=== PATIENT | male | born 1950 | race Caucasian/White ===

== ENCOUNTER → 2019-09-09 08:26 | Outpatient (CLI) | payer MEDICARE, SELFPAY ==
--- NOTE | ~2019-09-09 | MR_ITS ---
EXAMINATION: MR brain/brain stem wo/w con EXAM DATE: 09/09/2019 09:28 INDICATION: Left-sided paresthesia. TECHNIQUE: Magnetic resonance imaging (MRI) of the brain/brain stem obtained without contrast. Sagit emery T1, axial diffusion, gradient echo (T2*), T1, T2, FLAIR sequences obtained. Patient was then inj ected with 15 cc intravenous Multihance contrast. Axial and coronal postcontrast T1 weighted sequence s obtained. There is no prior study for comparison. FINDINGS: There is increased T2 and diffusion weighted signal intensity within the right thalamus, an d small regions within the right occipital lobe involving the peripheral feng matter cortex. Small re gion of ill-defined enhancement in the right thalamic signal abnormality. These are consistent with s ubacute infarctions (probably about a week in age). No acute intracranial hemorrhage or mass suspected. No obstructive hydrocephalus or extra-axial colle ctions. Mild microangiopathy and cerebral atrophy. There is mild mucoperiosteal thickening. Orbits an d soft tissues are unremarkable. IMPRESSION: 1. Right thalamic, small right occipital lobe signal abnormalities consistent with subacute infarcti ons. Consider 3 month follow-up MRI or head CT. 2. Mild age-related findings. I discussed infarctions with Brendan Poole MD at 09/09/2019 09:46 CDT. Reviewed, dictated and finalized at location A. IMPRESSION: 1. Right thalamic, small right occipital lobe signal abnormalities consistent with subacute infarctions. Consider 3 month follow-up MRI or head CT. 2. Mild age-related findings. I discussed infarctions with Brendan Poole MD at 09/09/2019 09:46 CDT.
[2019-09-09 08:56] LABS: Estimated Glomerular Filt Rate > 60
== END ==
PROVIDERS: PCP Internal Medicine; Visit Provider Internal Medicine
DX: G45.9 Transient cerebral ischemic attack, unspecified (principal); R93.0 Abnormal findings on diagnostic imaging of skull and head, not elsewhere classified
CPT/HCPCS: 36415; 70553; A9577

== ENCOUNTER 2019-10-07 21:32 | IRF | payer MEDICARE, SELFPAY ==
--- NOTE | ~2019-10-07 | XR_ITS ---
EXAMINATION: XR abdomen/kub 1V INDICATION: Abdominal distention TECHNIQUE: Supine views of the abdomen were obtained on 3 radiographs. COMPARISON: None FINDINGS: A large volume of colonic stool is present. There are no dilated loops of bowel. No free intraperiton eal gas is identified. Phleboliths are noted in the pelvis. There is calcified atherosclerosis. IMPRESSION: 1. Constipation. Reviewed, dictated and finalized at location A. IMPRESSION: 1. Constipation.
[2019-10-07 21:09] LABS: Glucose Point of Care 236 (65-105)
--- NOTE | 2019-10-07 21:35 | ADMGEN ---
This patient, Abilio Grijalva, was admitted to [facility] Room 222-02 at 1999. Patient/family oriented to hospital policies and general routines including ID bracelet, bed and alarms, visiting hours, pain management, procedures, bathroom and other care routines, personal items, smoking policy, room service/diet, and visiting hours. Valuables list has been completed. Information on how to activate the Rapid Response Team has been discussed. Patient/Family are encouraged to report perceived risks to care and to ask questions if they do not understand what they are told or what they should do.
[2019-10-07 22:00] VITALS: BP 159/84; PULSE 81; RESP 18; TEMP 36.5; O2SAT 96
[2019-10-07 22:51] VITALS: BMI 24.0
[2019-10-07] MEDS: HEPARIN SODIUM 5,000 UNITS/ML VIAL 5000 UNITS SUB-Q (23:30)
[2019-10-07] MEDS: PHENYTOIN SODIUM 100 MG CAP 200 MG PO (23:30)
[2019-10-08 05:35] LABS: Basophils Percent Auto 0.5 % (0.2-1.2); Eosinophils Absolute Auto 0.3 K/mm3 (0-0.3); Eosinophils Percent Auto 3.9 % (0-4.4); Hematocrit 35.7 % (42.0-52.0); Hemoglobin 12.4 g/dL (14.0-18.0); Immature Granulocyte Absolute 0.04 K/mm3 (0.00-0.031); Immature Granulocyte Percent A 0.5 % (0-0.5); Lymphocytes Absolute Auto 1.02 K/mm3 (0.9-3.2); Lymphocytes Percent Auto 13.7 % (18.3-44.2); Mean Corpuscular HGB Conc 34.7 g/dl (32-36); Mean Corpuscular Hemoglobin 33.3 pg (26-34); Mean Platelet Volume 9.8 fl (7.4-10.4); Monocytes Absolute Auto 0.8 K/mm3 (0.1-0.6); Monocytes Percent Auto 11.2 % (2.6-8.5); Neutrophils Absolute Auto 5.2 K/mm3 (1.3-6.7); Neutrophils Percent Auto 70.2 % (45.5-73.1); Platelet Count Result 187 k/mm3 (150-375); Red Blood Count 3.72 M/mm3 (4.6-6.20); Red Cell Distribution Width 12.6 % (11.5-14.5); White Blood Count 7.4 K/mm3 (4.5-10.0)
[2019-10-08 05:38] LABS: Hemoglobin A1C 7.8 % (<5.7)
[2019-10-08 05:42] LABS: Cholesterol 123 mg/dL (0-200)
[2019-10-08 05:55] LABS: Anion Gap 5 mmol/L (8-16); Blood Urea Nitrogen 20 mg/dL (9-20); Calcium 7.5 mg/dL (8.4-10.2); Carbon Dioxide 23 mmol/L (22-30); Chloride 107 mmol/L (98-107); Estimated CRCL calculation 101 ml/min; Estimated Glomerular Filt Rate > 60; Glucose 164 mg/dL (75-110); Potassium 3.9 mmol/L (3.4-5.0); Sodium 135 mmol/L (137-145)
[2019-10-08 06:00] VITALS: BP 155/88; PULSE 86; RESP 18; TEMP 36.1; O2SAT 95
[2019-10-08] MEDS: HEPARIN SODIUM 5,000 UNITS/ML VIAL 5000 UNITS SUB-Q ×3 (06:03→20:03)
[2019-10-08 06:11] LABS: Glucose Point of Care 185 (65-105)
[2019-10-08] MEDS: LEVOTHYROXINE SODIUM 50 MCG TABLET PO (07:36)
[2019-10-08] MEDS: VALSARTAN 160 MG TABLET 320 MG PO (09:17)
[2019-10-08] MEDS: SENNA/DOCUSATE SODIUM TABLET 1 TAB PO ×2 (09:17→18:03)
[2019-10-08] MEDS: TAMSULOSIN HCL 0.4 MG CAPSULE PO (09:18)
[2019-10-08] MEDS: amLODIPine BESYLATE 5 MG TABLET 10 MG PO (09:18)
[2019-10-08] MEDS: PHENYTOIN SODIUM 100 MG CAP 200 MG PO (09:18)
[2019-10-08] MEDS: ASPIRIN 81 MG CHEWABLE TABLET PO (09:18)
[2019-10-08] MEDS: ATORVASTATIN 40 MG TABLET PO (09:18)
[2019-10-08] MEDS: ACETAMINOPHEN 325 MG TABLET 650 MG PO (10:56)
[2019-10-08 11:00] VITALS: BMI 10.0
[2019-10-08 11:44] LABS: Glucose Point of Care 256 (65-105)
--- NOTE | 2019-10-08 12:21 | WPDREHABHP ---
H&P: HPI History of Present Illness Date/Time: 10/08/19 12:21 Chief complaint: CVA Narrative: Abilio Grijalva is a 69 year old male HISTORY OF PRESENT ILLNESS: The patient's primary rehab impairment category isStroke [] The etiologic diagnosis is acute infarct right occipital lobe right cerebral peduncle and adjacent right thalamus[] I saw this patient [id number] on on October 08, 2019 at 12 noon[] The patient is a 66 years old male with past medical history of diabetes mellitus type 2 and hypertension who presented to [facility] on October 04, 2019 after waking up with left-sided weakness. Per patient report he had an MRI a week ago at [facility] for left-sided numbness and was told that he had mini strokes on arrival to the emergency room the patient's NIHSS was 12 CT of the head showed right occipital encephalomalacia. CTA showed right P1 occlusion. CT perfusion showed old to be 0cc area at risk 18cc. He did not receive tPA as he presented outside the window. Mechanical thrombectomy was not considered as a right occipital infarct appeared to be developed. Neurology was consulted and the patient was continued on atorvastatin and aspirin. Brain MRI demonstrated acute infarct in the right occipital lobe, right cerebral peduncle, and adjacent right thalamus. EKG and echocardiogram with bubble study were negative for potential contributing factors. CT angiography did showed complete occlusion of the posterior cerebral artery in the P1 region. Glynn was unremarkable. A loop recorder was placed. The patient passed a swallowing study and is on a mechanical soft diet with thin liquids. The patient's hospital course has been significant for hypertension hyperglycemia leukocytosis left inferior quadrant anopsia progressing to full left homonymous hemianopsia Physical examination continues to reveal left-sided hemiparesis with decreased gross motor control impaired balance and decreased safety awareness. The patient was discharged to rehab on subcutaneous heparin for DVT prophylaxis. The patient has no travelled outside the [place] or had contact with someone who wasill or has travelied outside the [place] in the past 21 days patient has not travelied to an area of the [place] that is experiencing transmission of the Coronavirus and has not had close personal contact with anyone that has.The patient does not havefever, not experience any lower respiratory illness symptoms. Therapy was initiated at the acute care facility and the patient transferred to us from [[facility]] on October 07, 2019 [] FALLS OR SURGERIES: The patient has had [no] major surgeries in the 100 days prior to admission. They had [no] falls in the past year. They had [no] falls with injury in the past year. PAST MEDICAL HISTORY: [ diabetes mellitus type 2 hypertension and prior TIAs] PAST SURGICAL HISTORY: [ none] SOCIAL HISTORY: [ the patient lives independently in a 1 level home with 3 steps to enter. The patient was completely independent and only used a cane when his knees were hurting. He was independent with cooking and cleaning. His daughter and son-in-law checked on the patient daily. The patient's family is very supportive and wants the patient to come home. , his ability to do so will depend on what the patient is able to achieve with intensive therapy. Drinks socially, denies smoking or using drugs.] FAMILY HISTORY: Noncontributory[] PRIOR LEVEL OF FUNCTION: Eating was [INDEPENDENT] Oral Care was [INDEPENDENT] Toileting Hygiene was [INDEPENDENT] Shower/Bathing was [INDEPENDENT] Upper Body Dressing was [INDEPENDENT] Lower Body Dressing was [INDEPENDENT] Donning/[place] Footwear was [INDEPENDENT] Rolling Left and Right was [INDEPENDENT] Sit to Lying was [INDEPENDENT] Lying to Sitting was [INDEPENDENT] Sit to Stand was [INDEPENDENT] Bed to Chair Transfers was [INDEPENDENT] Toilet Transfers was [INDEPENDENT] Walking was [
--- NOTE | 2019-10-08 13:56 | PCCCNOTE ---
On 10/08/19, the student, [Everardo Don ], provided care and completed [facility] documentation on this patient. I have reviewed the student's documentation and agree with the findings.
[2019-10-08 14:00] VITALS: BP 148/78; PULSE 84; RESP 18; TEMP 36.3; O2SAT 98
[2019-10-08 14:16] VITALS: BMI 24.0
[2019-10-08 16:56] LABS: Glucose Point of Care 268 (65-105)
[2019-10-08] MEDS: metFORMIN HCL XR 500 MG TAB.SR.24H 1000 MG PO (16:56)
[2019-10-08 18:15] LABS: Add Urine Microscopic? YES; Appearance Urine Clear (Clear); Bilirubin Urine Negative (Negative); Blood Urine 1+ (Negative); Color Urine Yellow (Yellow); Glucose Urine UA 3+ mg/dL (Negative); Ketones Urine Negative (Negative); Leukocyte Esterase Ur Negative LEU/UL (Negative); Nitrate Urine Negative (Negative); Protein Urine 2+ mg/dL (Negative); Specific Grav Ur 1.015 (1.001-1.035); Urobilinogen Urine Negative mg/dL (<2.0); WBC Urine 0-3 /hpf
[2019-10-08] MEDS: PHENYTOIN SODIUM 100 MG CAP 300 MG PO (20:03)
[2019-10-08] MEDS: INSULIN GLARGINE (*BKC) 100 UNITS/ML 60 UNITS SUB-Q (20:24)
[2019-10-08 20:55] LABS: Glucose Point of Care 294 (65-105)
[2019-10-08 21:57] VITALS: BP 146/87; PULSE 95; RESP 18; TEMP 35.7; O2SAT 96
[2019-10-09] MEDS: HEPARIN SODIUM 5,000 UNITS/ML VIAL 5000 UNITS SUB-Q ×3 (05:22→20:09)
[2019-10-09] MEDS: LEVOTHYROXINE SODIUM 50 MCG TABLET PO (05:22)
[2019-10-09 06:00] VITALS: BP 152/71; PULSE 89; RESP 18; TEMP 36.1; O2SAT 97
[2019-10-09 07:02] LABS: Glucose Point of Care 185 (65-105)
[2019-10-09] MEDS: amLODIPine BESYLATE 5 MG TABLET 10 MG PO (09:31)
[2019-10-09] MEDS: ASPIRIN 81 MG CHEWABLE TABLET PO (09:31)
[2019-10-09] MEDS: SENNA/DOCUSATE SODIUM TABLET 1 TAB PO ×2 (09:32→18:24)
[2019-10-09] MEDS: VALSARTAN 160 MG TABLET 320 MG PO (09:32)
[2019-10-09] MEDS: PHENYTOIN SODIUM 100 MG CAP 200 MG PO (09:32)
[2019-10-09] MEDS: TAMSULOSIN HCL 0.4 MG CAPSULE PO (09:32)
[2019-10-09] MEDS: ATORVASTATIN 40 MG TABLET PO (09:32)
[2019-10-09] MEDS: ACETAMINOPHEN 325 MG TABLET 650 MG PO (09:42)
[2019-10-09 11:32] VITALS: BP 146/70; PULSE 82; O2SAT 95
[2019-10-09] MEDS: MECLIZINE HCL 25 MG TABLET PO (12:19)
--- NOTE | 2019-10-09 12:58 | RPD ---
INDIVIDUALIZED PLAN OF CARE FOR Abilio Grijalva Brief Synthesis of Pre-Admission Screen, Post-Admission Evaluation and Therapy Evaluations: The patient presents to rehab with an acute infarct right occipital lobe, right cerebral peduncle, and adjacent right thalamus. 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 Emotional needs will be monitored as depression is a common sequelae of stroke. The patient needs physician monitoring and treatment of anemia, hypertension, hyperglycemia, monitoring for adverse reactions to new medications, monitoring of infection, and pain control. The patient requires nursing services for frequent neuro checks, anticoagulation therapy, medication management and education, pressure relief and skin care management, monitoring of labs, diabetes management and education, and fall/safety precautions. Deficits include:ADLs, Balance, Cognition, Endurance, Family Training/Education, Mobility, Pain Management, ROM, Safety, Strength, Swallowing, Transfers Wreath Machine Operator/Case Management for: Discharge Planning and Patient/Family Counseling Physical Therapy: 5 days per week for 75 minutes. Treatments may include: Therapeutic Exercise, Gait Training, Neuromuscular Re-education, Transfer Training, Community Reintegration, Bed Mobility, Patient/Family Education, Wheelchair Mobility Group Therapy/Concurrent Therapy Rationales: -Improve attention span during functional activities in a distracted environment. -Enhance problem solving and/or adequate judgment skills during functional activities in a distracted environment. -Promote increased safety awareness in a distracted environment to reduce fall risk with functional tasks, transfers, and ambulation to allow a more safe, self-sufficient return to the home environment. -Improve dynamic balance skills to promote safety and independence with functional activities in a distracted environment for maximum gain. Occupational Therapy: 5 days per week for 75 minutes. Treatments may include: Therapeutic Exercise, Therapeutic Activity, Cognitive Training, Self-Care Transfer Training, Community Reintegration, Home Management, Patient/Family Education, Wheelchair Mobility Training, Energy Conservation Training Group Therapy/Concurrent Therapy Rationales: -Allow therapist to observe and teach generalization and carry-over of skills learned in individual therapy. -Enhance problem solving and sequencing skills during therapeutic activities in a distracted environment. -Promote increased safety awareness in a realistic setting to reduce fall risk with functional tasks due to visual and verbal distractions. -Increase functional level with ADLs, ADL transfers and use of adaptive equipment through therapeutic activities with others while promoting safety to allow a more safe, self-sufficient return home. Speech Therapy: 5 days per week for 30 minutes. Treatments may include: Dysphasia Therapy, Speech/Language/Communication Therapy, Cognitive Training, Patient/Family Education Group Therapy/Concurrent Therapy - Rationale: -Allow therapist to observe and teach generalization and carry-over of skills learned in individual therapy. -Improve comprehension skills with complex or abstract ideas through discussion in a realistic setting. -Enhance problem solving skills with complex issues during activities in a distracted environment. -Promote increased memory skills and concentration in a distracted environment for a safe transition home. -Improve attention and focus with language/communication skills in a realistic and supportive therapeutic setting.
[2019-10-09 13:01] VITALS: BP 141/79; PULSE 85; O2SAT 96; BMI 10.0
[2019-10-09 14:00] VITALS: BP 163/68; PULSE 80; RESP 20; TEMP 36.5; O2SAT 96
--- NOTE | 2019-10-09 14:19 | WPDNEURORHBP ---
Subjective Date/time seen: 69 years old admitted to the hospital for acute infarct in the right occipital lobe and the right patent also Joya adjacent thalamus in addition to comorbid condition of diabetes mellitus type 2 [id number]/21/20 14:19 Review of Systems Review of Systems: Narrative: reviewed the system are unremarkable except as noted in the admission history and physical examination Functional Status Transfers Ability Ability to Transfer In/Out of Chair: Total Assistance X 2 Exam Narrative: Exam Narrative: examination today reveals him to be awake alert cooperative ear nose throat examination normal neck supple with no cervical bruits no thyromegaly no lymphadenopathy heart regular with no murmur lungs clear to auscultation abdomen soft with no organomegaly or examination is consistent with a left hemiparesis with hyperreflexia upgoing left plantar response extremity is normal his skin clear and psychologically stable Objective Data Vital Signs Vital Signs: Vital Signs - 24 hr 10/08/19 21:57 10/09/19 06:00 Temperature 35.7 C L 36.1 C L Pulse Rate 95 89 Respiratory Rate 18 18 Blood Pressure 146/87 H 152/71 H Pulse Oximetry 96 97 Intake/Output Intake/Output: Intake & Output 10/06/19 10/07/19 10/08/19 10/09/19 23:59 23:59 23:59 23:59 Intake Total 720 440 Output Total 1250 1400 Balance -530 -960 Meds/Results Medications: Active Medications Generic Name Dose Route Start Last Admin Trade Name Freq PRN Reason Stop Dose Admin Acetaminophen 650 mg 10/08/19 00:56 10/09/19 09:42 Tylenol Tablet PO 650 mg Q4H PRN Administration Headache Amlodipine Besylate 10 mg 10/08/19 09:00 10/09/19 09:31 Norvasc PO 10 mg DAILY PALKA Administration Aspirin 81 mg 10/08/19 08:00 10/09/19 09:31 Aspirin Chewable PO 81 mg DAILY@0800 PALAK Administration Atorvastatin Calcium 40 mg 10/08/19 09:00 10/09/19 09:32 Lipitor PO 40 mg DAILY PALAK Administration Dextrose 12.5 gm 10/07/19 22:21 Dextrose 50% Syringe IV PUSH PRN PRN Hypoglycemia Protocol Fluticasone Propionate 1 spray 10/09/19 21:00 Flonase 0.05% Nasal [place] NASAL Q12HR PALAK Glucagon 1 mg 10/07/19 22:21 Glucagon For Inj IM PRN PRN Hypoglycemia Protocol Glucose 15 gm 10/07/19 22:21 Glutose 15 PO PRN PRN Hypoglycemia Protocol Heparin Sodium (Porcine) 5,000 units 10/07/19 22:05 10/09/19 05:22 Heparin Sodium SUB-Q 5,000 units Q8HR PALAK Administration Dextrose 1,000 mls @ 100 mls/hr 10/07/19 22:21 Dextrose 5% 1,000 Ml IVPB PRN PRN Hypoglycemia Protocol Insulin Glargine 60 units 10/08/19 21:00 10/08/19 20:24 Lantus SUB-Q 60 units HS PALAK Administration Levothyroxine Sodium 50 mcg 10/08/19 06:30 10/09/19 05:22 Synthroid PO 50 mcg DAILY@0630 PALAK Administration Meclizine HCl 25 mg 10/08/19 11:42 10/09/19 12:19 Antivert PO 25 mg QID PRN Administration Dizziness Metformin HCl 1,000 mg 10/08/19 17:00 10/08/19 16:56 Glucophage Xr PO 1,000 mg Q24H PALAK Administration Phenytoin Sodium 200 mg 10/08/19 09:00 10/09/19 09:32 Dilantin [place] PO 11/07/19 09:01 200 mg QAM PALAK Administration Phenytoin Sodium 300 mg 10/08/19 21:00 10/08/19 20:03 Dilantin [place] PO 11/07/19 22:11 300 mg HS PALAK Administration Polyethylene Glycol 17 gm 10/07/19 21:51 Miralax PO DAILY PRN Constipation Senna/Docusate Sodium 1 tab 10/08/19 09:00 10/09/19 09:32 Senokot S Tablet PO 1 tab BID PALAK Administration Sitagliptin Phosphate 100 mg 10/08/19 17:00 10/08/19 16:56 Januvia PO 100 mg Q24H PALAK Administration Tamsulosin HCl 0.4 mg 10/08/19 09:00 10/09/19 09:32 Flomax PO 0.4 mg DAILY PALAK Administration Valsartan 320 mg 10/08/19 09:00 10/09/19 09:32 Diovan PO 11/07/19 09:01 320 mg DAILY PALAK Administrati
[2019-10-09 17:07] LABS: Glucose Point of Care 284 (65-105)
[2019-10-09] MEDS: metFORMIN HCL XR 500 MG TAB.SR.24H 1000 MG PO (18:24)
[2019-10-09] MEDS: FLUTICASONE PROPIONATE 0.05% NA SPR 16 GM BTL (*BKC) 1 SPRAY NASAL (20:08)
[2019-10-09] MEDS: PHENYTOIN SODIUM 100 MG CAP 300 MG PO (20:09)
[2019-10-09] MEDS: INSULIN GLARGINE (*BKC) 100 UNITS/ML 60 UNITS SUB-Q (20:12)
[2019-10-09 21:18] LABS: Glucose Point of Care 257 (65-105)
[2019-10-09 22:00] VITALS: BP 158/89; PULSE 94; RESP 16; TEMP 36.8; O2SAT 93
[2019-10-10] MEDS: ACETAMINOPHEN 325 MG TABLET 650 MG PO ×2 (05:17→19:40)
[2019-10-10 06:00] VITALS: BP 169/88; PULSE 90; RESP 20; TEMP 36.6; O2SAT 96
[2019-10-10 06:45] LABS: Glucose Point of Care 211 (65-105)
[2019-10-10] MEDS: HEPARIN SODIUM 5,000 UNITS/ML VIAL 5000 UNITS SUB-Q ×3 (06:49→19:41)
[2019-10-10] MEDS: LEVOTHYROXINE SODIUM 50 MCG TABLET PO (06:50)
[2019-10-10] MEDS: ASPIRIN 81 MG CHEWABLE TABLET PO (08:00)
[2019-10-10] MEDS: FLUTICASONE PROPIONATE 0.05% NA SPR 16 GM BTL (*BKC) 1 SPRAY NASAL (09:14)
[2019-10-10] MEDS: TAMSULOSIN HCL 0.4 MG CAPSULE PO (09:14)
[2019-10-10] MEDS: VALSARTAN 160 MG TABLET 320 MG PO (09:14)
[2019-10-10] MEDS: PHENYTOIN SODIUM 100 MG CAP 200 MG PO (09:14)
[2019-10-10] MEDS: ATORVASTATIN 40 MG TABLET PO (09:14)
[2019-10-10] MEDS: amLODIPine BESYLATE 5 MG TABLET 10 MG PO (09:14)
[2019-10-10] MEDS: SENNA/DOCUSATE SODIUM TABLET 1 TAB PO ×2 (09:14→17:07)
[2019-10-10 11:05] VITALS: BP 160/80; PULSE 91; O2SAT 94
[2019-10-10 12:33] LABS: Glucose Point of Care 233 (65-105)
[2019-10-10 14:00] VITALS: BP 150/76; PULSE 99; RESP 20; TEMP 36.5; O2SAT 96
--- NOTE | 2019-10-10 15:51 | WPDNEURORHBP ---
Subjective Date/time seen: 10/10/19 15:51 Interval history: this 69-year-old gentleman is here after having had right occipital lobe, right cerebral peduncle, and adjusted right thalamus stroke which has left him with significant weakness of the left side for almost to a point of hemiplegia but he has been complaining of left ear pain which seems like a neurology a type of pain he is said is started after the stroke and never had this kind of the pain seems to be rather very uncomfortable with the pain that is also also in the mild occipital headache also beside that he remains awake and alert denies any chest pain shortness breath fever chills sore throat Review of Systems Review of Systems: All systems reviewed & are unremarkable except as noted in HPI and below Functional Status Transfers Ability Ability to Transfer In/Out of Chair: Total Assistance X 2 Exam Const: General: uncomfortable Other: complains of significant amount of pain 8 to 9/10 of the left pinna which is relatively reddish but no sign of infection HENMT: General nose exam: Normal nares present Mouth: Yes moist mucous membranes Eyes: General: appearance normal, both eyes and all related structures Neck: Neck: supple and no JVD Other: no carotid bruit Resp: Effort & Inspection: normal respiratory effort Auscultation: clear to auscultation bilaterally Cardio: Rate: regular rate Rhythm: regular rhythm GI: GI Palp: Yes Soft to palpation Auscultation: normal bowel sounds Skin: General skin exam: normal color and no rashes or lesions noted Neuro: Other: patient awake and alert well oriented and has a significant left-sided almost hemiplegia and visual field defect on the side Extrem: General: normal to inspection Psych: Other: short-term memory deficit and mild encephalopathy which is most likely due to amount of pain is having Objective Data Vital Signs Vital Signs: Vital Signs - 24 hr 10/09/19 22:00 10/10/19 06:00 10/10/19 14:00 Temperature 36.8 C 36.6 C 36.5 C Pulse Rate 94 90 99 Respiratory Rate 16 20 20 Blood Pressure 158/89 H 169/88 H 150/76 H Pulse Oximetry 93 96 96 Intake/Output Intake/Output: Intake & Output 10/07/19 10/08/19 10/09/19 10/10/19 23:59 23:59 23:59 23:59 Intake Total 720 920 480 Output Total 1713 6449 9021 [id number] -613 -4888 -820 Meds/Results Medications: Active Medications Generic Name Dose Route Start Last Admin Trade Name Freq PRN Reason Stop Dose Admin Acetaminophen 650 mg 10/08/19 00:56 10/10/19 05:17 Tylenol Tablet PO 650 mg Q4H PRN Administration Headache Hydrocodone Bitart/Acetaminophen 1 tab 10/10/19 14:30 [place] 5-325 Mg PO Q4H PRN Pain Rated 4-6 Hydrocodone Bitart/Acetaminophen 2 tab 10/10/19 14:30 [place] 5-325 Mg PO Q4H PRN Pain Rated 7-10 Amlodipine Besylate 10 mg 10/08/19 09:00 10/10/19 09:14 Norvasc PO 10 mg DAILY PALAK Administration Aspirin 81 mg 10/08/19 08:00 10/10/19 08:00 Aspirin Chewable PO 81 mg DAILY@0800 PALAK Administration Atorvastatin Calcium 40 mg 10/08/19 09:00 10/10/19 09:14 Lipitor PO 40 mg DAILY PALAK Administration Dextrose 12.5 gm 10/07/19 22:21 Dextrose 50% Syringe IV PUSH PRN PRN Hypoglycemia Protocol Fluticasone Propionate 1 spray 10/10/19 09:00 10/10/19 09:14 Flonase 0.05% Nasal [place] NASAL 1 spray QAM PALAK Administration Glucagon 1 mg 10/07/19 22:21 Glucagon For Inj IM PRN PRN Hypoglycemia Protocol Glucose 15 gm 10/07/19 22:21 Glutose 15 PO PRN PRN Hypoglycemia Protocol Heparin Sodium (Porcine) 5,000 units 10/07/19 22:05 10/10/19 14:48 Heparin Sodium SUB-Q 5,000 units Q8HR PALAK Administration Dextrose 1,000 mls @ 100 mls/hr 10/07/19 22:21 Dextrose 5% 1,000 Ml IVPB PRN PRN Hypoglycemia Protocol Insulin Glargine 60 units 10/08/19 21:00 10/09/19 20:12 Lantus SUB
[2019-10-10] MEDS: GABAPENTIN 100 MG CAPSULE PO (17:07)
[2019-10-10] MEDS: metFORMIN HCL XR 500 MG TAB.SR.24H 1000 MG PO (17:07)
[2019-10-10 18:16] LABS: Glucose Point of Care 336 (65-105)
[2019-10-10] MEDS: MECLIZINE HCL 25 MG TABLET PO (19:40)
[2019-10-10] MEDS: PHENYTOIN SODIUM 100 MG CAP 300 MG PO (19:41)
[2019-10-10] MEDS: INSULIN GLARGINE (*BKC) 100 UNITS/ML 60 UNITS SUB-Q (19:46)
[2019-10-10 20:15] VITALS: PULSE 73; RESP 20; O2SAT 93
[2019-10-10] MEDS: SALINE 0.65% NAS SOLN 44 ML BTL 1 SPRAY NASAL (21:18)
[2019-10-10 21:46] LABS: Glucose Point of Care 316 (65-105)
[2019-10-10 22:00] VITALS: BP 173/81; PULSE 73; RESP 20; TEMP 37.1; O2SAT 93
[2019-10-10] MEDS: QUEtiapine FUMARATE 25 MG TABLET PO (22:58)
[2019-10-11 00:16] LABS: Basophils Absolute Auto 0.1 K/mm3 (0.0-0.1); Basophils Percent Auto 0.6 % (0.2-1.2); Eosinophils Absolute Auto 0.2 K/mm3 (0-0.3); Eosinophils Percent Auto 2.3 % (0-4.4); Hematocrit 34.4 % (42.0-52.0); Hemoglobin 12.2 g/dL (14.0-18.0); Immature Granulocyte Absolute 0.12 K/mm3 (0.00-0.031); Immature Granulocyte Percent A 1.2 % (0-0.5); Lymphocytes Absolute Auto 1.64 K/mm3 (0.9-3.2); Lymphocytes Percent Auto 16.1 % (18.3-44.2); Mean Corpuscular HGB Conc 35.5 g/dl (32-36); Mean Corpuscular Hemoglobin 33.9 pg (26-34); Mean Corpuscular Volume 95.6 fl (80-100); Mean Platelet Volume 9.7 fl (7.4-10.4); Monocytes Absolute Auto 1.3 K/mm3 (0.1-0.6); Monocytes Percent Auto 13.1 % (2.6-8.5); Neutrophils Absolute Auto 6.8 K/mm3 (1.3-6.7); Neutrophils Percent Auto 66.7 % (45.5-73.1); Platelet Count Result 212 k/mm3 (150-375); Red Cell Distribution Width 12.8 % (11.5-14.5); White Blood Count 10.2 K/mm3 (4.5-10.0)
[2019-10-11 00:27] LABS: Alanine Aminotransferase 30 U/L (4-50); Albumin Level 3.3 g/dL (3.5-5.1); Alkaline Phosphatase 91 U/L (38-126); Anion Gap 7 mmol/L (8-16); Aspartate Amino Transferase 32 U/L (17-59); Bilirubin,Total < 0.1 mg/dL (0.2-1.3); Blood Urea Nitrogen 20 mg/dL (9-20); Calcium 8.4 mg/dL (8.4-10.2); Carbon Dioxide 23 mmol/L (22-30); Chloride 105 mmol/L (98-107); Estimated CRCL calculation 77 ml/min; Estimated Glomerular Filt Rate > 60; Glucose 283 mg/dL (75-110); Potassium 4.2 mmol/L (3.4-5.0); Sodium 135 mmol/L (137-145)
[2019-10-11] MEDS: HEPARIN SODIUM 5,000 UNITS/ML VIAL 5000 UNITS SUB-Q ×3 (05:55→21:27)
[2019-10-11] MEDS: LEVOTHYROXINE SODIUM 50 MCG TABLET PO (05:56)
[2019-10-11 06:00] VITALS: BP 180/102; PULSE 94; RESP 20; TEMP 36.4; O2SAT 97
[2019-10-11 06:30] LABS: Glucose Point of Care 204 (65-105)
[2019-10-11] MEDS: amLODIPine BESYLATE 5 MG TABLET 10 MG PO (06:53)
[2019-10-11] MEDS: ASPIRIN 81 MG CHEWABLE TABLET PO (09:58)
[2019-10-11] MEDS: ATORVASTATIN 40 MG TABLET PO (09:58)
[2019-10-11] MEDS: VALSARTAN 160 MG TABLET 320 MG PO (09:58)
[2019-10-11] MEDS: TAMSULOSIN HCL 0.4 MG CAPSULE PO (09:58)
[2019-10-11] MEDS: SENNA/DOCUSATE SODIUM TABLET 1 TAB PO ×2 (09:59→19:26)
[2019-10-11] MEDS: PHENYTOIN SODIUM 100 MG CAP 200 MG PO (09:59)
[2019-10-11] MEDS: FLUTICASONE PROPIONATE 0.05% NA SPR 16 GM BTL (*BKC) 1 SPRAY NASAL (09:59)
[2019-10-11] MEDS: MECLIZINE HCL 25 MG TABLET PO (09:59)
[2019-10-11] MEDS: GABAPENTIN 100 MG CAPSULE PO ×2 (10:00→13:52)
[2019-10-11 12:35] LABS: Glucose Point of Care 299 (65-105)
[2019-10-11 14:00] VITALS: BP 151/83; PULSE 96; RESP 20; TEMP 37; O2SAT 94
--- NOTE | 2019-10-11 17:56 | WPDNEURORHBP ---
Subjective Date/time seen: 10/11/19 17:56 Interval history: this 69-year-old gentleman is here after having had right occipital, right cerebral peduncle and right thalamus stroke with moderately severe left-sided faith paresis almost hemiplegia but complaining of neuralgic type of pain and the left temporal left occipital and left posterior auricular area which has responded a little with the low-dose of gabapentin his main issue is the pain for right now which is relatively better otherwise no nausea vomiting no change in the mental status no activity from the medical standpoint but his sugars are running high and will need adjustment accordingly Review of Systems Review of Systems: All systems reviewed & are unremarkable except as noted in HPI and below Functional Status Transfers Ability Ability to Transfer In/Out of Chair: Total Assistance X 2 Exam Const: General: uncomfortable HENMT: General nose exam: Normal nares present Mouth: Yes moist mucous membranes Other: no sign of here infection either externally or in the middle ear Eyes: General: appearance normal, both eyes and all related structures Neck: Neck: supple and no JVD Resp: Effort & Inspection: normal respiratory effort Auscultation: clear to auscultation bilaterally Cardio: Rate: regular rate Rhythm: regular rhythm GI: GI Palp: Yes Soft to palpation Auscultation: normal bowel sounds Skin: General skin exam: normal color and no rashes or lesions noted Neuro: Other: patient is awake and alert well oriented with significant left-sided weakness needing assistance all the activities of daily living Extrem: General: normal to inspection Psych: Other: signs of right hemispheric deficit Objective Data Vital Signs Vital Signs: Vital Signs - 24 hr 10/10/19 20:15 10/10/19 22:00 10/11/19 06:00 Temperature 37.1 C 36.4 C Pulse Rate 73 73 94 Respiratory Rate 20 20 20 Blood Pressure 173/81 H 180/102 H Pulse Oximetry 93 93 97 10/11/19 14:00 Temperature 37.0 C Pulse Rate 96 Respiratory Rate 20 Blood Pressure 151/83 H Pulse Oximetry 94 Intake/Output Intake/Output: Intake & Output 10/08/19 10/09/19 10/10/19 10/11/19 23:59 23:59 23:59 23:59 Intake Total 405 868 9019 880 Output Total 1250 2250 3900 3000 Balance -530 -0388 -2700 -2120 Meds/Results Medications: Active Medications Generic Name Dose Route Start Last Admin Trade Name Perryq PRN Reason Stop Dose Admin Acetaminophen 650 mg 10/08/19 00:56 10/10/19 19:40 Tylenol Tablet PO 650 mg Q4H PRN Administration Headache Hydrocodone Bitart/Acetaminophen 1 tab 10/10/19 14:30 10/10/19 23:02 [place] 5-325 Mg PO 1 tab Q4H PRN Administration Pain Rated 4-6 Hydrocodone Bitart/Acetaminophen 2 tab 10/10/19 14:30 10/11/19 11:52 [place] 5-325 Mg PO 2 tab Q4H PRN Administration Pain Rated 7-10 Amlodipine Besylate 10 mg 10/08/19 09:00 10/11/19 06:53 Norvasc PO 10 mg DAILY PALAK Administration Aspirin 81 mg 10/08/19 08:00 10/11/19 09:58 Aspirin Chewable PO 81 mg DAILY@0800 PALAK Administration Atorvastatin Calcium 40 mg 10/08/19 09:00 10/11/19 09:58 Lipitor PO 40 mg DAILY PALAK Administration Dextrose 12.5 gm 10/07/19 22:21 Dextrose 50% Syringe IV PUSH PRN PRN Hypoglycemia Protocol Fluticasone Propionate 1 spray 10/10/19 09:00 10/11/19 09:59 Flonase 0.05% Nasal [place] NASAL 1 spray QAM PALAK Administration Gabapentin 100 mg 10/10/19 17:00 10/11/19 13:52 Neurontin PO 100 mg TID PALAK Administration Glucagon 1 mg 10/07/19 22:21 Glucagon For Inj IM PRN PRN Hypoglycemia Protocol Glucose 15 gm 10/07/19 22:21 Glutose 15 PO PRN PRN Hypoglycemia Protocol Heparin Sodium (Porcine) 5,000 units 10/07/19 22:05 10/11/19 13:52 Heparin Sodium SUB-Q 5,000 units Q8HR PALAK Administration Dextrose 1,000 mls @ 100 mls/hr 10/07/19 22:21 D
[2019-10-11] MEDS: GABAPENTIN 300 MG CAPSULE PO (19:26)
[2019-10-11] MEDS: metFORMIN HCL XR 500 MG TAB.SR.24H 1000 MG PO (19:27)
[2019-10-11] MEDS: lisinopriL 10 MG TABLET PO (19:28)
[2019-10-11] MEDS: QUEtiapine FUMARATE 25 MG TABLET PO (21:27)
[2019-10-11] MEDS: PHENYTOIN SODIUM 100 MG CAP 300 MG PO (21:27)
[2019-10-11] MEDS: INSULIN GLARGINE (*BKC) 100 UNITS/ML 60 UNITS SUB-Q (21:28)
[2019-10-11] MEDS: ACETAMINOPHEN 325 MG TABLET 650 MG PO (21:37)
[2019-10-11 22:00] VITALS: BP 158/92; PULSE 100; RESP 18; TEMP 37.1; O2SAT 95
[2019-10-11 22:31] LABS: Glucose Point of Care 293 (65-105)
[2019-10-12 06:00] VITALS: BP 145/67; PULSE 93; RESP 18; TEMP 36.8; O2SAT 96
[2019-10-12] MEDS: SALINE 0.65% NAS SOLN 44 ML BTL 1 SPRAY NASAL (06:40)
[2019-10-12] MEDS: HEPARIN SODIUM 5,000 UNITS/ML VIAL 5000 UNITS SUB-Q ×3 (06:41→20:20)
[2019-10-12] MEDS: LEVOTHYROXINE SODIUM 50 MCG TABLET PO (06:41)
[2019-10-12 06:51] LABS: Glucose Point of Care 171 (65-105)
[2019-10-12] MEDS: INSULIN ASPART (*BKC) 100 UNITS/ML SUB-Q ×3 (09:22→17:08)
[2019-10-12] MEDS: FLUTICASONE PROPIONATE 0.05% NA SPR 16 GM BTL (*BKC) 1 SPRAY NASAL (09:24)
[2019-10-12] MEDS: SENNA/DOCUSATE SODIUM TABLET 1 TAB PO ×2 (09:25→17:08)
[2019-10-12] MEDS: PHENYTOIN SODIUM 100 MG CAP 200 MG PO (09:26)
[2019-10-12] MEDS: amLODIPine BESYLATE 5 MG TABLET 10 MG PO (09:26)
[2019-10-12] MEDS: TAMSULOSIN HCL 0.4 MG CAPSULE PO (09:26)
[2019-10-12] MEDS: ASPIRIN 81 MG CHEWABLE TABLET PO (09:26)
[2019-10-12] MEDS: VALSARTAN 160 MG TABLET 320 MG PO (09:26)
[2019-10-12] MEDS: ATORVASTATIN 40 MG TABLET PO (09:26)
[2019-10-12] MEDS: GABAPENTIN 300 MG CAPSULE PO ×3 (09:27→17:08)
--- NOTE | 2019-10-12 10:20 | WPDNEURORHBP ---
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 along with the neurologic pain receiving gabapentin but continues to complain of pain in his ear no associated nausea vomiting or change in the neurological status 10:20 Review of Systems Review of Systems: All systems reviewed & are unremarkable except as noted in HPI and below Functional Status Transfers Ability Ability to Transfer In/Out of Chair: Total Assistance X 2 Exam Narrative: Exam Narrative: examination reveals him to be awake alert cooperative complaining of left ear pain head normocephalic with no cranial bruit ear nose throat examination normal ears were examined with scope no redness of the tympanic membrane no purulent drainage neck is supple with no meningeal signs heart regular with no murmur lungs clear to auscultation abdomen is soft with no organomegaly neurological he is awake alert speech not dysphasic nor dysarthric pupils round regular leggett of visionfull. Extraocular movements are full face symmetrical tongue midline motor examination revealed himto have left hemiparesis extremities normalmental menta status examination is also normal Objective Data Vital Signs Vital Signs: Vital Signs - 24 hr 10/11/19 14:00 10/11/19 22:00 10/12/19 06:00 Temperature 37.0 C 37.1 C 36.8 C Pulse Rate 96 100 93 Respiratory Rate 20 18 18 Blood Pressure 151/83 H 158/92 H 145/67 H Pulse Oximetry 94 95 96 Intake/Output Intake/Output: Intake & Output 10/09/19 10/10/19 10/11/19 10/12/19 23:59 23:59 23:59 23:59 Intake Total 920 1200 1120 120 Output Total 2250 3900 3000 700 Balance -1330 -2700 -1880 -580 Meds/Results Medications: Active Medications Generic Name Dose Route Start Last Admin Trade Name Freq PRN Reason Stop Dose Admin Acetaminophen 650 mg 10/08/19 00:56 10/11/19 21:37 Tylenol Tablet PO 650 mg Q4H PRN Administration Headache Hydrocodone Bitart/Acetaminophen 1 tab 10/10/19 14:30 10/10/19 23:02 [place] 5-325 Mg PO 1 tab Q4H PRN Administration Pain Rated 4-6 Hydrocodone Bitart/Acetaminophen 2 tab 10/10/19 14:30 10/11/19 11:52 [place] 5-325 Mg PO 2 tab Q4H PRN Administration Pain Rated 7-10 Amlodipine Besylate 10 mg 10/08/19 09:00 10/12/19 09:26 Norvasc PO 10 mg DAILY PALAK Administration Aspirin 81 mg 10/08/19 08:00 10/12/19 09:26 Aspirin Chewable PO 81 mg DAILY@0800 PALAK Administration Atorvastatin Calcium 40 mg 10/08/19 09:00 10/12/19 09:26 Lipitor PO 40 mg DAILY PALAK Administration Dextrose 12.5 gm 10/07/19 22:21 Dextrose 50% Syringe IV PUSH PRN PRN Hypoglycemia Protocol Fluticasone Propionate 1 spray 10/10/19 09:00 10/12/19 09:24 Flonase 0.05% Nasal [place] NASAL 1 spray QAM PALAK Administration Gabapentin 300 mg 10/11/19 18:05 10/12/19 09:27 Neurontin PO 300 mg TID PALAK Administration Glucagon 1 mg 10/07/19 22:21 Glucagon For Inj IM PRN PRN Hypoglycemia Protocol Glucose 15 gm 10/07/19 22:21 Glutose 15 PO PRN PRN Hypoglycemia Protocol Heparin Sodium (Porcine) 5,000 units 10/07/19 22:05 10/12/19 06:41 Heparin Sodium SUB-Q 5,000 units Q8HR PALAK Administration Dextrose 1,000 mls @ 100 mls/hr 10/07/19 22:21 Dextrose 5% 1,000 Ml IVPB PRN PRN Hypoglycemia Protocol Insulin Aspart 5 units 10/12/19 08:00 10/12/19 09:22 Novolog SUB-Q 5 units TIDWM PALAK Administration Insulin Glargine 60 units 10/08/19 21:00 10/11/19 21:28 Lantus SUB-Q 60 units HS PALAK Administration Levothyroxine Sodium 50 mcg 10/08/19 06:30 10/12/19 06:41 Synthroid PO 50 mcg DAILY@0630 PALAK Administration Lisinopril 10 mg 10/11/19 18:55 10/11/19 19:28 Prinivil PO 10 mg DAILY PALAK Administration Meclizine HCl 25 mg 10/08/19 11:42 10/11/19 09:59
[2019-10-12 10:40] VITALS: BP 145/84; PULSE 105; O2SAT 94; BMI 10.0
[2019-10-12] MEDS: lisinopriL 10 MG TABLET PO (12:02)
[2019-10-12 12:16] LABS: Glucose Point of Care 197 (65-105)
[2019-10-12 13:45] VITALS: BMI 10.0
[2019-10-12 14:00] VITALS: BP 125/75; PULSE 108; RESP 18; TEMP 36.8; O2SAT 96
[2019-10-12 16:33] LABS: Add Urine Microscopic? YES; Appearance Urine Cloudy (Clear); Bacteria Urine 1+ /hpf; Bilirubin Urine Negative (Negative); Blood Urine 3+ (Negative); Color Urine Amber (Yellow); Glucose Urine UA 2+ mg/dL (Negative); Hyaline Casts Urine 20-29 /lpf; Ketones Urine Negative (Negative); Leukocyte Esterase Ur 3+ LEU/UL (NEGATIVE); Mucus Urine Heavy /lpf; Nitrate Urine Positive (Negative); Protein Urine 3+ mg/dL (Negative); RBC Urine >75 /hpf (0-2); Squamous Epithelial Cell Urine Occasional /hpf (Few); Urobilinogen Urine Negative mg/dL (<2.0); WBC Urine >75 /hpf (0-3)
[2019-10-12] MEDS: metFORMIN HCL XR 500 MG TAB.SR.24H 1000 MG PO (17:08)
[2019-10-12 17:31] LABS: Glucose Point of Care 243 (65-105)
--- NOTE | 2019-10-12 17:37 | PC.NURSE ---
1737 Urine collected earlier in the shift, positive results called to Dr. Cantrell, new orders recd and noted
[2019-10-12 20:01] LABS: Glucose Point of Care 269 (65-105)
[2019-10-12] MEDS: QUEtiapine FUMARATE 25 MG TABLET PO (20:09)
[2019-10-12] MEDS: PHENYTOIN SODIUM 100 MG CAP 300 MG PO (20:09)
[2019-10-12] MEDS: INSULIN GLARGINE (*BKC) 100 UNITS/ML 60 UNITS SUB-Q (20:18)
[2019-10-12 20:58] VITALS: BP 135/76; PULSE 107; RESP 20; TEMP 37.8; O2SAT 95
[2019-10-13] MEDS: HEPARIN SODIUM 5,000 UNITS/ML VIAL 5000 UNITS SUB-Q ×3 (05:51→21:39)
[2019-10-13] MEDS: LEVOTHYROXINE SODIUM 50 MCG TABLET PO (05:51)
[2019-10-13 06:00] VITALS: BP 152/86; PULSE 80; RESP 18; TEMP 36.1; O2SAT 94
[2019-10-13 06:48] LABS: Glucose Point of Care 184 (65-105)
[2019-10-13] MEDS: ASPIRIN 81 MG CHEWABLE TABLET PO (09:32)
[2019-10-13] MEDS: ATORVASTATIN 40 MG TABLET PO (09:32)
[2019-10-13] MEDS: amLODIPine BESYLATE 5 MG TABLET 10 MG PO (09:33)
[2019-10-13] MEDS: FLUTICASONE PROPIONATE 0.05% NA SPR 16 GM BTL (*BKC) 1 SPRAY NASAL (09:33)
[2019-10-13] MEDS: SENNA/DOCUSATE SODIUM TABLET 1 TAB PO ×2 (09:33→18:24)
[2019-10-13] MEDS: lisinopriL 10 MG TABLET PO (09:34)
[2019-10-13] MEDS: PHENYTOIN SODIUM 100 MG CAP 200 MG PO (09:34)
[2019-10-13] MEDS: GABAPENTIN 300 MG CAPSULE PO ×3 (09:34→18:24)
[2019-10-13] MEDS: TAMSULOSIN HCL 0.4 MG CAPSULE PO (09:35)
[2019-10-13] MEDS: VALSARTAN 160 MG TABLET 320 MG PO (09:35)
[2019-10-13] MEDS: INSULIN ASPART (*BKC) 100 UNITS/ML SUB-Q ×3 (09:44→18:27)
--- NOTE | 2019-10-13 12:10 | WPDNEURORHBP ---
Subjective Date/time seen: 10/13/19 12:10 Interval history: this 69-year-old gentleman is here after having had the right hemispheric stroke which also involved cerebral peduncle and the thalamus and has been complaining of the pain around the left ear left temporal area and the occipital area which has pattern of Neurology a and has responded little bit to gabapentin the other issue is facing is the hallucinations which he knows is not really and I am suspecting these could be related to his stroke the so called pendencular hallucinations According to his son-in-law at 1 point he was on metoprolol and it was suspected that the hallucinations might have been due to however is no more on metoprolol here Beside the above-mentioned complaint the patient is awake and alert follows commands and engage in therapy with the occupational therapy is better with the physical therapy student twice on the paddle bar is speech therapy noted significant right hemispheric deficit and his inability to comprehend what exactly happened to his left side and also unable to comprehend complex conversation Review of Systems Review of Systems: All systems reviewed & are unremarkable except as noted in HPI and below Functional Status Transfers Ability Ability to Transfer In/Out of Chair: Total Assistance X 2 Exam Const: General: comfortable and no acute distress HENMT: General nose exam: Normal nares present Mouth: Yes moist mucous membranes Eyes: General: appearance normal, both eyes and all related structures Neck: Neck: supple and no JVD Resp: Effort & Inspection: normal respiratory effort Auscultation: clear to auscultation bilaterally Cardio: Rate: regular rate Rhythm: regular rhythm GI: GI Palp: Yes Soft to palpation Auscultation: normal bowel sounds Skin: General skin exam: normal color and no rashes or lesions noted Neuro: Other: patient is awake alert oriented x3 with short-term memory deficit and right hemispheric deficit with inability to know exactly what's going on in his left side along with the left-sided visual field defect and neglect however I did not see him actively hallucinating Extrem: General: normal to inspection Psych: Mental Status: mental status grossly normal Other: right hemispheric deficit Objective Data Vital Signs Vital Signs: Vital Signs - 24 hr 10/12/19 14:00 10/12/19 20:58 10/13/19 06:00 Temperature 36.8 C 37.8 C H 36.1 C L Pulse Rate 108 H 107 H 80 Respiratory Rate 18 20 18 Blood Pressure 125/75 135/76 152/86 H Pulse Oximetry 96 95 94 Intake/Output Intake/Output: Intake & Output 10/10/19 10/11/19 10/12/19 10/13/19 23:59 23:59 23:59 23:59 Intake Total 1200 1120 1360 360 Output Total 3900 3000 1050 600 Balance -2700 -1880 310 -240 Meds/Results Medications: Active Medications Generic Name Dose Route Start Last Admin Trade Name Freq PRN Reason Stop Dose Admin Acetaminophen 650 mg 10/08/19 00:56 10/11/19 21:37 Tylenol Tablet PO 650 mg Q4H PRN Administration Headache Hydrocodone Bitart/Acetaminophen 1 tab 10/10/19 14:30 10/12/19 13:31 [place] 5-325 Mg PO 1 tab Q4H PRN Administration Pain Rated 4-6 Hydrocodone Bitart/Acetaminophen 2 tab 10/10/19 14:30 10/13/19 11:35 [place] 5-325 Mg PO 2 tab Q4H PRN Administration Pain Rated 7-10 Amlodipine Besylate 10 mg 10/08/19 09:00 10/13/19 09:33 Norvasc PO 10 mg DAILY PALAK Administration Aspirin 81 mg 10/08/19 08:00 10/13/19 09:32 Aspirin Chewable PO 81 mg DAILY@0800 PALAK Administration Atorvastatin Calcium 40 mg 10/08/19 09:00 10/13/19 09:32 Lipitor PO 40 mg DAILY PALAK Administration Dextrose 12.5 gm 10/07/19 22:21 Dextrose 50% Syringe IV PUSH PRN PRN Hypoglycemia Protocol Fluticasone Propionate 1 spray 10/10/19 09:00 10/13/19 09:33 Flonase 0.05% Nasal [place] NASAL 1 spray QAM PALAK Administration Gabapentin 300 mg 10/11/19 18:05
[2019-10-13 12:34] LABS: Glucose Point of Care 201 (65-105)
--- NOTE | 2019-10-13 12:52 | PCNFU ---
Nutrition Follow-Up Complete: Predicted suboptimal oral intake related to dysphagia as evidenced by patient requesting solid foods on minced and moist diet. Goal: Patient to consume 75% of meals/supplements or greater. Patient is meeting goal with an average of 88% or more meal consumption and drinking 75% of supplements. Will continue with same goal. Pt current nutrition is DBCC/minced and moist. Nutrition recommendation: Agree with current recommendations Last recorded weight is 76.2 kg. Recommend obtaining new weight. Bowel Motility: last bowel movement reported on 10/12/19 Labs Reviewed: Hgb (12.2) Hct (34.4) POC Glucose (184) Meds Noted: Lantus, Norvasc, Prinivil, Glucophage, Antivert, [place], Lipitor, Neurontin, Flomax, Miralax, Senna, Januvia, Dilantin Additional Notes: Patient states appetite is good and enjoying Glucerna BID. Chest incision on skin healing well according to report. Follow up in 7 days.
--- NOTE | 2019-10-13 13:32 | PCNSR ---
On 10/13/19, the student, Luciano Baptiste, provided care and completed [facility] documentation on this patient. I have reviewed the student's documentation and agree with the findings.
[2019-10-13 14:00] VITALS: BP 112/69; PULSE 88; RESP 20; TEMP 36.1; O2SAT 92
[2019-10-13 16:58] LABS: Glucose Point of Care 201 (65-105)
[2019-10-13] MEDS: metFORMIN HCL XR 500 MG TAB.SR.24H 1000 MG PO (18:24)
[2019-10-13] MEDS: ACETAMINOPHEN 325 MG TABLET 650 MG PO (18:27)
[2019-10-13] MEDS: PHENYTOIN SODIUM 100 MG CAP 300 MG PO (21:39)
[2019-10-13] MEDS: QUEtiapine FUMARATE 25 MG TABLET PO (21:40)
[2019-10-13] MEDS: INSULIN GLARGINE (*BKC) 100 UNITS/ML 60 UNITS SUB-Q (21:44)
[2019-10-13 21:53] VITALS: BP 141/70; PULSE 100; RESP 18; TEMP 35.7; O2SAT 93
[2019-10-13 22:03] LABS: Glucose Point of Care 184 (65-105)
[2019-10-14 05:38] VITALS: BP 122/65; PULSE 84; RESP 18; TEMP 35.3; O2SAT 94
[2019-10-14] MEDS: LEVOTHYROXINE SODIUM 50 MCG TABLET PO (05:55)
[2019-10-14] MEDS: HEPARIN SODIUM 5,000 UNITS/ML VIAL 5000 UNITS SUB-Q ×3 (05:55→22:30)
[2019-10-14 06:48] LABS: Glucose Point of Care 177 (65-105)
[2019-10-14] MEDS: INSULIN ASPART (*BKC) 100 UNITS/ML SUB-Q ×3 (07:20→17:39)
[2019-10-14] MEDS: amLODIPine BESYLATE 5 MG TABLET 10 MG PO (09:29)
[2019-10-14] MEDS: VALSARTAN 160 MG TABLET 320 MG PO (09:29)
[2019-10-14] MEDS: ASPIRIN 81 MG CHEWABLE TABLET PO (09:29)
[2019-10-14] MEDS: FLUTICASONE PROPIONATE 0.05% NA SPR 16 GM BTL (*BKC) 1 SPRAY NASAL (09:30)
[2019-10-14] MEDS: lisinopriL 10 MG TABLET PO (09:30)
[2019-10-14] MEDS: GABAPENTIN 300 MG CAPSULE PO ×3 (09:30→17:36)
[2019-10-14] MEDS: SENNA/DOCUSATE SODIUM TABLET 1 TAB PO ×2 (09:30→17:35)
[2019-10-14] MEDS: ATORVASTATIN 40 MG TABLET PO (09:30)
[2019-10-14] MEDS: TAMSULOSIN HCL 0.4 MG CAPSULE PO (09:30)
[2019-10-14] MEDS: PHENYTOIN SODIUM 100 MG CAP 200 MG PO (09:30)
[2019-10-14 12:15] LABS: Glucose Point of Care 191 (65-105)
[2019-10-14 14:00] VITALS: BP 119/60; PULSE 86; RESP 16; TEMP 36.8; O2SAT 95
--- NOTE | 2019-10-14 14:24 | WPDNEURORHBP ---
Subjective Date/time seen: 10/14/19 14:24 Interval history: this 69-year-old gentleman is here with right hemispheric stroke with significant left-sided hemiparesis left-sided neglect left-sided visual field defect his neurologic pain on left side of the face and the head is improving and it is at least 50 to 60% better and is much more comfortable he denies any nausea vomiting chest pain shortness of breath fever chills sore throat Review of Systems Review of Systems: All systems reviewed & are unremarkable except as noted in HPI and below Functional Status Transfers Ability Ability to Transfer In/Out of Chair: Total Assistance X 2 Exam Const: General: comfortable and no acute distress HENMT: General nose exam: Normal nares present Mouth: Yes moist mucous membranes Eyes: General: appearance normal, both eyes and all related structures Neck: Neck: supple and no JVD Resp: Effort & Inspection: normal respiratory effort Auscultation: clear to auscultation bilaterally Cardio: Rate: regular rate Rhythm: regular rhythm GI: GI Palp: Yes Soft to palpation Auscultation: normal bowel sounds Skin: General skin exam: normal color and no rashes or lesions noted Neuro: Other: patient is awake and alert well oriented not any distress with slightly improving left-sided hemiparesis where the left lower extremity shows some movement or however the left arm is quite flaccid at this time with hyperreflexia and positive Babinski needing assistance all the activities of daily living Extrem: General: normal to inspection Psych: Mental Status: mental status grossly normal Other: right hemispheric deficit Objective Data Vital Signs Vital Signs: Vital Signs - 24 hr 10/13/19 21:53 10/14/19 05:38 10/14/19 14:00 Temperature 35.7 C L 35.3 C L 36.8 C Pulse Rate 100 84 86 Respiratory Rate 18 18 16 Blood Pressure 141/70 H 122/65 119/60 Pulse Oximetry 93 94 95 Intake/Output Intake/Output: Intake & Output 10/11/19 10/12/19 10/13/19 10/14/19 23:59 23:59 23:59 23:59 Intake Total 1120 1360 2160 480 Output Total 3000 1050 1525 3800 Balance -1880 310 635 -3320 Meds/Results Medications: Active Medications Generic Name Dose Route Start Last Admin Trade Name Freq PRN Reason Stop Dose Admin Acetaminophen 650 mg 10/08/19 00:56 10/13/19 18:27 Tylenol Tablet PO 650 mg Q4H PRN Administration Headache Hydrocodone Bitart/Acetaminophen 1 tab 10/10/19 14:30 10/12/19 13:31 [place] 5-325 Mg PO 1 tab Q4H PRN Administration Pain Rated 4-6 Hydrocodone Bitart/Acetaminophen 2 tab 10/10/19 14:30 10/13/19 21:41 [place] 5-325 Mg PO 2 tab Q4H PRN Administration Pain Rated 7-10 Amlodipine Besylate 10 mg 10/08/19 09:00 10/14/19 09:29 Norvasc PO 10 mg DAILY PALAK Administration Aspirin 81 mg 10/08/19 08:00 10/14/19 09:29 Aspirin Chewable PO 81 mg DAILY@0800 PALAK Administration Atorvastatin Calcium 40 mg 10/08/19 09:00 10/14/19 09:30 Lipitor PO 40 mg DAILY PALAK Administration Dextrose 12.5 gm 10/07/19 22:21 Dextrose 50% Syringe IV PUSH PRN PRN Hypoglycemia Protocol Fluticasone Propionate 1 spray 10/10/19 09:00 10/14/19 09:30 Flonase 0.05% Nasal [place] NASAL 1 spray QAM PALAK Administration Gabapentin 300 mg 10/11/19 18:05 10/14/19 12:16 Neurontin PO 300 mg TID PALAK Administration Glucagon 1 mg 10/07/19 22:21 Glucagon For Inj IM PRN PRN Hypoglycemia Protocol Glucose 15 gm 10/07/19 22:21 Glutose 15 PO PRN PRN Hypoglycemia Protocol Heparin Sodium (Porcine) 5,000 units 10/07/19 22:05 10/14/19 05:55 Heparin Sodium SUB-Q 5,000 units Q8HR PALAK Administration Dextrose 1,000 mls @ 100 mls/hr 10/07/19 22:21 Dextrose 5% 1,000 Ml IVPB PRN PRN Hypoglycemia Protocol Insulin Aspart 5 units 10/12/19 08:00 10/14/19 12:12 Novolog SUB-Q 5 units TIDWM [facility]
[2019-10-14 17:19] LABS: Glucose Point of Care 157 (65-105)
[2019-10-14] MEDS: ACETAMINOPHEN 325 MG TABLET 650 MG PO ×2 (17:36→22:32)
[2019-10-14] MEDS: metFORMIN HCL XR 500 MG TAB.SR.24H 1000 MG PO (17:36)
[2019-10-14] MEDS: QUEtiapine FUMARATE 25 MG TABLET PO (21:00)
[2019-10-14] MEDS: INSULIN GLARGINE (*BKC) 100 UNITS/ML 60 UNITS SUB-Q (21:00)
[2019-10-14] MEDS: PHENYTOIN SODIUM 100 MG CAP 300 MG PO (21:00)
[2019-10-14 22:00] VITALS: BP 170/84; PULSE 99; RESP 18; TEMP 36.6; O2SAT 90
[2019-10-14 22:43] LABS: Glucose Point of Care 207 (65-105)
[2019-10-15 05:08] LABS: Basophils Absolute Auto 0.1 K/mm3 (0.0-0.1); Basophils Percent Auto 0.8 % (0.2-1.2); Eosinophils Absolute Auto 0.2 K/mm3 (0-0.3); Eosinophils Percent Auto 2.7 % (0-4.4); Hematocrit 32.5 % (42.0-52.0); Hemoglobin 11.1 g/dL (14.0-18.0); Immature Granulocyte Absolute 0.17 K/mm3 (0.00-0.031); Immature Granulocyte Percent A 1.9 % (0-0.5); Lymphocytes Absolute Auto 1.77 K/mm3 (0.9-3.2); Lymphocytes Percent Auto 19.8 % (18.3-44.2); Mean Corpuscular HGB Conc 34.2 g/dl (32-36); Mean Corpuscular Volume 96.7 fl (80-100); Mean Platelet Volume 9.6 fl (7.4-10.4); Monocytes Absolute Auto 1.2 K/mm3 (0.1-0.6); Monocytes Percent Auto 13.2 % (2.6-8.5); Neutrophils Absolute Auto 5.5 K/mm3 (1.3-6.7); Neutrophils Percent Auto 61.6 % (45.5-73.1); Platelet Count Result 246 k/mm3 (150-375); Red Blood Count 3.36 M/mm3 (4.6-6.20)
[2019-10-15 05:26] LABS: Anion Gap 6 mmol/L (8-16); Blood Urea Nitrogen 21 mg/dL (9-20); Calcium 8.2 mg/dL (8.4-10.2); Carbon Dioxide 22 mmol/L (22-30); Chloride 103 mmol/L (98-107); Estimated CRCL calculation 69 ml/min; Estimated Glomerular Filt Rate > 60; Glucose 163 mg/dL (75-110); Potassium 4.7 mmol/L (3.4-5.0); Sodium 131 mmol/L (137-145)
[2019-10-15 06:00] VITALS: BP 142/72; PULSE 89; RESP 18; TEMP 36.8; O2SAT 95
[2019-10-15] MEDS: LEVOTHYROXINE SODIUM 50 MCG TABLET PO (06:00)
[2019-10-15] MEDS: HEPARIN SODIUM 5,000 UNITS/ML VIAL 5000 UNITS SUB-Q ×3 (06:00→21:32)
[2019-10-15 06:57] LABS: Glucose Point of Care 159 (65-105)
[2019-10-15] MEDS: INSULIN ASPART (*BKC) 100 UNITS/ML SUB-Q ×3 (07:17→18:04)
[2019-10-15] MEDS: FLUTICASONE PROPIONATE 0.05% NA SPR 16 GM BTL (*BKC) 1 SPRAY NASAL (08:53)
[2019-10-15] MEDS: GABAPENTIN 300 MG CAPSULE PO ×3 (08:54→16:50)
[2019-10-15] MEDS: PHENYTOIN SODIUM 100 MG CAP 200 MG PO (08:54)
[2019-10-15] MEDS: VALSARTAN 160 MG TABLET 320 MG PO (08:55)
[2019-10-15] MEDS: TAMSULOSIN HCL 0.4 MG CAPSULE PO (08:55)
[2019-10-15] MEDS: SENNA/DOCUSATE SODIUM TABLET 1 TAB PO ×2 (08:55→16:50)
[2019-10-15] MEDS: lisinopriL 10 MG TABLET PO (08:55)
[2019-10-15] MEDS: ATORVASTATIN 40 MG TABLET PO (08:55)
[2019-10-15] MEDS: ASPIRIN 81 MG CHEWABLE TABLET PO (08:55)
[2019-10-15] MEDS: amLODIPine BESYLATE 5 MG TABLET 10 MG PO (08:55)
[2019-10-15 11:45] LABS: Glucose Point of Care 204 (65-105)
[2019-10-15 14:00] VITALS: BP 129/63; PULSE 93; RESP 18; TEMP 36.7; O2SAT 94
[2019-10-15] MEDS: ACETAMINOPHEN 325 MG TABLET 650 MG PO ×2 (14:06→21:35)
[2019-10-15] MEDS: metFORMIN HCL XR 500 MG TAB.SR.24H 1000 MG PO (16:50)
[2019-10-15 17:06] LABS: Glucose Point of Care 197 (65-105)
[2019-10-15] MEDS: PHENYTOIN SODIUM 100 MG CAP 300 MG PO (21:31)
[2019-10-15] MEDS: QUEtiapine FUMARATE 25 MG TABLET PO (21:32)
[2019-10-15 21:37] LABS: Glucose Point of Care 172 (65-105)
[2019-10-15] MEDS: INSULIN GLARGINE (*BKC) 100 UNITS/ML 60 UNITS SUB-Q (21:37)
[2019-10-15 22:00] VITALS: BP 149/73; PULSE 93; RESP 20; TEMP 36.5; O2SAT 93
[2019-10-16] MEDS: ACETAMINOPHEN 325 MG TABLET 650 MG PO (04:21)
[2019-10-16] MEDS: MECLIZINE HCL 25 MG TABLET PO (04:32)
[2019-10-16] MEDS: HEPARIN SODIUM 5,000 UNITS/ML VIAL 5000 UNITS SUB-Q ×2 (05:11→14:55)
[2019-10-16] MEDS: LEVOTHYROXINE SODIUM 50 MCG TABLET PO (05:11)
[2019-10-16 05:45] VITALS: BP 148/77; PULSE 89; RESP 22; TEMP 36.5; O2SAT 94
[2019-10-16 06:52] LABS: Glucose Point of Care 132 (65-105)
[2019-10-16] MEDS: FLUTICASONE PROPIONATE 0.05% NA SPR 16 GM BTL (*BKC) 1 SPRAY NASAL (08:32)
[2019-10-16] MEDS: polyethylene glycoL 3350 17 GM POWD.PACK PO (08:33)
[2019-10-16] MEDS: GABAPENTIN 300 MG CAPSULE PO ×2 (08:33→12:20)
[2019-10-16] MEDS: TAMSULOSIN HCL 0.4 MG CAPSULE PO (08:33)
[2019-10-16] MEDS: ATORVASTATIN 40 MG TABLET PO (08:33)
[2019-10-16] MEDS: PHENYTOIN SODIUM 100 MG CAP 200 MG PO (08:33)
[2019-10-16] MEDS: ASPIRIN 81 MG CHEWABLE TABLET PO (08:33)
[2019-10-16] MEDS: amLODIPine BESYLATE 5 MG TABLET 10 MG PO (08:34)
[2019-10-16] MEDS: SENNA/DOCUSATE SODIUM TABLET 1 TAB PO ×2 (08:34→17:20)
[2019-10-16] MEDS: lisinopriL 10 MG TABLET PO (08:34)
[2019-10-16] MEDS: INSULIN ASPART (*BKC) 100 UNITS/ML SUB-Q ×3 (08:34→17:27)
[2019-10-16] MEDS: VALSARTAN 160 MG TABLET 320 MG PO (08:34)
[2019-10-16 11:58] LABS: Glucose Point of Care 212 (65-105)
--- NOTE | 2019-10-16 13:04 | WPDNEURORHBP ---
Subjective Date/time seen: 10/16/19 13:04 Interval history: this 69-year-old gentleman diabetic has suffered from the right hemispheric stroke in the area of the occipital lobe a right cerebral peduncle and also a right sided thalamus he is getting frustrated because of the hallucinations he is having particularly at night and I will increase Seroquel for the time being he mentioned to the nursing about his frustration and thinking about possibility of a suicide however he denies it to me and he says that he got frustrated and he does not have any intention for the suicide the patient's pain is still there which I believe is related to the Neurology day part type of pain related to the thalamic stroke This examiner does not believe the patient is actually suicidal in his behavior he gets frustrated with the hallucination he is having at that needs to be treated as it is I do not believe that he has a 3rd for the suicide at least at this time he denies he is improving overall and cooperating with the therapy have seen him in the gym for several minutes and he is making sense and making progress Review of Systems Review of Systems: All systems reviewed & are unremarkable except as noted in HPI and below Functional Status Transfers Ability Ability to Transfer In/Out of Chair: Total Assistance X 2 Exam Const: General: comfortable and no acute distress HENMT: General nose exam: Normal nares present Mouth: Yes moist mucous membranes Eyes: General: appearance normal, both eyes and all related structures Other: left-sided homonymous hemianopsia Neck: Neck: supple and no JVD Resp: Effort & Inspection: normal respiratory effort Auscultation: clear to auscultation bilaterally Cardio: Rate: regular rate Rhythm: regular rhythm GI: GI Palp: Yes Soft to palpation Auscultation: normal bowel sounds Skin: General skin exam: normal color and no rashes or lesions noted Neuro: Other: patient is a awake and alert well oriented has a right hemispheric deficit with a dense left-sided homonymous hemianopsia left-sided and neglect however clearly he is not suicidal and he denies it and he is not a threat for suicide at this time Extrem: General: normal to inspection Psych: Mental Status: mental status grossly normal Other: he is frustrated due to hallucinations he is having and to me he is not suicidal and does not have any intention to kill himself Objective Data Vital Signs Vital Signs: Vital Signs - 24 hr 10/15/19 14:00 10/15/19 22:00 10/16/19 05:45 Temperature 36.7 C 36.5 C 36.5 C Pulse Rate 93 93 89 Respiratory Rate 18 22 H Blood Pressure 129/63 149/73 H 148/77 H Pulse Oximetry 94 93 94 Intake/Output Intake/Output: Intake & Output 10/13/19 10/14/19 10/15/19 10/16/19 23:59 23:59 23:59 23:59 Intake Total 2160 960 870 430 Output Total 1525 5800 4950 3500 Balance 635 -4840 -4080 -3070 Meds/Results Medications: Active Medications Generic Name Dose Route Start Last Admin Trade Name Freq PRN Reason Stop Dose Admin Acetaminophen 650 mg 10/08/19 00:56 10/16/19 04:21 Tylenol Tablet PO 650 mg Q4H PRN Administration Headache Hydrocodone Bitart/Acetaminophen 1 tab 10/10/19 14:30 10/12/19 13:31 [place] 5-325 Mg PO 1 tab Q4H PRN Administration Pain Rated 4-6 Hydrocodone Bitart/Acetaminophen 2 tab 10/10/19 14:30 10/13/19 21:41 [place] 5-325 Mg PO 2 tab Q4H PRN Administration Pain Rated 7-10 Amlodipine Besylate 10 mg 10/08/19 09:00 10/16/19 08:34 Norvasc PO 10 mg DAILY PALAK Administration Aspirin 81 mg 10/08/19 08:00 10/16/19 08:33 Aspirin Chewable PO 81 mg DAILY@0800 PALAK Administration Atorvastatin Calcium 40 mg 10/08/19 09:00 10/16/19 08:33 Lipitor PO 40 mg DAILY PALAK Administration Dextrose 12.5 gm 10/07/19 22:21 Dextrose 50% Syringe IV PUSH PRN PRN Hypoglycemia Protocol Fluticasone Propionate 1 spray 10/10/19 09:00
[2019-10-16 14:00] VITALS: BP 118/60; PULSE 100; RESP 20; TEMP 36.9; O2SAT 93
[2019-10-16 14:05] VITALS: BMI 11.0
[2019-10-16] MEDS: GABAPENTIN 400 MG CAPSULE PO (17:20)
[2019-10-16] MEDS: metFORMIN HCL XR 500 MG TAB.SR.24H 1000 MG PO (17:21)
[2019-10-16 17:45] LABS: Glucose Point of Care 222 (65-105)
[2019-10-18 15:27] VITALS: BP 113/62; PULSE 89; RESP 20; TEMP 36.6; O2SAT 93
[2019-10-18] MEDS: INSULIN ASPART (*BKC) 100 UNITS/ML SUB-Q ×2 (18:39→18:40)
[2019-10-18] MEDS: SALINE 0.65% NAS SOLN 44 ML BTL 2 SPRAY NASAL (18:39)
[2019-10-18] MEDS: GABAPENTIN 400 MG CAPSULE PO (18:42)
[2019-10-18] MEDS: ACETAMINOPHEN 325 MG TABLET 650 MG PO (18:47)
[2019-10-18] MEDS: metFORMIN HCL XR 500 MG TAB.SR.24H 1000 MG PO (18:51)
[2019-10-18] MEDS: INSULIN GLARGINE (*BKC) 100 UNITS/ML 60 UNITS SUB-Q (20:40)
[2019-10-18] MEDS: PHENYTOIN SODIUM 100 MG CAP 300 MG PO (20:42)
[2019-10-18] MEDS: QUEtiapine FUMARATE 25 MG TABLET 50 MG PO (20:43)
[2019-10-18 21:25] LABS: Glucose Point of Care 294 (65-105)
[2019-10-18 22:00] VITALS: BP 153/84; PULSE 95; RESP 20; TEMP 36.6; O2SAT 95
[2019-10-19 05:44] LABS: Basophils Absolute Auto 0.1 K/mm3 (0.0-0.1); Basophils Percent Auto 0.6 % (0.2-1.2); Eosinophils Absolute Auto 0.4 K/mm3 (0-0.3); Eosinophils Percent Auto 3.3 % (0-4.4); Hematocrit 32.6 % (42.0-52.0); Hemoglobin 11.4 g/dL (14.0-18.0); Immature Granulocyte Absolute 0.33 K/mm3 (0.00-0.031); Immature Granulocyte Percent A 2.9 % (0-0.5); Lymphocytes Absolute Auto 1.89 K/mm3 (0.9-3.2); Lymphocytes Percent Auto 16.8 % (18.3-44.2); Mean Corpuscular Hemoglobin 33.4 pg (26-34); Mean Corpuscular Volume 95.6 fl (80-100); Mean Platelet Volume 9.1 fl (7.4-10.4); Monocytes Absolute Auto 1.4 K/mm3 (0.1-0.6); Neutrophils Absolute Auto 7.2 K/mm3 (1.3-6.7); Neutrophils Percent Auto 64.4 % (45.5-73.1); Platelet Count Result 318 k/mm3 (150-375); Red Blood Count 3.41 M/mm3 (4.6-6.20); White Blood Count 11.3 K/mm3 (4.5-10.0)
[2019-10-19 05:56] LABS: Anion Gap 6 mmol/L (8-16); Blood Urea Nitrogen 22 mg/dL (9-20); Calcium 7.8 mg/dL (8.4-10.2); Carbon Dioxide 23 mmol/L (22-30); Chloride 95 mmol/L (98-107); Estimated CRCL calculation 77 ml/min; Estimated Glomerular Filt Rate > 60; Glucose 189 mg/dL (75-110); Potassium 5.5 mmol/L (3.4-5.0); Sodium 124 mmol/L (137-145)
[2019-10-19 06:00] VITALS: BP 151/87; PULSE 97; RESP 18; TEMP 36.6; O2SAT 96
[2019-10-19 06:55] LABS: Glucose Point of Care 179 (65-105)
[2019-10-19] MEDS: INSULIN ASPART (*BKC) 100 UNITS/ML SUB-Q ×4 (09:57→17:46)
[2019-10-19] MEDS: GABAPENTIN 400 MG CAPSULE PO ×3 (09:58→17:47)
[2019-10-19] MEDS: FLUTICASONE PROPIONATE 0.05% NA SPR 16 GM BTL (*BKC) 1 SPRAY NASAL (09:58)
[2019-10-19 10:00] VITALS: PULSE 96; RESP 18; O2SAT 97
[2019-10-19] MEDS: PHENYTOIN SODIUM 100 MG CAP 200 MG PO (10:01)
[2019-10-19] MEDS: lisinopriL 10 MG TABLET PO (10:02)
[2019-10-19] MEDS: ACETAMINOPHEN 325 MG TABLET 650 MG PO ×2 (10:38→19:56)
[2019-10-19 11:50] LABS: Glucose Point of Care 231 (65-105)
[2019-10-19] MEDS: SODIUM POLYSTYRENE SULFONONATE 15 GM/60 ML BTL PO (12:39)
[2019-10-19 13:15] VITALS: BMI 11.0
[2019-10-19 14:00] VITALS: BP 155/75; PULSE 92; RESP 20; TEMP 36.8; O2SAT 95
--- NOTE | 2019-10-19 16:02 | PCPTNOTE ---
Abilio Grijalva was evaluated for a slide board on 10/19/2019 by this physical therapist assistant tennis coach. The slide board will resolve patient's mobility limitations and will be used for ADL's within the home. The patient can safely use the slide board .The slide board will resolve the patient?s mobility deficits, including decreased strength, endurance and impaired balance.
--- NOTE | 2019-10-19 17:05 | WPDNEURORHBP ---
Subjective Date/time seen: 10/19/19 17:0569 years old comes back to the rehab floor from the regular floor where he was transferred for the suicidal ideation during the hospitalization there he was maintained on the same medications and he carried the underlying diagnosis of left that is non dominant side hemiplegia. He was continued on all the medication except lisinopril 10 mg daily was withheld Review of Systems Review of Systems: All systems reviewed & are unremarkable except as noted in HPI and below Functional Status Transfers Ability Ability to Transfer In/Out of Chair: Total Assistance X 2 Exam Narrative: Exam Narrative: examination today revealed him to be awake alert following verbal commands appropriately but wanting to go home as soon as possible head normocephalic with no cranial bruit ear nose throat examination normal neck is supple with no cervical bruit no thyromegaly no lymphadenopathy heart regular with no murmur lungs clear to auscultation with no crepitations or rhonchi abdomen is soft nontender normal bowel sounds neurological examination revealed him to be awake alert oriented being on the rehab floor and being aware that he was transferred back from the regular floor is speech is of low volume not dysphasic no dysarthric has obvious left hemiparesis with hyperreflexia and upgoing plantar responses family member at the bedside the only desire he has to go home Objective Data Vital Signs Vital Signs: Vital Signs - 24 hr 10/18/19 22:00 10/19/19 06:00 10/19/19 10:00 Temperature 36.6 C 36.6 C Pulse Rate 95 97 96 Respiratory Rate 20 18 18 Blood Pressure 153/84 H 151/87 H Pulse Oximetry 95 96 97 10/19/19 14:00 Temperature 36.8 C Pulse Rate 92 Respiratory Rate 20 Blood Pressure 155/75 H Pulse Oximetry 95 Intake/Output Intake/Output: Intake & Output 10/16/19 10/17/19 10/18/19 10/19/19 23:59 23:59 23:59 23:59 Intake Total 910 240 880 Output Total 4200 1000 Balance -3290 240 -120 Meds/Results Medications: Active Medications Generic Name Dose Route Start Last Admin Trade Name Freq PRN Reason Stop Dose Admin Acetaminophen 650 mg 10/18/19 16:45 10/19/19 10:38 Tylenol Tablet PO 650 mg Q4H PRN Administration headache Hydrocodone Bitart/Acetaminophen 1 tab 10/18/19 16:45 [place] 5-325 Mg PO Q4H PRN Pain (Scale Score 4-6) Hydrocodone Bitart/Acetaminophen 2 tab 10/18/19 16:45 [place] 5-325 Mg PO Q4H PRN Pain (Scale Score 7-10) Dextrose 12.5 gm 10/18/19 16:48 Dextrose 50% Syringe IV PUSH PRN PRN Hypoglycemia Protocol Fluticasone Propionate 1 spray 10/19/19 09:00 10/19/19 09:58 Flonase 0.05% Nasal [place] NASAL 1 spray DAILY PALAK Administration Gabapentin 400 mg 10/18/19 17:00 10/19/19 12:33 Neurontin PO 400 mg TID PALAK Administration Glucagon 1 mg 10/18/19 16:48 Glucagon For Inj IM PRN PRN Hypoglycemia Protocol Glucose 15 gm 10/18/19 16:48 Glutose 15 PO PRN PRN Hypoglycemia Protocol Dextrose 1,000 mls @ 100 mls/hr 10/18/19 16:48 Dextrose 5% 1,000 Ml IVPB PRN PRN Hypoglycemia Protocol Insulin Aspart 2 - 5 units 10/18/19 17:00 10/19/19 12:35 Novolog SUB-Q 2 units TIDWM PALAK Administration Protocol Insulin Aspart 5 units 10/18/19 17:00 10/19/19 12:35 Novolog SUB-Q 5 units TIDWM PALAK Administration Insulin Glargine 60 units 10/18/19 21:00 10/18/19 20:40 Lantus SUB-Q 60 units HS PALAK Administration Lisinopril 10 mg 10/19/19 09:00 10/19/19 10:02 Prinivil PO 10 mg DAILY PALAK Administration Meclizine HCl 25 mg 10/18/19 16:45 Antivert PO QID PRN Dizziness Metformin HCl 1,000 mg 10/18/19 17:00 10/18/19 18:51 Glucophage Xr PO 1,000 mg Q24H PALAK Administration Phenytoin Sodium 200 mg 10/19/19 09:00 10/19/19 10:01 Dilantin [place] PO 200 mg QAM PALAK Admini
[2019-10-19 17:33] LABS: Glucose Point of Care 165 (65-105)
--- NOTE | 2019-10-19 18:31 | PM.IMHP ---
H&P: HPI History of Present Illness Date/Time: 10/19/19 18:31 Chief complaint: CVA Narrative: Abilio Grijalva is a 69 year old male initially admitted to [facility] status post CVA with left upper and lower extremity weakness however while in the [facility] patient became quite depressed and wanted to commit suicide patient was transferred to ICU and observed and was seen by crisis team and have and agreement the patient will not commit suicide, patient does remain clinically stable, yesterday patient potassium was 5.6 and was given 1 time dose of Kayexalate 15 mg p.o. times, today repeat potassium is 5.4, patient is clinically stable does not any complaint of chest pain shortness of breath palpitation or dizziness, patient does appear depressed. Review of Systems Review of Systems: All systems reviewed & are unremarkable except as noted in HPI and below PMFSH Past Medical History Medical History (Updated 10/16/19 @ 20:24 by Stacy White NP) BPH (benign prostatic hyperplasia) Diabetes mellitus type 2 in nonobese Hyperlipidemia Hypothyroidism Status post placement of implantable loop recorder left upper chest Social History Social History (Updated 10/16/19 @ 20:18 by Stacy White NP) Social History: the patient draw also so security sign I imagine that he is disabled. The patient is a full code. He does not have a durable power district attorney for healthcare. He has a son and a daughter. Patient used to work for [employer] in draws a pension from there is well. He he said that he smoked a little bit in the 1970s. He is . Has use any marijuana or illicit drugs. Smoking packs per day: 0.75 Smoking cigarettes per day: 15.0 Smoking status: Former smoker Tobacco type: cigarettes and pipe Second hand tobacco smoke exposure: Yes Smoking end date: 02/18/79 Alcohol intake: never Substance use: never Gender identity (if verbalized by the patient): Male Spiritual care concerns: No Meds Home Medications and Allergies Home Medications Medication Instructions Recorded Confirmed Type amlodipine 10 mg PO DAILY 10/07/19 10/18/19 History aspirin 81 mg PO DAILY 10/07/19 10/18/19 History atorvastatin 40 mg PO DAILY 10/07/19 10/18/19 History heparin (porcine) 5,000 unit SUBCUT Q8H 10/07/19 10/18/19 History levothyroxine 50 mcg PO DAILY 10/07/19 10/18/19 History phenytoin sodium extended 200 mg PO QAM 10/07/19 10/18/19 History phenytoin sodium extended 300 mg PO HS 10/07/19 10/18/19 History polyethylene glycol 3350 17 g PO DAILY PRN 10/07/19 10/16/19 History sennosides-docusate sodium [Senna 1 tab-cap PO BID 10/07/19 10/18/19 History with Docusate Sodium] tamsulosin 0.4 mg PO DAILY 10/07/19 10/18/19 History valsartan 320 mg PO DAILY 10/07/19 10/18/19 History Januvia 100 mg PO DAILY 10/16/19 10/18/19 History Lantus U-100 Insulin 60 unit SUBCUT HS 10/16/19 10/18/19 History acetaminophen 650 mg PO Q4H PRN 10/16/19 10/18/19 History fluticasone propionate [Flonase 1 spray INTRANASAL DAILY 10/16/19 10/18/19 History Allergy Relief] gabapentin 400 mg PO TID 10/16/19 10/18/19 History hydrocodone-acetaminophen 1 tablet PO Q4H PRN 10/16/19 10/18/19 History hydrocodone-acetaminophen 2 tablet PO Q4H PRN 10/16/19 10/18/19 History insulin aspart U-100 5 unit SUBCUT TID 10/16/19 10/18/19 History lisinopril 10 mg PO DAILY 10/16/19 10/18/19 History meclizine 25 mg PO QID PRN 10/16/19 10/18/19 History metformin 1,000 mg PO DAILY 10/16/19 10/18/19 History quetiapine [Seroquel] 50 mg PO HS 10/16/19 10/18/19 History sodium chloride [[place] Nasal] 2 spray INTRANASAL QID PRN 10/16/19 10/18/19 History sulfamethoxazole-trimethoprim 1 tablet PO Q12H 10/16/19 10/18/19 History Allergies Allergy/AdvReac Type Severity Reaction Status Date / Time vancomycin Allergy Unknown Verified 10/07/19 22:24 Vital Signs Vital Signs - 24 hr 10/18/19 22:00 10/19/19 06:00 10/19/19 10:00 Temperature 97.8 F 97.9 F Pulse Rate 95 97 96
[2019-10-19] MEDS: QUEtiapine FUMARATE 25 MG TABLET 50 MG PO (20:00)
[2019-10-19] MEDS: PHENYTOIN SODIUM 100 MG CAP 300 MG PO (20:00)
[2019-10-19] MEDS: MECLIZINE HCL 25 MG TABLET PO (20:47)
[2019-10-19] MEDS: metFORMIN HCL XR 500 MG TAB.SR.24H 1000 MG PO (20:47)
[2019-10-19] MEDS: INSULIN GLARGINE (*BKC) 100 UNITS/ML 60 UNITS SUB-Q (20:49)
[2019-10-19 21:14] LABS: Glucose Point of Care 194 (65-105)
[2019-10-19 22:00] VITALS: BP 146/72; PULSE 94; RESP 20; TEMP 36.4; O2SAT 97
[2019-10-20 05:14] LABS: Hematocrit 31.8 % (42.0-52.0); Hemoglobin 11.2 g/dL (14.0-18.0); Mean Corpuscular HGB Conc 35.2 g/dl (32-36); Mean Corpuscular Hemoglobin 33.5 pg (26-34); Mean Corpuscular Volume 95.2 fl (80-100); Mean Platelet Volume 9.2 fl (7.4-10.4); Platelet Count Result 303 k/mm3 (150-375); Red Blood Count 3.34 M/mm3 (4.6-6.20); Red Cell Distribution Width 12.8 % (11.5-14.5); White Blood Count 10.3 K/mm3 (4.5-10.0)
[2019-10-20 05:25] LABS: Anion Gap 8 mmol/L (8-16); Blood Urea Nitrogen 18 mg/dL (9-20); Calcium 7.9 mg/dL (8.4-10.2); Carbon Dioxide 21 mmol/L (22-30); Chloride 94 mmol/L (98-107); Estimated CRCL calculation 69 ml/min; Estimated Glomerular Filt Rate > 60; Glucose 186 mg/dL (75-110); Potassium 4.7 mmol/L (3.4-5.0); Sodium 123 mmol/L (137-145)
[2019-10-20 05:26] LABS: Cholesterol 137 mg/dL (0-200); HDL Direct 35 mg/dL; Triglycerides 264 mg/dL (<150)
[2019-10-20 05:36] LABS: LDL Cholesterol Direct 62 mg/dL
[2019-10-20 06:00] VITALS: BP 150/83; PULSE 85; RESP 20; TEMP 36.4; O2SAT 93
[2019-10-20 06:26] LABS: Glucose Point of Care 199 (65-105)
[2019-10-20] MEDS: lisinopriL 10 MG TABLET PO (10:00)
[2019-10-20] MEDS: GABAPENTIN 400 MG CAPSULE PO ×3 (10:36→17:00)
[2019-10-20] MEDS: FLUTICASONE PROPIONATE 0.05% NA SPR 16 GM BTL (*BKC) 1 SPRAY NASAL (10:36)
[2019-10-20] MEDS: SENNA/DOCUSATE SODIUM TABLET 1 TAB PO ×2 (10:36→17:00)
[2019-10-20] MEDS: PHENYTOIN SODIUM 100 MG CAP 200 MG PO (10:37)
[2019-10-20] MEDS: INSULIN ASPART (*BKC) 100 UNITS/ML SUB-Q ×3 (10:48→17:05)
--- NOTE | 2019-10-20 11:23 | PCPTNOTE ---
Addendum entered by Rebeka Barclay PTA 10/20/19 13:57: Recommending swing away arm rests to facilitate independence of slide board transfers. Original Note: Rebeka Barclay PTA completed an inpatient rehab wheelchair evaluation on Abilio Grijalva on 10/20/2019. The patient is unable to safely and independently ambulate household distances due to their current impairments. Their diagnosis is CVA and their impairments include decreased strength, decreased endurance, decreased range of motion, decreased balance, lower extremity weakness, and ataxia. Abilio's weight bearing status is weight-bearing as tolerated on the bilateral lower legs. The patient demonstrates significant functional mobility limitations that impair their ability to participate in mobility-related activities of daily living (MRADLs), including toileting, feeding, dressing, grooming, and bathing in the customary locations in the home. These limitations cannot be sufficiently resolved by the use of an appropriately fitted cane or walker. It is recommended that the patient utilize a wheelchair for functional mobility within the home in order to facilitate optimal safety, independence and participation in all MRADL's and adequately access their home environment on a regular basis. The patient's home provides adequate access between rooms, maneuvering space, and surfaces to accommodate the recommended wheelchair. The use of a wheelchair for functional mobility is strongly recommended and the patient is receptive to using the wheelchair. The use of this wheelchair will significantly improve the patient's ability to participate in MRADLS and the patient will use it on a regular basis in the home. This will facilitate optimal safety, independence, and participation. The patient has demonstrated sufficient physical and mental capabilities needed to safely propel a manual wheelchair that is provided in the home during a typical day. Recommended Wheelchair Frame: standard Recommended Wheelchair Size: [id number] patient's anatomical hip width of 16 inches, upper leg length of 18 inches and a wheelchair height from floor no more than 16 inches due to patient's height of 5 feet 3 inches according to patient. Recommended Wheelchair Cushion:standard Wheelchair Leg Recommendations: elevating swing away leg rests -Elevating legrests are recommended because the patient has significant edema of the lower extremities that requires an elevating legrest -Anti-tippers are recommended due to patient demonstrating increased risk for falls. They would benefit from anti-tippers with added safety and stabilization. Rebeka Barclay CLOTH GRADER SUPERVISOR 10-20-2019 Evaluating Therapist Date I agree with and certify that the above recommendation is medically necessary. Referring Physician Date I agree with and certify that the above recommendation is medically necessary. Referring Physician Date
[2019-10-20 12:04] LABS: Glucose Point of Care 181 (65-105)
[2019-10-20] MEDS: ACETAMINOPHEN 325 MG TABLET 650 MG PO (13:41)
[2019-10-20 14:00] VITALS: BP 139/82; PULSE 92; RESP 20; TEMP 36.4; O2SAT 94
--- NOTE | 2019-10-20 14:15 | PCNFU ---
Nutrition Follow-Up Complete: Predicted suboptimal oral intake related to dysphagia as evidenced by patient requesting solid foods on minced and moist diet. Goal: Patient to consume 75% of meals/supplements or greater. Patient is meeting goal with 100% meal consumption. Pt current nutrition is Heart Healthy. Nutrition recommendation: Recommend DBCC with Heart Healthy tahir Last recorded weight is 76.2 kg. Bowel Motility: Labs Reviewed: Meds Noted: Additional Notes: Follow up in 5 days.
--- NOTE | 2019-10-20 14:17 | PCPTNOTE ---
Abilio Grijalva was evaluated for a hospital bed on 10-20-2019 by this physical therapist retail store assistant. The hospital bed will resolve patient's mobility limitations and assist with patient dependence .The patient's home can accommodate the hospital bed according to patient. The patient currently requires maximal to dependent assistance with bed mobility to safely perform. A semi electric hospital bed will assist to ensure optimal positioning of left side extremities due to weakness and facilitate independence and reduce childcare attendant burden.
--- NOTE | 2019-10-20 14:17 | PCNFU ---
Nutrition Follow-Up Complete: Predicted suboptimal oral intake related to dysphagia as evidenced by patient requesting solid foods on minced and moist diet. Goal: Patient to consume 75% of meals/supplements or greater. Patient is meeting goal with 100% meal consumption. No diet related concerns reported. Pt current nutrition is Heart Healthy. Nutrition recommendation: Recommend DBCC with Heart Healthy Last recorded weight is 76.2 kg. Recommend obtaining new weight Bowel Motility: last bowel movement reported on 10/20/19 Labs Reviewed: Hgb (11.2) Hct (31.8) Na (123) Glu (186) Triglycerides (264) Meds Noted: Lantus, Norvasc, Prinivil, Glucophage, Antivert, [place], Lipitor, Neurontin, Flomax, Miralax, Senna, Januvia, Dilantin Additional Notes: Skin: chest incision. Unable to see patient because of therapy session taking place. Will continue to monitor. Follow up in 7 days.
--- NOTE | 2019-10-20 14:30 | PCNSR ---
On 10/20/19, the student, Luciano Baptiste, provided care and [facility]. I have reviewed the student's documentation and agree with the findings.
--- NOTE | 2019-10-20 14:32 | WPDNEURORHBP ---
Subjective Date/time seen: 10/20/19 14:32 Interval history: this 69-year-old gentleman is here due to stroke which left him with significant left-sided faith plegia smoke almost however is making progress he has no more threatening to commit suicide is much more calm and is aches and pains around his left periarticular and head area is completely suppressed There is no nausea vomiting chest pain shortness of breath. Review of Systems Review of Systems: All systems reviewed & are unremarkable except as noted in HPI and below Functional Status Transfers Ability Ability to Transfer In/Out of Chair: Total Assistance X 2 Exam Const: General: comfortable and no acute distress HENMT: General nose exam: Normal nares present Mouth: Yes moist mucous membranes Eyes: General: appearance normal, both eyes and all related structures Neck: Neck: supple and no JVD Resp: Effort & Inspection: normal respiratory effort Auscultation: clear to auscultation bilaterally Cardio: Rate: regular rate Rhythm: regular rhythm GI: GI Palp: Yes Soft to palpation Auscultation: normal bowel sounds Urinary Catheter: Urinary Catheter: patent and draining Skin: General skin exam: normal color and no rashes or lesions noted Neuro: Other: He is awake alert well oriented time place and person not psychotic not thinking of suicide left hemiplegia slight improvement however still needing maximum assistance in the physical therapy Extrem: General: normal to inspection Psych: Mental Status: mental status grossly normal Objective Data Vital Signs Vital Signs: Vital Signs - 24 hr 10/19/19 22:00 10/20/19 06:00 Temperature 36.4 C 36.4 C L Pulse Rate 94 85 Respiratory Rate 20 20 Blood Pressure 146/72 H 150/83 H Pulse Oximetry 97 93 Intake/Output Intake/Output: Intake & Output 10/17/19 10/18/19 10/19/19 10/20/19 23:59 23:59 23:59 23:59 Intake Total 240 3120 240 Output Total 2450 1400 Balance 240 670 -1160 Meds/Results Medications: Active Medications Generic Name Dose Route Start Last Admin Trade Name Freq PRN Reason Stop Dose Admin Acetaminophen 650 mg 10/18/19 16:45 10/20/19 13:41 Tylenol Tablet PO 650 mg Q4H PRN Administration headache Hydrocodone Bitart/Acetaminophen 1 tab 10/18/19 16:45 [place] 5-325 Mg PO Q4H PRN Pain (Scale Score 4-6) Hydrocodone Bitart/Acetaminophen 2 tab 10/18/19 16:45 10/20/19 00:25 [place] 5-325 Mg PO 2 tab Q4H PRN Administration Pain (Scale Score 7-10) Dextrose 12.5 gm 10/18/19 16:48 Dextrose 50% Syringe IV PUSH PRN PRN Hypoglycemia Protocol Fluticasone Propionate 1 spray 10/19/19 09:00 10/20/19 10:36 Flonase 0.05% Nasal [place] NASAL 1 spray DAILY PALAK Administration Gabapentin 400 mg 10/18/19 17:00 10/20/19 13:42 Neurontin PO 400 mg TID PALAK Administration Glucagon 1 mg 10/18/19 16:48 Glucagon For Inj IM PRN PRN Hypoglycemia Protocol Glucose 15 gm 10/18/19 16:48 Glutose 15 PO PRN PRN Hypoglycemia Protocol Dextrose 1,000 mls @ 100 mls/hr 10/18/19 16:48 Dextrose 5% 1,000 Ml IVPB PRN PRN Hypoglycemia Protocol Insulin Aspart 2 - 5 units 10/18/19 17:00 10/20/19 11:59 Novolog SUB-Q Not Given TIDWM PALAK Protocol Insulin Aspart 5 units 10/18/19 17:00 10/20/19 11:59 Novolog SUB-Q 5 units TIDWM PALAK Administration Insulin Glargine 60 units 10/18/19 21:00 10/19/19 20:49 Lantus SUB-Q 60 units HS PALAK Administration Lisinopril 10 mg 10/19/19 09:00 10/20/19 10:00 Prinivil PO 10 mg DAILY PALAK Administration Meclizine HCl 25 mg 10/18/19 16:45 10/19/19 20:47 Antivert PO 25 mg QID PRN Administration Dizziness Metformin HCl 1,000 mg 10/18/19 17:00 10/19/19 20:47 Glucophage Xr PO 1,000 mg Q24H PALAK Administration Phenytoin Sodium 200 mg 10/19/19 09:00 10/20/19 10:37 [place]
[2019-10-20] MEDS: metFORMIN HCL XR 500 MG TAB.SR.24H 1000 MG PO (17:01)
--- NOTE | 2019-10-20 17:55 | PM.DS ---
DS: Admitting Diagnosis Admitting Diagnosis Admitting Diagnosis: CVA DS: Summary Time Spent with Patient Time attestation: Total time spent providing and/or coordinating discharge services: DS: Data Data Completed and Pending Labs on day of discharge: Labs from last 24 hours 10/20/19 10/20/19 10/20/19 11:57 06:24 04:55 WBC RBC Hgb Hct MCV MCH MCHC RDW Plt Count MPV Sodium Potassium Chloride Carbon Dioxide Anion Gap BUN Creatinine Estim Creat Clear Calc Estimated GFR Glucose POC Capillary Glucose 181 H 199 H Calcium Triglycerides 264 H Cholesterol 137 LDL Cholesterol Direct 62 HDL Direct 35 10/20/19 10/20/19 10/19/19 04:55 04:55 19:55 WBC 10.3 H RBC 3.34 L Hgb 11.2 L Hct 31.8 L MCV 95.2 MCH 33.5 MCHC 35.2 RDW 12.8 Plt Count 303 MPV 9.2 Sodium 123 L Potassium 4.7 Chloride 94 L Carbon Dioxide 21 L Anion Gap 8 BUN 18 Creatinine 0.90 Estim Creat Clear Calc 69 Estimated GFR > 60 Glucose 186 H POC Capillary Glucose 194 H Calcium 7.9 L Triglycerides Cholesterol LDL Cholesterol Direct HDL Direct Discharge Plan Discharge Consulting providers: Stacy White Patient Instructions: Heparin (By injection), Urinary Incontinence (GEN), Pain Management (DC), Stroke (DC) Follow-up/Referrals: Alejandro Diaz [Other] [facility] [Other] Discharge Medications: New (DME) custom manual wheelchair Qty: 1 RF: 0 No Action atorvastatin 40 mg Tablet 40 mg PO DAILY RF: 0 polyethylene glycol 3350 17 gram Powder In Packet 17 g PO DAILY PRN (Reason: Constipation) RF: 0 phenytoin sodium extended 300 mg Capsule 200 mg PO QAM RF: 0 sennosides-docusate sodium [Senna with Docusate Sodium] 8.6-50 mg Tablet 1 tab-cap PO BID RF: 0 phenytoin sodium extended 200 mg Capsule 300 mg PO HS RF: 0 tamsulosin 0.4 mg Capsule 0.4 mg PO DAILY RF: 0 amlodipine 10 mg Tablet 10 mg PO DAILY RF: 0 levothyroxine 50 mcg Tablet 50 mcg PO DAILY RF: 0 valsartan 320 mg Tablet 320 mg PO DAILY RF: 0 aspirin 81 mg Tablet,Chewable 81 mg PO DAILY RF: 0 heparin (porcine) 5,000 unit/mL Solution 5,000 unit SUBCUT Q8H RF: 0 acetaminophen 325 mg Tablet 650 mg PO Q4H PRN (Reason: headache) RF: 0 hydrocodone-acetaminophen 5-325 mg Tablet 1 tablet PO Q4H PRN (Reason: Pain (Scale Score 4-6)) RF: 0 hydrocodone-acetaminophen 5-325 mg Tablet 2 tablet PO Q4H PRN (Reason: Pain (Scale Score 7-10)) RF: 0 gabapentin 400 mg Capsule 400 mg PO TID RF: 0 meclizine 25 mg Tablet 25 mg PO QID PRN (Reason: Dizziness) RF: 0 metformin 1,000 mg Tablet 1,000 mg PO DAILY RF: 0 lisinopril 10 mg Tablet 10 mg PO DAILY RF: 0 Hold Instructions: Resume on 10/19/19. fluticasone propionate [Flonase Allergy Relief] 50 mcg/actuation [place],Suspension 1 spray INTRANASAL DAILY RF: 0 quetiapine [Seroquel] 50 mg Tablet 50 mg PO HS RF: 0 Januvia 100 mg Tablet 100 mg PO DAILY RF: 0 sodium chloride [[place] Nasal] 0.65 % Aerosol,[place] 2 spray INTRANASAL QID PRN (Reason: Congestion) RF: 0 sulfamethoxazole-trimethoprim 800-160 mg Tablet 1 tablet PO Q12H RF: 0 Lantus U-100 Insulin 100 unit/mL Solution 60 unit SUBCUT HS RF: 0 insulin aspart U-100 100 unit/mL Solution 5 unit SUBCUT TID RF: 0 Date of admission: 10/07/19 21:32 Primary Care Provider: Joe,Brendan Sepulveda Admitting Provider: Nakul Strong Attending physician on admission: Nakul Strong
[2019-10-20 19:17] LABS: Glucose Point of Care 172 (65-105)
[2019-10-20 20:16] LABS: Glucose Point of Care 167 (65-105)
[2019-10-20] MEDS: QUEtiapine FUMARATE 25 MG TABLET 50 MG PO (20:19)
[2019-10-20] MEDS: PHENYTOIN SODIUM 100 MG CAP 300 MG PO (20:19)
[2019-10-20] MEDS: INSULIN GLARGINE (*BKC) 100 UNITS/ML 60 UNITS SUB-Q (20:22)
[2019-10-20 22:00] VITALS: BP 119/72; PULSE 94; RESP 20; TEMP 36.6; O2SAT 96
[2019-10-21 05:05] LABS: Hematocrit 30.9 % (42.0-52.0); Mean Corpuscular HGB Conc 35.6 g/dl (32-36); Mean Corpuscular Hemoglobin 33.5 pg (26-34); Mean Corpuscular Volume 94.2 fl (80-100); Mean Platelet Volume 8.9 fl (7.4-10.4); Platelet Count Result 309 k/mm3 (150-375); Red Blood Count 3.28 M/mm3 (4.6-6.20); Red Cell Distribution Width 12.9 % (11.5-14.5); White Blood Count 11.3 K/mm3 (4.5-10.0)
[2019-10-21] MEDS: LEVOTHYROXINE SODIUM 50 MCG TABLET PO (05:15)
[2019-10-21] MEDS: HEPARIN SODIUM 5,000 UNITS/ML VIAL 5000 UNITS SUB-Q ×3 (05:16→20:35)
[2019-10-21 05:55] LABS: Anion Gap 8 mmol/L (8-16); Blood Urea Nitrogen 23 mg/dL (9-20); Carbon Dioxide 21 mmol/L (22-30); Chloride 91 mmol/L (98-107); Estimated CRCL calculation 69 ml/min; Estimated Glomerular Filt Rate > 60; Glucose 162 mg/dL (75-110); Potassium 4.5 mmol/L (3.4-5.0); Sodium 120 mmol/L (137-145)
[2019-10-21 06:00] VITALS: BP 148/70; PULSE 88; RESP 20; TEMP 36.4; O2SAT 96
[2019-10-21 06:29] LABS: Glucose Point of Care 130 (65-105)
[2019-10-21] MEDS: ASPIRIN 81 MG CHEWABLE TABLET PO (09:25)
[2019-10-21] MEDS: amLODIPine BESYLATE 5 MG TABLET 10 MG PO (09:26)
[2019-10-21] MEDS: GABAPENTIN 400 MG CAPSULE PO ×3 (09:27→17:33)
[2019-10-21] MEDS: SENNA/DOCUSATE SODIUM TABLET 1 TAB PO ×2 (09:27→17:31)
[2019-10-21] MEDS: ATORVASTATIN 40 MG TABLET PO (09:27)
[2019-10-21] MEDS: lisinopriL 10 MG TABLET PO (09:28)
[2019-10-21] MEDS: PHENYTOIN SODIUM 100 MG CAP 200 MG PO (09:28)
[2019-10-21] MEDS: TAMSULOSIN HCL 0.4 MG CAPSULE PO (09:28)
[2019-10-21] MEDS: SODIUM CHLORIDE 1 GM TABLET 2 GM PO ×3 (09:28→17:32)
[2019-10-21] MEDS: VALSARTAN 160 MG TABLET 320 MG PO (09:29)
[2019-10-21] MEDS: FLUTICASONE PROPIONATE 0.05% NA SPR 16 GM BTL (*BKC) 1 SPRAY NASAL (09:33)
[2019-10-21] MEDS: INSULIN ASPART (*BKC) 100 UNITS/ML SUB-Q ×4 (09:38→17:42)
[2019-10-21 12:24] LABS: Glucose Point of Care 202 (65-105)
[2019-10-21 14:00] VITALS: PULSE 90; RESP 20; TEMP 36.4; O2SAT 95
--- NOTE | 2019-10-21 14:37 | WPDNEURORHBP ---
Subjective Date/time seen: 10/21/19 14:37 Interval history: this 69-year-old gentleman is here because of significant stroke affecting the left side of his body and the left-sided visual field defect he has no more suicidal and is cooperating in the therapy I examined him in the gym in the presence of his daughter and his son-in-law and they also told me that the patient is not talking about the suicide and quite doing well surprisingly he has been hyponatremic however remains not encephalopathic and quite with it in spite of his sodium being 120 at this time I have requested nephrology consult for the same to see if they wish to continue with the sodium tablet or they want to do the we fluid restriction or else The patient denies any headache nausea vomiting chest pain shortness of breath fever chills or sore throat Review of Systems Review of Systems: All systems reviewed & are unremarkable except as noted in HPI and below Functional Status Transfers Ability Ability to Transfer In/Out of Chair: Total Assistance X 2 Exam Const: General: comfortable and no acute distress HENMT: General nose exam: Normal nares present Mouth: Yes moist mucous membranes Eyes: General: appearance normal, both eyes and all related structures Neck: Neck: supple and no JVD Resp: Effort & Inspection: normal respiratory effort Auscultation: clear to auscultation bilaterally Cardio: Rhythm: regular rhythm GI: GI Palp: Yes Soft to palpation Auscultation: normal bowel sounds Skin: General skin exam: normal color and no rashes or lesions noted Neuro: Other: patient is awake alert well oriented with left-sided visual field defect and left-sided almost hemiplegia Extrem: General: normal to inspection Psych: Mental Status: mental status grossly normal Objective Data Vital Signs Vital Signs: Vital Signs - 24 hr 10/20/19 22:00 10/21/19 06:00 Temperature 36.6 C 36.4 C Pulse Rate 94 88 Respiratory Rate 20 20 Blood Pressure 119/72 148/70 H Pulse Oximetry 96 96 Intake/Output Intake/Output: Intake & Output 10/18/19 10/19/19 10/20/19 10/21/19 23:59 23:59 23:59 23:59 Intake Total 240 3120 1120 1030 Output Total 2450 2600 700 Balance 240 670 -1480 330 Meds/Results Medications: Active Medications Generic Name Dose Route Start Last Admin Trade Name Freq PRN Reason Stop Dose Admin Acetaminophen 650 mg 10/18/19 16:45 10/20/19 13:41 Tylenol Tablet PO 650 mg Q4H PRN Administration headache Hydrocodone Bitart/Acetaminophen 1 tab 10/18/19 16:45 10/21/19 05:14 [place] 5-325 Mg PO 1 tab Q4H PRN Administration Pain (Scale Score 4-6) Hydrocodone Bitart/Acetaminophen 2 tab 10/18/19 16:45 10/20/19 00:25 [place] 5-325 Mg PO 2 tab Q4H PRN Administration Pain (Scale Score 7-10) Amlodipine Besylate 10 mg 10/21/19 09:00 10/21/19 09:26 Norvasc PO 10 mg QAM PALAK Administration Aspirin 81 mg 10/21/19 08:00 10/21/19 09:25 Aspirin Chewable PO 81 mg DAILY@0800 PALAK Administration Atorvastatin Calcium 40 mg 10/21/19 09:00 10/21/19 09:27 Lipitor PO 40 mg DAILY PALAK Administration Dextrose 12.5 gm 10/18/19 16:48 Dextrose 50% Syringe IV PUSH PRN PRN Hypoglycemia Protocol Fluticasone Propionate 1 spray 10/19/19 09:00 10/21/19 09:33 Flonase 0.05% Nasal [place] NASAL 1 spray DAILY PALAK Administration Gabapentin 400 mg 10/18/19 17:00 10/21/19 12:09 Neurontin PO 400 mg TID PALAK Administration Glucagon 1 mg 10/18/19 16:48 Glucagon For Inj IM PRN PRN Hypoglycemia Protocol Glucose 15 gm 10/18/19 16:48 Glutose 15 PO PRN PRN Hypoglycemia Protocol Heparin Sodium (Porcine) 5,000 units 10/21/19 06:00 10/21/19 05:16 Heparin Sodium SUB-Q 5,000 units Q8HR PALAK Administration Dextrose 1,000 mls @ 100 mls/hr 10/18/19 16:48 Dextrose 5% 1,000 Ml IVPB PRN PRN Hypoglycemia [place]
[2019-10-21] MEDS: metFORMIN HCL XR 500 MG TAB.SR.24H 1000 MG PO (17:32)
[2019-10-21] MEDS: ACETAMINOPHEN 325 MG TABLET 650 MG PO (17:34)
[2019-10-21 17:50] LABS: Glucose Point of Care 193 (65-105)
--- NOTE | 2019-10-21 19:02 | PM.CNNEP ---
Assessment and Plan Assessment and plan (1) Hyponatremia: Code(s): E87.1 - Hypo-osmolality and hyponatremia Status: Acute Assessment and Plan: the patient has hyponatremia. This is probably multifactorial. I think he is drinking a lot of fluid. He is making lots of urine which probably reflects his fluid intake. Possibly 1 of his medicines is making him thirsty such as the Paxil. Paxil can also cause hyponatremia. Normally one would be able to maintain a normal sodium level with this kind of fluid intake however the Paxil may make this capability less adequate and so the sodium level can drop. His large infarct could also cause hyponatremia and we will just have to work around this if that is the problem. Notably his sodium was mildly low before he started the Paxil. Other causes of sodium include cancer but there is no evidence of this right now. Pulmonary disease can do this as well. I would like to reduce his Paxil dose if okay with Dr. Spencer. I will also fluid restrict the patient to drink less fluid. And this may bring his sodium level back up. Also check urine and serum osmolality, TSH, cortisol, and serum protein electrophoresis to assess for other causes of hyponatremia (2) Hypothyroidism: Code(s): E03.9 - Hypothyroidism, unspecified Status: Chronic Assessment and Plan: Will check a TSH (3) Diabetes mellitus type 2 in nonobese: Code(s): E11.9 - Type 2 diabetes mellitus without complications Status: Chronic Assessment and Plan: he is on medication for this (4) Hypertension: Code(s): I10 - Essential (primary) hypertension Status: Chronic Assessment and Plan: blood pressure is under good control. This might need some fine tuning. (5) Stroke: Code(s): I63.9 - Cerebral infarction, unspecified Status: Chronic Assessment and Plan: He is getting physical therapy and occupational therapy. History of Present Illness Reason for Consult Consult date: 10/21/19 Chief Complaint Chief complaint: CVA History of Present Illness Narrative: Abilio is a very pleasant 69-year-old gentleman who has multiple medical problems including diabetes, hyperlipidemia, hypothyroidism, BPH, stroke involving left body, and now hyponatremia. The patient's issue started in mid September with left-sided weakness. He went to [facility] and they diagnosed a stroke. He was unable to received tissue plasminogen activator. He was eventually transferred to [facility] for rehabilitation. He did have some suicidal ideation so he was transferred to ICU for suicide precautions for a while. He was then started on Paxil and his mood improved. He was transferred to rehab. On admission to [place] his sodium was 135. This gradually decreased with time to its current level of 120. The patient says that he is very thirsty. He does not think he is drinking a whole lot of water, however it looks like his urinary output has been very high, anywhere from 8322-5120 cc per day. He does have hypothyroidism and is on thyroid Supplements. He has no history of cancer. No history of lung disease that he knows of either. He is not on a diuretic and is not taking any opiates. Review of Systems Constitutional: Constitutional: Reports no additional constitutional complaints Eyes: Eyes: Reports no additional eye complaints ENT: Reports system reviewed and no additional complaints, except as documented Cardiovascular: Cardiovascular: Reports no additional cardiovascular complaints Respiratory: Respiratory: Reports no additional respiratory complaints Gastrointestinal: Gastrointestinal: Reports no additional gastrointestinal complaints Genitourinary: Genitourinary: Reports no additional male genitourinary complaints Musculoskeletal: Musculoskeletal: Reports no additional musculoskeletal complaints [place]
[2019-10-21 19:36] LABS: Cortisol Random 8.47 ug/dL
[2019-10-21] MEDS: PHENYTOIN SODIUM 100 MG CAP 300 MG PO (20:36)
[2019-10-21] MEDS: QUEtiapine FUMARATE 25 MG TABLET 50 MG PO (20:36)
[2019-10-21] MEDS: INSULIN GLARGINE (*BKC) 100 UNITS/ML 60 UNITS SUB-Q (21:06)
[2019-10-21 21:15] LABS: Glucose Point of Care 163 (65-105)
[2019-10-21 21:50] LABS: Sodium 121 mmol/L (137-145)
[2019-10-21 22:00] VITALS: BP 125/62; PULSE 94; RESP 18; TEMP 36.2; O2SAT 96
[2019-10-22 05:25] LABS: Hematocrit 31.7 % (42.0-52.0); Hemoglobin 11.1 g/dL (14.0-18.0); Mean Corpuscular Hemoglobin 33.3 pg (26-34); Mean Corpuscular Volume 95.2 fl (80-100); Mean Platelet Volume 9.1 fl (7.4-10.4); Platelet Count Result 303 k/mm3 (150-375); Red Blood Count 3.33 M/mm3 (4.6-6.20); Red Cell Distribution Width 13.2 % (11.5-14.5); White Blood Count 9.2 K/mm3 (4.5-10.0)
[2019-10-22 05:40] LABS: Anion Gap 7 mmol/L (8-16); Blood Urea Nitrogen 22 mg/dL (9-20); Calcium 8.1 mg/dL (8.4-10.2); Carbon Dioxide 23 mmol/L (22-30); Chloride 96 mmol/L (98-107); Estimated CRCL calculation 69 ml/min; Estimated Glomerular Filt Rate > 60; Glucose 139 mg/dL (75-110); Potassium 4.7 mmol/L (3.4-5.0); Sodium 126 mmol/L (137-145)
[2019-10-22] MEDS: HEPARIN SODIUM 5,000 UNITS/ML VIAL 5000 UNITS SUB-Q ×3 (05:58→20:29)
[2019-10-22] MEDS: LEVOTHYROXINE SODIUM 50 MCG TABLET PO (05:58)
[2019-10-22 06:00] VITALS: BP 124/60; PULSE 82; RESP 18; TEMP 36.1; O2SAT 97
[2019-10-22 06:46] LABS: Glucose Point of Care 137 (65-105)
[2019-10-22] MEDS: ASPIRIN 81 MG CHEWABLE TABLET PO (08:56)
[2019-10-22] MEDS: INSULIN ASPART (*BKC) 100 UNITS/ML SUB-Q ×3 (08:58→17:50)
[2019-10-22] MEDS: amLODIPine BESYLATE 5 MG TABLET 10 MG PO (08:59)
[2019-10-22] MEDS: ATORVASTATIN 40 MG TABLET PO (09:00)
[2019-10-22] MEDS: GABAPENTIN 400 MG CAPSULE PO ×3 (09:02→17:51)
[2019-10-22] MEDS: SENNA/DOCUSATE SODIUM TABLET 1 TAB PO ×2 (09:02→17:51)
[2019-10-22] MEDS: FLUTICASONE PROPIONATE 0.05% NA SPR 16 GM BTL (*BKC) 1 SPRAY NASAL (09:02)
[2019-10-22] MEDS: lisinopriL 10 MG TABLET PO (09:03)
[2019-10-22] MEDS: PARoxetine 10 MG TABLET PO (09:03)
[2019-10-22] MEDS: VALSARTAN 160 MG TABLET 320 MG PO (09:04)
[2019-10-22] MEDS: SODIUM CHLORIDE 1 GM TABLET 2 GM PO ×3 (09:04→17:46)
[2019-10-22] MEDS: TAMSULOSIN HCL 0.4 MG CAPSULE PO (09:04)
[2019-10-22] MEDS: PHENYTOIN SODIUM 100 MG CAP 200 MG PO (09:04)
[2019-10-22 11:00] VITALS: BP 123/65; PULSE 96; O2SAT 92
[2019-10-22 12:00] LABS: Glucose Point of Care 194 (65-105)
[2019-10-22 13:02] VITALS: BMI 10.0
[2019-10-22 14:00] VITALS: BP 138/72; PULSE 90; RESP 18; TEMP 36.6; O2SAT 97
[2019-10-22 16:31] LABS: Sodium 126 mmol/L (137-145)
[2019-10-22 17:08] LABS: Glucose Point of Care 194 (65-105)
[2019-10-22] MEDS: metFORMIN HCL XR 500 MG TAB.SR.24H 1000 MG PO (17:49)
--- NOTE | 2019-10-22 18:46 | PC.NURSE ---
LM for Dr. Conroy regarding Sodium level this afternoon; which remains at 126.
[2019-10-22 20:05] VITALS: BP 134/61; PULSE 101; RESP 20; TEMP 36.7; O2SAT 95
[2019-10-22] MEDS: PHENYTOIN SODIUM 100 MG CAP 300 MG PO (20:29)
[2019-10-22] MEDS: QUEtiapine FUMARATE 25 MG TABLET 50 MG PO (20:29)
[2019-10-22] MEDS: INSULIN GLARGINE (*BKC) 100 UNITS/ML 60 UNITS SUB-Q (20:36)
[2019-10-22 21:03] LABS: Glucose Point of Care 210 (65-105)
[2019-10-23 05:03] LABS: Hematocrit 30.9 % (42.0-52.0); Hemoglobin 10.8 g/dL (14.0-18.0); Mean Corpuscular Hemoglobin 34.2 pg (26-34); Mean Corpuscular Volume 97.8 fl (80-100); Mean Platelet Volume 9.2 fl (7.4-10.4); Platelet Count Result 299 k/mm3 (150-375); Red Blood Count 3.16 M/mm3 (4.6-6.20); Red Cell Distribution Width 13.2 % (11.5-14.5); White Blood Count 9.1 K/mm3 (4.5-10.0)
[2019-10-23 05:06] VITALS: BP 127/69; PULSE 91; RESP 18; TEMP 36.6; O2SAT 99
[2019-10-23 05:20] LABS: Albumin Level 3.3 g/dL (3.5-5.1); Anion Gap 5 mmol/L (8-16); Blood Urea Nitrogen 25 mg/dL (9-20); Calcium 8.4 mg/dL (8.4-10.2); Carbon Dioxide 23 mmol/L (22-30); Chloride 100 mmol/L (98-107); Estimated CRCL calculation 63 ml/min; Estimated Glomerular Filt Rate > 60; Glucose 128 mg/dL (75-110); Phosphorus 4.6 mg/dL (2.5-4.5); Potassium 5.3 mmol/L (3.4-5.0); Sodium 128 mmol/L (137-145)
[2019-10-23] MEDS: LEVOTHYROXINE SODIUM 50 MCG TABLET PO (05:54)
[2019-10-23] MEDS: HEPARIN SODIUM 5,000 UNITS/ML VIAL 5000 UNITS SUB-Q ×3 (05:54→20:35)
[2019-10-23 06:15] LABS: Glucose Point of Care 119 (65-105)
[2019-10-23] MEDS: FLUTICASONE PROPIONATE 0.05% NA SPR 16 GM BTL (*BKC) 1 SPRAY NASAL (09:35)
[2019-10-23] MEDS: ASPIRIN 81 MG CHEWABLE TABLET PO (09:35)
[2019-10-23] MEDS: INSULIN ASPART (*BKC) 100 UNITS/ML SUB-Q ×3 (09:36→18:03)
[2019-10-23] MEDS: amLODIPine BESYLATE 5 MG TABLET 10 MG PO (09:37)
[2019-10-23] MEDS: ATORVASTATIN 40 MG TABLET PO (09:38)
[2019-10-23] MEDS: GABAPENTIN 400 MG CAPSULE PO ×3 (09:39→18:02)
[2019-10-23] MEDS: lisinopriL 10 MG TABLET PO (09:39)
[2019-10-23] MEDS: PARoxetine 10 MG TABLET PO (09:39)
[2019-10-23] MEDS: SENNA/DOCUSATE SODIUM TABLET 1 TAB PO ×2 (09:39→18:02)
[2019-10-23] MEDS: TAMSULOSIN HCL 0.4 MG CAPSULE PO (09:40)
[2019-10-23] MEDS: SODIUM CHLORIDE 1 GM TABLET 2 GM PO ×3 (09:40→18:04)
[2019-10-23] MEDS: PHENYTOIN SODIUM 100 MG CAP 200 MG PO (09:40)
[2019-10-23] MEDS: VALSARTAN 160 MG TABLET 320 MG PO (09:41)
[2019-10-23 11:00] VITALS: BMI 10.0
[2019-10-23 12:42] LABS: Glucose Point of Care 156 (65-105)
[2019-10-23 14:00] VITALS: BP 135/56; PULSE 92; RESP 18; TEMP 36.3; O2SAT 97
--- NOTE | 2019-10-23 14:25 | WPDNEURORHBP ---
Subjective Date/time seen: 10/23/19 14:25 Interval history: this 69-year-old gentleman is here with rather large stroke left the left hemiplegia his getting better no suicidal ideation his hyponatremia is also better with recommendations from the network intelligence analyst noted and followed the Paxil has been reduced some of the urinary testing ordered by network intelligence analyst are pending the patient denies any headache nausea vomiting chest pain shortness of breath fever chills sore throat Review of Systems Review of Systems: All systems reviewed & are unremarkable except as noted in HPI and below Functional Status Transfers Ability Ability to Transfer In/Out of Chair: Total Assistance X 2 Exam Const: General: comfortable and no acute distress HENMT: General nose exam: Normal nares present Mouth: Yes moist mucous membranes Eyes: General: appearance normal, both eyes and all related structures Neck: Neck: supple and no JVD Resp: Effort & Inspection: normal respiratory effort Auscultation: clear to auscultation bilaterally Cardio: Rate: regular rate Rhythm: regular rhythm GI: GI Palp: Yes Soft to palpation Auscultation: normal bowel sounds Skin: General skin exam: normal color and no rashes or lesions noted Neuro: Other: patient is awake alert well oriented his left hemiplegia is very slow to improve however his visual field defect he is able to cope with it working with the speech is still needing assistance in all the activities of daily Extrem: General: normal to inspection Psych: Mental Status: mental status grossly normal Objective Data Vital Signs Vital Signs: Vital Signs - 24 hr 10/22/19 20:05 10/23/19 05:06 10/23/19 14:00 Temperature 36.7 C 36.6 C 36.3 C L Pulse Rate 101 H 91 92 Respiratory Rate 20 18 18 Blood Pressure 134/61 127/69 135/56 L Pulse Oximetry 95 99 97 Intake/Output Intake/Output: Intake & Output 10/20/19 10/21/19 10/22/19 10/23/19 23:59 23:59 23:59 23:59 Intake Total 1120 3470 960 680 Output Total 2600 2050 2450 800 Balance -1480 1420 -1490 -120 Meds/Results Medications: Active Medications Generic Name Dose Route Start Last Admin Trade Name Freq PRN Reason Stop Dose Admin Acetaminophen 650 mg 10/18/19 16:45 10/21/19 17:34 Tylenol Tablet PO 650 mg Q4H PRN Administration headache Hydrocodone Bitart/Acetaminophen 1 tab 10/18/19 16:45 10/21/19 05:14 [place] 5-325 Mg PO 1 tab Q4H PRN Administration Pain (Scale Score 4-6) Hydrocodone Bitart/Acetaminophen 2 tab 10/18/19 16:45 10/22/19 11:18 [place] 5-325 Mg PO 2 tab Q4H PRN Administration Pain (Scale Score 7-10) Amlodipine Besylate 10 mg 10/21/19 09:00 10/23/19 09:37 Norvasc PO 10 mg QAM PALAK Administration Aspirin 81 mg 10/21/19 08:00 10/23/19 09:35 Aspirin Chewable PO 81 mg DAILY@0800 PALAK Administration Atorvastatin Calcium 40 mg 10/21/19 09:00 10/23/19 09:38 Lipitor PO 40 mg DAILY PALAK Administration Dextrose 12.5 gm 10/18/19 16:48 Dextrose 50% Syringe IV PUSH PRN PRN Hypoglycemia Protocol Fluticasone Propionate 1 spray 10/19/19 09:00 10/23/19 09:35 Flonase 0.05% Nasal [place] NASAL 1 spray DAILY PALAK Administration Gabapentin 400 mg 10/18/19 17:00 10/23/19 12:59 Neurontin PO 400 mg TID PALAK Administration Glucagon 1 mg 10/18/19 16:48 Glucagon For Inj IM PRN PRN Hypoglycemia Protocol Glucose 15 gm 10/18/19 16:48 Glutose 15 PO PRN PRN Hypoglycemia Protocol Heparin Sodium (Porcine) 5,000 units 10/21/19 06:00 10/23/19 05:54 Heparin Sodium SUB-Q 5,000 units Q8HR PALAK Administration Dextrose 1,000 mls @ 100 mls/hr 10/18/19 16:48 Dextrose 5% 1,000 Ml IVPB PRN PRN Hypoglycemia Protocol Insulin Aspart 2 - 5 units 10/18/19 17:00 10/23/19 12:56 Novolog SUB-Q Not Given TIDWM PALAK Protocol Insulin Aspart 5 units 10/18/19 17:00 09
--- NOTE | 2019-10-23 16:24 | PM.PNNEP ---
Progress Note: A&P Assessment and Plan (1) Hyponatremia: Code(s): E87.1 - Hypo-osmolality and hyponatremia Status: Acute Assessment and Plan: the patient has hyponatremia. SPEP pending TSH is okay cortisol is a little low. Will get a Cortrosyn stim test. This is probably multifactorial. He had a large stroke. He is on Paxil. He is currently on fluid restriction alone. Paxil dose was reduced. Sodium level is gradually better. Another sodium level is pending. Will check another renal panel in the morning (2) Hypothyroidism: Code(s): E03.9 - Hypothyroidism, unspecified Status: Chronic Assessment and Plan: TSH is okay (3) Diabetes mellitus type 2 in nonobese: Code(s): E11.9 - Type 2 diabetes mellitus without complications Status: Chronic Assessment and Plan: he is on medication for this (4) Hypertension: Code(s): I10 - Essential (primary) hypertension Status: Chronic Assessment and Plan: blood pressure is well controlled he is on both lisinopril and valsartan. Will discontinue the Former. (5) Stroke: Code(s): I63.9 - Cerebral infarction, unspecified Status: Chronic Assessment and Plan: He is getting physical therapy and occupational therapy. Subjective Date/time seen: 10/23/19 16:24 Interval history: patient is alert. He is lying in bed comfortably. No shortness of breath. No swelling. Review of Systems Cardiovascular: Cardiovascular: Reports no additional cardiovascular complaints Respiratory: Respiratory: Reports no additional respiratory complaints Gastrointestinal: Gastrointestinal: Reports no additional gastrointestinal complaints Genitourinary: Genitourinary: Reports no additional male genitourinary complaints Exam Narrative: Exam Narrative: Well developed well-nourished gentleman lying in hospital bed in no acute distress Skin is warm and dry no rash. Lungs are clear Abdomen bowel sounds positive soft nontender Heart regular rate and rhythm no rub or gallop Extremities no edema Objective Data Vital Signs Vital Signs: Vital Signs - 24 hr 10/22/19 20:05 10/23/19 05:06 10/23/19 14:00 Temperature 36.7 C 36.6 C 36.3 C L Pulse Rate 101 H 91 92 Respiratory Rate 20 18 18 Blood Pressure 134/61 127/69 135/56 L Pulse Oximetry 95 99 97 Intake/Output Intake/Output: Intake & Output 10/20/19 10/21/19 10/22/19 10/23/19 23:59 23:59 23:59 23:59 Intake Total 1120 3470 960 680 Output Total 2600 2050 2450 800 Balance -1480 1420 -1490 -120 Meds/Results Medications: Active Medications Generic Name Dose Route Start Last Admin Trade Name Freq PRN Reason Stop Dose Admin Acetaminophen 650 mg 10/18/19 16:45 10/21/19 17:34 Tylenol Tablet PO 650 mg Q4H PRN Administration headache Hydrocodone Bitart/Acetaminophen 1 tab 10/18/19 16:45 10/21/19 05:14 [place] 5-325 Mg PO 1 tab Q4H PRN Administration Pain (Scale Score 4-6) Hydrocodone Bitart/Acetaminophen 2 tab 10/18/19 16:45 10/22/19 11:18 [place] 5-325 Mg PO 2 tab Q4H PRN Administration Pain (Scale Score 7-10) Amlodipine Besylate 10 mg 10/21/19 09:00 10/23/19 09:37 Norvasc PO 10 mg QAM PALAK Administration Aspirin 81 mg 10/21/19 08:00 10/23/19 09:35 Aspirin Chewable PO 81 mg DAILY@0800 PALAK Administration Atorvastatin Calcium 40 mg 10/21/19 09:00 10/23/19 09:38 Lipitor PO 40 mg DAILY PALAK Administration Dextrose 12.5 gm 10/18/19 16:48 Dextrose 50% Syringe IV PUSH PRN PRN Hypoglycemia Protocol Fluticasone Propionate 1 spray 10/19/19 09:00 10/23/19 09:35 Flonase 0.05% Nasal [place] NASAL 1 spray DAILY PALAK Administration Gabapentin 400 mg 10/18/19 17:00 10/23/19 12:59 Neurontin PO 400 mg TID PALAK Administration Glucagon 1 mg 10/18/19 16:48 Glucagon For Inj IM PRN
[2019-10-23 16:58] LABS: Sodium 130 mmol/L (137-145)
[2019-10-23 17:25] LABS: Glucose Point of Care 153 (65-105)
[2019-10-23] MEDS: COSYNTROPIN 0.25 MG/ML VIAL IV PUSH (18:01)
[2019-10-23] MEDS: metFORMIN HCL XR 500 MG TAB.SR.24H 1000 MG PO (18:03)
[2019-10-23] MEDS: PHENYTOIN SODIUM 100 MG CAP 300 MG PO (20:32)
[2019-10-23] MEDS: QUEtiapine FUMARATE 25 MG TABLET 50 MG PO (20:34)
[2019-10-23] MEDS: INSULIN GLARGINE (*BKC) 100 UNITS/ML 60 UNITS SUB-Q (20:39)
[2019-10-23 21:27] LABS: Glucose Point of Care 237 (65-105)
[2019-10-23 22:00] VITALS: BP 163/73; PULSE 89; RESP 20; TEMP 36.8; O2SAT 95
[2019-10-24 04:59] LABS: Hematocrit 29.6 % (42.0-52.0); Hemoglobin 10.2 g/dL (14.0-18.0); Mean Corpuscular HGB Conc 34.5 g/dl (32-36); Mean Corpuscular Hemoglobin 33.3 pg (26-34); Mean Corpuscular Volume 96.7 fl (80-100); Mean Platelet Volume 8.8 fl (7.4-10.4); Platelet Count Result 293 k/mm3 (150-375); Red Blood Count 3.06 M/mm3 (4.6-6.20); Red Cell Distribution Width 13.2 % (11.5-14.5); White Blood Count 7.8 K/mm3 (4.5-10.0)
[2019-10-24 05:25] LABS: Albumin Level 3.1 g/dL (3.5-5.1); Anion Gap 7 mmol/L (8-16); Blood Urea Nitrogen 24 mg/dL (9-20); Calcium 8.3 mg/dL (8.4-10.2); Carbon Dioxide 21 mmol/L (22-30); Chloride 102 mmol/L (98-107); Estimated CRCL calculation 69 ml/min; Estimated Glomerular Filt Rate > 60; Glucose 124 mg/dL (75-110); Phosphorus 4.5 mg/dL (2.5-4.5); Potassium 5.1 mmol/L (3.4-5.0); Sodium 130 mmol/L (137-145)
[2019-10-24 06:00] VITALS: BP 135/77; PULSE 83; RESP 20; TEMP 36.4; O2SAT 97
[2019-10-24] MEDS: HEPARIN SODIUM 5,000 UNITS/ML VIAL 5000 UNITS SUB-Q ×3 (06:12→20:16)
[2019-10-24] MEDS: LEVOTHYROXINE SODIUM 50 MCG TABLET PO (06:12)
[2019-10-24 06:50] LABS: Glucose Point of Care 110 (65-105)
[2019-10-24] MEDS: ASPIRIN 81 MG CHEWABLE TABLET PO (08:47)
[2019-10-24] MEDS: INSULIN ASPART (*BKC) 100 UNITS/ML SUB-Q ×3 (08:47→17:02)
[2019-10-24] MEDS: ATORVASTATIN 40 MG TABLET PO (08:48)
[2019-10-24] MEDS: SODIUM CHLORIDE 1 GM TABLET 2 GM PO ×3 (08:48→17:02)
[2019-10-24] MEDS: GABAPENTIN 400 MG CAPSULE PO ×3 (08:48→17:02)
[2019-10-24] MEDS: TAMSULOSIN HCL 0.4 MG CAPSULE PO (08:48)
[2019-10-24] MEDS: PARoxetine 10 MG TABLET PO (08:48)
[2019-10-24] MEDS: lisinopriL 10 MG TABLET PO (08:48)
[2019-10-24] MEDS: VALSARTAN 160 MG TABLET 320 MG PO (08:48)
[2019-10-24] MEDS: SENNA/DOCUSATE SODIUM TABLET 1 TAB PO ×2 (08:48→16:59)
[2019-10-24] MEDS: PHENYTOIN SODIUM 100 MG CAP 200 MG PO (08:49)
[2019-10-24] MEDS: FLUTICASONE PROPIONATE 0.05% NA SPR 16 GM BTL (*BKC) 1 SPRAY NASAL (08:49)
[2019-10-24] MEDS: amLODIPine BESYLATE 5 MG TABLET 10 MG PO (08:50)
--- NOTE | 2019-10-24 10:29 | PM.PNNEP ---
Progress Note: A&P Assessment and Plan (1) Hyponatremia: Code(s): E87.1 - Hypo-osmolality and hyponatremia Status: Acute Assessment and Plan: the patient has hyponatremia. SPEP pending TSH is okay Cortrosyn stim was normal. This is probably multifactorial. He had a large stroke. He is on Paxil. He is currently on fluid restriction alone. Sodium level is gradually better. Will enhance fluid restriction and increase the Paxil. Will check another renal panel in the morning (2) Hypothyroidism: Code(s): E03.9 - Hypothyroidism, unspecified Status: Chronic Assessment and Plan: TSH is okay (3) Diabetes mellitus type 2 in nonobese: Code(s): E11.9 - Type 2 diabetes mellitus without complications Status: Chronic Assessment and Plan: he is on medication for this (4) Hypertension: Code(s): I10 - Essential (primary) hypertension Status: Chronic Assessment and Plan: blood pressure is well controlled On Valsartan. (5) Stroke: Code(s): I63.9 - Cerebral infarction, unspecified Status: Chronic Assessment and Plan: He is getting physical therapy and occupational therapy. Subjective Date/time seen: 10/24/19 10:29 Interval history: patient is alert. just getting up to do occupational therapy. He gets worn out after therapy. No shortness of breath. No swelling. Exam Narrative: Exam Narrative: Well developed well-nourished gentleman in no acute distress Lungs are symmetric and clear Heart regular rate and rhythm no rub or gallop Abdomen bowel sounds positive soft nontender extremities show no cyanosis clubbing or edema Skin no rash Objective Data Vital Signs Vital Signs: Vital Signs - 24 hr 10/23/19 14:00 10/23/19 22:00 10/24/19 06:00 Temperature 36.3 C L 36.8 C 36.4 C L Pulse Rate 92 89 83 Respiratory Rate 18 20 20 Blood Pressure 135/56 L 163/73 H 135/77 Pulse Oximetry 97 95 97 Intake/Output Intake/Output: Intake & Output 10/21/19 10/22/19 10/23/19 10/24/19 23:59 23:59 23:59 23:59 Intake Total 3470 960 1400 240 Output Total 0 2450 3450 800 Balance 1420 -1490 -2049 -560 Meds/Results Medications: Active Medications Generic Name Dose Route Start Last Admin Trade Name Freq PRN Reason Stop Dose Admin Acetaminophen 650 mg 10/18/19 16:45 10/21/19 17:34 Tylenol Tablet PO 650 mg Q4H PRN Administration headache Hydrocodone Bitart/Acetaminophen 1 tab 10/18/19 16:45 10/21/19 05:14 [place] 5-325 Mg PO 1 tab Q4H PRN Administration Pain (Scale Score 4-6) Hydrocodone Bitart/Acetaminophen 2 tab 10/18/19 16:45 10/22/19 11:18 [place] 5-325 Mg PO 2 tab Q4H PRN Administration Pain (Scale Score 7-10) Amlodipine Besylate 10 mg 10/21/19 09:00 10/24/19 08:50 Norvasc PO 10 mg QAM PALAK Administration Aspirin 81 mg 10/21/19 08:00 10/24/19 08:47 Aspirin Chewable PO 81 mg DAILY@0800 PALAK Administration Atorvastatin Calcium 40 mg 10/21/19 09:00 10/24/19 08:48 Lipitor PO 40 mg DAILY PALAK Administration Dextrose 12.5 gm 10/18/19 16:48 Dextrose 50% Syringe IV PUSH PRN PRN Hypoglycemia Protocol Fluticasone Propionate 1 spray 10/19/19 09:00 10/24/19 08:49 Flonase 0.05% Nasal [place] NASAL 1 spray DAILY PALAK Administration Gabapentin 400 mg 10/18/19 17:00 10/24/19 08:48 Neurontin PO 400 mg TID PALAK Administration Glucagon 1 mg 10/18/19 16:48 Glucagon For Inj IM PRN PRN Hypoglycemia Protocol Glucose 15 gm 10/18/19 16:48 Glutose 15 PO PRN PRN Hypoglycemia Protocol Heparin Sodium (Porcine) 5,000 units 10/21/19 06:00 10/24/19 06:12 Heparin Sodium SUB-Q 5,000 units Q8HR PALAK Administration Dextrose 1,000 mls @ 100 mls/hr 10/18/19 16:48 Dextrose 5% 1,000 Ml IVPB PRN PRN Hypoglycemi
[2019-10-24 12:33] LABS: Glucose Point of Care 143 (65-105)
[2019-10-24 14:00] VITALS: BP 136/72; PULSE 84; RESP 18; TEMP 36.3; O2SAT 96
[2019-10-24] MEDS: metFORMIN HCL XR 500 MG TAB.SR.24H 1000 MG PO (17:03)
[2019-10-24 17:28] LABS: Glucose Point of Care 177 (65-105)
--- NOTE | 2019-10-24 18:16 | WPDNEURORHBP ---
Subjective Date/time seen: 10/24/19 18:16 Interval history: this 69-year-old gentleman is here because of having had rather significant stroke with left-sided hemiplegia his aches and pains are significantly better he is overall improving in his mental status however the left hemiplegia is very slow in response his still has a catheter for urinary retention and draining fairly well denies any headache nausea vomiting chest pain shortness of breath fever chills sore throat Review of Systems Review of Systems: All systems reviewed & are unremarkable except as noted in HPI and below Functional Status Transfers Ability Ability to Transfer In/Out of Chair: Total Assistance X 2 Exam Const: General: comfortable and no acute distress HENMT: General nose exam: Normal nares present Mouth: Yes moist mucous membranes Eyes: General: appearance normal, both eyes and all related structures Neck: Neck: supple and no JVD Resp: Effort & Inspection: normal respiratory effort Auscultation: clear to auscultation bilaterally Cardio: Rate: regular rate Rhythm: regular rhythm GI: GI Palp: Yes Soft to palpation Auscultation: normal bowel sounds Urinary Catheter: Urinary Catheter: patent and draining Skin: General skin exam: normal color and no rashes or lesions noted Neuro: Other: patient is awake and alert well oriented with left hemiplegia and left-sided visual field Extrem: General: normal to inspection Psych: Mental Status: mental status grossly normal Objective Data Vital Signs Vital Signs: Vital Signs - 24 hr 10/23/19 22:00 10/24/19 06:00 10/24/19 14:00 Temperature 36.8 C 36.4 C L 36.3 C L Pulse Rate 89 83 84 Respiratory Rate 20 20 18 Blood Pressure 163/73 H 135/77 136/72 Pulse Oximetry 95 97 96 Intake/Output Intake/Output: Intake & Output 10/21/19 10/22/19 10/23/19 10/24/19 23:59 23:59 23:59 23:59 Intake Total 3470 960 1400 960 Output Total 0 2450 3450 3600 Balance 5310 -2910 -6 -8576 Meds/Results Medications: Active Medications Generic Name Dose Route Start Last Admin Trade Name Freq PRN Reason Stop Dose Admin Acetaminophen 650 mg 10/18/19 16:45 10/21/19 17:34 Tylenol Tablet PO 650 mg Q4H PRN Administration headache Hydrocodone Bitart/Acetaminophen 1 tab 10/18/19 16:45 10/21/19 05:14 [place] 5-325 Mg PO 1 tab Q4H PRN Administration Pain (Scale Score 4-6) Hydrocodone Bitart/Acetaminophen 2 tab 10/18/19 16:45 10/22/19 11:18 [place] 5-325 Mg PO 2 tab Q4H PRN Administration Pain (Scale Score 7-10) Amlodipine Besylate 10 mg 10/21/19 09:00 10/24/19 08:50 Norvasc PO 10 mg QAM PALAK Administration Aspirin 81 mg 10/21/19 08:00 10/24/19 08:47 Aspirin Chewable PO 81 mg DAILY@0800 PALAK Administration Atorvastatin Calcium 40 mg 10/21/19 09:00 10/24/19 08:48 Lipitor PO 40 mg DAILY PALAK Administration Dextrose 12.5 gm 10/18/19 16:48 Dextrose 50% Syringe IV PUSH PRN PRN Hypoglycemia Protocol Fluticasone Propionate 1 spray 10/19/19 09:00 10/24/19 08:49 Flonase 0.05% Nasal [place] NASAL 1 spray DAILY PALAK Administration Gabapentin 400 mg 10/18/19 17:00 10/24/19 17:02 Neurontin PO 400 mg TID PALAK Administration Glucagon 1 mg 10/18/19 16:48 Glucagon For Inj IM PRN PRN Hypoglycemia Protocol Glucose 15 gm 10/18/19 16:48 Glutose 15 PO PRN PRN Hypoglycemia Protocol Heparin Sodium (Porcine) 5,000 units 10/21/19 06:00 10/24/19 14:57 Heparin Sodium SUB-Q 5,000 units Q8HR PALAK Administration Dextrose 1,000 mls @ 100 mls/hr 10/18/19 16:48 Dextrose 5% 1,000 Ml IVPB PRN PRN Hypoglycemia Protocol Insulin Aspart 2 - 5 units 10/18/19 17:00 10/24/19 17:02 Novolog SUB-Q Not Given TIDWM PALAK Protocol Insulin Aspart 5 units 10/18/19 17:00 10/24/19 17:02 Novolog SUB-Q 5 units TIDWM PALAK Administration
[2019-10-24] MEDS: INSULIN GLARGINE (*BKC) 100 UNITS/ML 60 UNITS SUB-Q (20:13)
[2019-10-24] MEDS: PHENYTOIN SODIUM 100 MG CAP 300 MG PO (20:14)
[2019-10-24] MEDS: QUEtiapine FUMARATE 25 MG TABLET 50 MG PO (20:15)
[2019-10-24 20:30] LABS: Glucose Point of Care 179 (65-105)
[2019-10-24 22:00] VITALS: BP 130/72; PULSE 96; RESP 18; TEMP 37.1; O2SAT 98
[2019-10-25 04:46] LABS: Hematocrit 32.9 % (42.0-52.0); Hemoglobin 11.1 g/dL (14.0-18.0); Mean Corpuscular HGB Conc 33.7 g/dl (32-36); Mean Corpuscular Hemoglobin 33.7 pg (26-34); Platelet Count Result 317 k/mm3 (150-375); Red Blood Count 3.29 M/mm3 (4.6-6.20); Red Cell Distribution Width 13.5 % (11.5-14.5); White Blood Count 8.4 K/mm3 (4.5-10.0)
[2019-10-25 04:59] LABS: Albumin Level 3.5 g/dL (3.5-5.1); Anion Gap 6 mmol/L (8-16); Blood Urea Nitrogen 25 mg/dL (9-20); Calcium 8.6 mg/dL (8.4-10.2); Carbon Dioxide 22 mmol/L (22-30); Chloride 105 mmol/L (98-107); Estimated CRCL calculation 77 ml/min; Estimated Glomerular Filt Rate > 60; Glucose 113 mg/dL (75-110); Phosphorus 4.5 mg/dL (2.5-4.5); Potassium 5.5 mmol/L (3.4-5.0); Sodium 133 mmol/L (137-145)
[2019-10-25 05:24] LABS: Osmolality, Urine 172 mOsm/kg (50-1200)
[2019-10-25] MEDS: HEPARIN SODIUM 5,000 UNITS/ML VIAL 5000 UNITS SUB-Q ×2 (05:33→14:00)
[2019-10-25] MEDS: LEVOTHYROXINE SODIUM 50 MCG TABLET PO (05:34)
[2019-10-25 06:00] VITALS: BP 145/73; PULSE 88; RESP 18; TEMP 36.1; O2SAT 97
[2019-10-25] MEDS: FLUTICASONE PROPIONATE 0.05% NA SPR 16 GM BTL (*BKC) 1 SPRAY NASAL (08:24)
[2019-10-25] MEDS: VALSARTAN 160 MG TABLET 320 MG PO (08:25)
[2019-10-25] MEDS: PHENYTOIN SODIUM 100 MG CAP 200 MG PO (08:25)
[2019-10-25] MEDS: GABAPENTIN 400 MG CAPSULE PO ×3 (08:25→17:20)
[2019-10-25] MEDS: ASPIRIN 81 MG CHEWABLE TABLET PO (08:25)
[2019-10-25] MEDS: SODIUM CHLORIDE 1 GM TABLET 2 GM PO ×3 (08:25→17:20)
[2019-10-25] MEDS: amLODIPine BESYLATE 5 MG TABLET 10 MG PO (08:26)
[2019-10-25] MEDS: ATORVASTATIN 40 MG TABLET PO (08:26)
[2019-10-25] MEDS: PARoxetine 20 MG TABLET PO (08:26)
[2019-10-25] MEDS: TAMSULOSIN HCL 0.4 MG CAPSULE PO (08:26)
[2019-10-25] MEDS: lisinopriL 10 MG TABLET PO (08:26)
[2019-10-25] MEDS: SENNA/DOCUSATE SODIUM TABLET 1 TAB PO (08:26)
[2019-10-25] MEDS: INSULIN ASPART (*BKC) 100 UNITS/ML SUB-Q ×4 (08:27→17:25)
[2019-10-25 12:03] LABS: Glucose Point of Care 178 (65-105)
[2019-10-25] MEDS: SODIUM POLYSTYRENE SULFONONATE 15 GM/60 ML BTL 30 GM PO (12:16)
[2019-10-25 14:00] VITALS: BP 124/76; PULSE 96; RESP 18; TEMP 36.4; O2SAT 97
[2019-10-25 16:46] LABS: Glucose Point of Care 239 (65-105)
[2019-10-25] MEDS: ACETAMINOPHEN 325 MG TABLET 650 MG PO (17:20)
[2019-10-25] MEDS: metFORMIN HCL XR 500 MG TAB.SR.24H 1000 MG PO (17:20)
[2019-10-25] MEDS: PHENYTOIN SODIUM 100 MG CAP 300 MG PO (21:25)
[2019-10-25] MEDS: QUEtiapine FUMARATE 25 MG TABLET 50 MG PO (21:25)
[2019-10-25] MEDS: INSULIN GLARGINE (*BKC) 100 UNITS/ML 60 UNITS SUB-Q (21:26)
[2019-10-25 22:00] VITALS: BP 144/69; PULSE 96; RESP 20; TEMP 37; O2SAT 97
[2019-10-25 22:01] LABS: Glucose Point of Care 202 (65-105)
[2019-10-26] MEDS: HEPARIN SODIUM 5,000 UNITS/ML VIAL 5000 UNITS SUB-Q ×4 (02:34→19:47)
[2019-10-26 04:50] LABS: Hematocrit 30.3 % (42.0-52.0); Hemoglobin 10.3 g/dL (14.0-18.0); Mean Corpuscular Hemoglobin 33.9 pg (26-34); Mean Corpuscular Volume 99.7 fl (80-100); Mean Platelet Volume 8.7 fl (7.4-10.4); Platelet Count Result 284 k/mm3 (150-375); Red Blood Count 3.04 M/mm3 (4.6-6.20); Red Cell Distribution Width 13.4 % (11.5-14.5); White Blood Count 7.8 K/mm3 (4.5-10.0)
[2019-10-26 05:02] LABS: Alanine Aminotransferase 44 U/L (4-50); Albumin Level 3.2 g/dL (3.5-5.1); Alkaline Phosphatase 88 U/L (38-126); Anion Gap 6 mmol/L (8-16); Aspartate Amino Transferase 42 U/L (17-59); Bilirubin,Total 0.2 mg/dL (0.2-1.3); Blood Urea Nitrogen 26 mg/dL (9-20); Calcium 7.8 mg/dL (8.4-10.2); Carbon Dioxide 22 mmol/L (22-30); Chloride 109 mmol/L (98-107); Estimated CRCL calculation 77 ml/min; Estimated Glomerular Filt Rate > 60; Glucose 127 mg/dL (75-110); Phosphorus 4.1 mg/dL (2.5-4.5); Potassium 4.4 mmol/L (3.4-5.0); Sodium 137 mmol/L (137-145)
[2019-10-26 06:00] VITALS: BP 145/72; PULSE 86; RESP 18; TEMP 37; O2SAT 95
[2019-10-26] MEDS: LEVOTHYROXINE SODIUM 50 MCG TABLET PO (06:24)
[2019-10-26 06:40] LABS: Glucose Point of Care 123 (65-105)
[2019-10-26] MEDS: ACETAMINOPHEN 325 MG TABLET 650 MG PO (08:51)
[2019-10-26] MEDS: ASPIRIN 81 MG CHEWABLE TABLET PO (08:52)
[2019-10-26] MEDS: FLUTICASONE PROPIONATE 0.05% NA SPR 16 GM BTL (*BKC) 1 SPRAY NASAL (08:52)
[2019-10-26] MEDS: INSULIN ASPART (*BKC) 100 UNITS/ML SUB-Q ×4 (08:54→17:33)
[2019-10-26] MEDS: GABAPENTIN 400 MG CAPSULE PO ×3 (08:56→17:30)
[2019-10-26] MEDS: amLODIPine BESYLATE 5 MG TABLET 10 MG PO (08:56)
[2019-10-26] MEDS: SENNA/DOCUSATE SODIUM TABLET 1 TAB PO ×2 (08:56→17:33)
[2019-10-26] MEDS: ATORVASTATIN 40 MG TABLET PO (08:56)
[2019-10-26] MEDS: TAMSULOSIN HCL 0.4 MG CAPSULE PO (08:57)
[2019-10-26] MEDS: VALSARTAN 160 MG TABLET 320 MG PO (08:57)
[2019-10-26] MEDS: PARoxetine 20 MG TABLET PO (08:57)
[2019-10-26] MEDS: SODIUM CHLORIDE 1 GM TABLET 2 GM PO ×3 (08:57→17:30)
[2019-10-26] MEDS: PHENYTOIN SODIUM 100 MG CAP 200 MG PO (08:57)
[2019-10-26] MEDS: lisinopriL 10 MG TABLET PO (08:57)
[2019-10-26 12:03] LABS: Glucose Point of Care 162 (65-105)
--- NOTE | 2019-10-26 12:18 | WPDNEURORHBP ---
Subjective Date/time seen: 10/26/19 12:18 Interval history: this 69-year-old gentleman is here after having had rather significant right hemispheric stroke which has left him with left-sided moderately severe hemiparesis and the bladder dysfunction urinary retention for which he has urinary catheter placed his aches and pains around his head and neck area fairly decently controlled he is not suicidal at all and cooperative with the therapy and happy with the care denies any headache nausea vomiting chest pain shortness of breath fever chills sore throat Review of Systems Review of Systems: All systems reviewed & are unremarkable except as noted in HPI and below Functional Status Transfers Ability Ability to Transfer In/Out of Chair: Total Assistance X 2 Exam Const: General: comfortable and no acute distress HENMT: General nose exam: Normal nares present Mouth: Yes moist mucous membranes Eyes: General: appearance normal, both eyes and all related structures Neck: Neck: supple and no JVD Resp: Effort & Inspection: normal respiratory effort Auscultation: clear to auscultation bilaterally Cardio: Rate: regular rate Rhythm: regular rhythm GI: GI Palp: Yes Soft to palpation Auscultation: normal bowel sounds Urinary Catheter: Urinary Catheter: patent and draining and urine clear Skin: General skin exam: normal color and no rashes or lesions noted Neuro: Other: patient is awake alert well oriented follows all commands with normal speech and language functions and moderately severe left-sided hemiparesis needing assistance all the activities of daily living Extrem: General: normal to inspection Psych: Mental Status: mental status grossly normal Objective Data Vital Signs Vital Signs: Vital Signs - 24 hr 10/25/19 14:00 10/25/19 22:00 10/26/19 06:00 Temperature 36.4 C 37.0 C 37.0 C Pulse Rate 96 96 86 Respiratory Rate 18 20 18 Blood Pressure 124/76 144/69 H 145/72 H Pulse Oximetry 97 97 95 Intake/Output Intake/Output: Intake & Output 10/23/19 10/24/19 10/25/19 10/26/19 23:59 23:59 23:59 23:59 Intake Total 1400 960 870 360 Output Total 3450 4850 2700 600 Balance -2050 -3890 -1830 -240 Meds/Results Medications: Active Medications Generic Name Dose Route Start Last Admin Trade Name Freq PRN Reason Stop Dose Admin Acetaminophen 650 mg 10/18/19 16:45 10/26/19 08:51 Tylenol Tablet PO 650 mg Q4H PRN Administration headache Hydrocodone Bitart/Acetaminophen 1 tab 10/18/19 16:45 10/21/19 05:14 [place] 5-325 Mg PO 1 tab Q4H PRN Administration Pain (Scale Score 4-6) Hydrocodone Bitart/Acetaminophen 2 tab 10/18/19 16:45 10/22/19 11:18 [place] 5-325 Mg PO 2 tab Q4H PRN Administration Pain (Scale Score 7-10) Amlodipine Besylate 10 mg 10/21/19 09:00 10/26/19 08:56 Norvasc PO 10 mg QAM PALAK Administration Aspirin 81 mg 10/21/19 08:00 10/26/19 08:52 Aspirin Chewable PO 81 mg DAILY@0800 PALAK Administration Atorvastatin Calcium 40 mg 10/21/19 09:00 10/26/19 08:56 Lipitor PO 40 mg DAILY PALAK Administration Dextrose 12.5 gm 10/18/19 16:48 Dextrose 50% Syringe IV PUSH PRN PRN Hypoglycemia Protocol Fluticasone Propionate 1 spray 10/19/19 09:00 10/26/19 08:52 Flonase 0.05% Nasal [place] NASAL 1 spray DAILY PALAK Administration Gabapentin 400 mg 10/18/19 17:00 10/26/19 08:56 Neurontin PO 400 mg TID PALAK Administration Glucagon 1 mg 10/18/19 16:48 Glucagon For Inj IM PRN PRN Hypoglycemia Protocol Glucose 15 gm 10/18/19 16:48 Glutose 15 PO PRN PRN Hypoglycemia Protocol Heparin Sodium (Porcine) 5,000 units 10/21/19 06:00 10/26/19 06:24 Heparin Sodium SUB-Q 5,000 units Q8HR PALAK Administration Dextrose 1,000 mls @ 100 mls/hr 10/18/19 16:48 Dextrose 5% 1,000 Ml IVPB PRN PRN Hypoglycemia Protocol Insulin Aspart 2 - 5 units
[2019-10-26 14:00] VITALS: BP 131/68; PULSE 96; RESP 18; TEMP 36.2; O2SAT 95
--- NOTE | 2019-10-26 16:01 | PM.PNNEP ---
Progress Note: A&P Assessment and Plan (1) Hyponatremia: Code(s): E87.1 - Hypo-osmolality and hyponatremia Status: Acute Assessment and Plan: sodium in normal range by recent labs TSH and cosyntropin stimulation test normal suspect etiology due to use of Paxil, recent CVA, and increased fluid intake continue fluid restriction for now follow trend of sodium levels (2) Hypertension: Code(s): I10 - Essential (primary) hypertension Status: Chronic Assessment and Plan: blood pressure stable continue to follow hemodynamics (3) Stroke: Code(s): I63.9 - Cerebral infarction, unspecified Status: Chronic Assessment and Plan: continue aggressive rehab/PT/OT continues supportive therapy Will continue to follow. Subjective Date/time seen: 10/26/19 16:01 Chart reviewed since admission -- no apparent distress voiced at this time; feels reasonably well; working reasonably well with PT/OT; no events/issues overnight or earlier this AM. Exam Narrative: Exam Narrative: General: Elderly male in NAD Heart: normal S1 and S2; no rub Lungs: clear to auscultation Abdomen: soft, nontender, nondistended, positive bowel sounds Extremities: no cyanosis or clubbing; no edema; hemiparesis noted Skin: warm and dry Objective Data Vital Signs Vital Signs: Vital Signs Temp Pulse Resp BP Pulse Ox 10/26/19 14:00 36.2 C L 96 18 131/68 95 10/26/19 06:00 37.0 C 86 18 145/72 H 95 10/25/19 22:00 37.0 C 96 20 144/69 H 97 Intake/Output Intake/Output: Intake & Output 10/23/19 10/24/19 10/25/19 10/26/19 23:59 23:59 23:59 23:59 Intake Total 1400 960 870 600 Output Total 3450 4850 2700 600 Balance -2049 0 Meds/Results Medications: Active Medications Generic Name Dose Route Start Last Admin Trade Name Freq PRN Reason Stop Dose Admin Acetaminophen 650 mg 10/18/19 16:45 10/26/19 08:51 Tylenol Tablet PO 650 mg Q4H PRN Administration headache Hydrocodone Bitart/Acetaminophen 1 tab 10/18/19 16:45 10/26/19 12:29 [place] 5-325 Mg PO 1 tab Q4H PRN Administration Pain (Scale Score 4-6) Hydrocodone Bitart/Acetaminophen 2 tab 10/18/19 16:45 10/22/19 11:18 [place] 5-325 Mg PO 2 tab Q4H PRN Administration Pain (Scale Score 7-10) Amlodipine Besylate 10 mg 10/21/19 09:00 10/26/19 08:56 Norvasc PO 10 mg QAM PALAK Administration Aspirin 81 mg 10/21/19 08:00 10/26/19 08:52 Aspirin Chewable PO 81 mg DAILY@0800 PALKA Administration Atorvastatin Calcium 40 mg 10/21/19 09:00 10/26/19 08:56 Lipitor PO 40 mg DAILY PALAK Administration Dextrose 12.5 gm 10/18/19 16:48 Dextrose 50% Syringe IV PUSH PRN PRN Hypoglycemia Protocol Fluticasone Propionate 1 spray 10/19/19 09:00 10/26/19 08:52 Flonase 0.05% Nasal [place] NASAL 1 spray DAILY PALAK Administration Gabapentin 400 mg 10/18/19 17:00 10/26/19 12:25 Neurontin PO 400 mg TID PALAK Administration Glucagon 1 mg 10/18/19 16:48 Glucagon For Inj IM PRN PRN Hypoglycemia Protocol Glucose 15 gm 10/18/19 16:48 Glutose 15 PO PRN PRN Hypoglycemia Protocol Heparin Sodium (Porcine) 5,000 units 10/21/19 06:00 10/26/19 14:58 Heparin Sodium SUB-Q 5,000 units Q8HR PALAK Administration Dextrose 1,000 mls @ 100 mls/hr 10/18/19 16:48 Dextrose 5% 1,000 Ml IVPB PRN PRN Hypoglycemia Protocol Insulin Aspart 2 - 5 units 10/18/19 17:00 10/26/19 12:24 Novolog SUB-Q Not Given TIDWM PALAK Protocol Insulin Aspart 5 units 10/18/19 17:00 10/26/19 12:25 Novolog SUB-Q 5 units TIDWM PALAK Administration Insulin Glargine 60 units 10/18/19 21:00 10/25/19 21:26 Lantus SUB-Q 60 units HS PALAK Administration Levothyroxine Sodium 50 mcg 10/21/19 06:30 10/26/19 06:24 Synthroid PO 50 mcg DAILY@0630 [facility] Admin
[2019-10-26 17:08] LABS: Glucose Point of Care 217 (65-105)
[2019-10-26] MEDS: metFORMIN HCL XR 500 MG TAB.SR.24H 1000 MG PO (17:31)
[2019-10-26] MEDS: QUEtiapine FUMARATE 25 MG TABLET 50 MG PO (19:46)
[2019-10-26] MEDS: PHENYTOIN SODIUM 100 MG CAP 300 MG PO (19:46)
[2019-10-26] MEDS: INSULIN GLARGINE (*BKC) 100 UNITS/ML 60 UNITS SUB-Q (19:52)
[2019-10-26 20:05] LABS: Alpha 1 Globulin 0.4 g/dL (0.2-0.3); Alpha 2 Globulin 0.9 g/dL (0.5-0.9); Beta 1 Globulin 0.5 g/dL (0.4-0.6); Protein, Total 6.2 g/dL (6.1-8.1)
[2019-10-26 20:07] LABS: Glucose Point of Care 227 (65-105)
[2019-10-26 22:00] VITALS: BP 165/75; PULSE 94; RESP 18; TEMP 36.4; O2SAT 93
[2019-10-27] MEDS: ACETAMINOPHEN 325 MG TABLET 650 MG PO (02:06)
[2019-10-27 04:44] LABS: Hematocrit 30.8 % (42.0-52.0); Hemoglobin 10.3 g/dL (14.0-18.0); Mean Corpuscular HGB Conc 33.4 g/dl (32-36); Mean Corpuscular Hemoglobin 33.9 pg (26-34); Mean Corpuscular Volume 101.3 fl (80-100); Mean Platelet Volume 8.7 fl (7.4-10.4); Platelet Count Result 260 k/mm3 (150-375); Red Blood Count 3.04 M/mm3 (4.6-6.20); Red Cell Distribution Width 13.2 % (11.5-14.5); White Blood Count 7.7 K/mm3 (4.5-10.0)
[2019-10-27 04:52] LABS: Kappa\\Lambda Light Chains 1.14 (0.26-1.65); Lambda Light Chain 24.3 mg/L (5.7-26.3)
[2019-10-27 04:58] LABS: Anion Gap 6 mmol/L (8-16); Blood Urea Nitrogen 24 mg/dL (9-20); Calcium 8.1 mg/dL (8.4-10.2); Carbon Dioxide 22 mmol/L (22-30); Chloride 110 mmol/L (98-107); Estimated CRCL calculation 77 ml/min; Estimated Glomerular Filt Rate > 60; Glucose 107 mg/dL (75-110); Potassium 4.1 mmol/L (3.4-5.0); Sodium 138 mmol/L (137-145)
[2019-10-27] MEDS: LEVOTHYROXINE SODIUM 50 MCG TABLET PO (05:42)
[2019-10-27] MEDS: HEPARIN SODIUM 5,000 UNITS/ML VIAL 5000 UNITS SUB-Q ×3 (05:42→20:21)
[2019-10-27 06:00] VITALS: BP 150/70; PULSE 83; RESP 18; TEMP 36.9; O2SAT 97
[2019-10-27 06:45] LABS: Glucose Point of Care 91 (65-105)
[2019-10-27] MEDS: INSULIN ASPART (*BKC) 100 UNITS/ML SUB-Q ×4 (07:25→17:38)
[2019-10-27] MEDS: amLODIPine BESYLATE 5 MG TABLET 10 MG PO (07:53)
[2019-10-27] MEDS: FLUTICASONE PROPIONATE 0.05% NA SPR 16 GM BTL (*BKC) 1 SPRAY NASAL (07:53)
[2019-10-27] MEDS: ASPIRIN 81 MG CHEWABLE TABLET PO (07:53)
[2019-10-27] MEDS: PHENYTOIN SODIUM 100 MG CAP 200 MG PO (07:54)
[2019-10-27] MEDS: SENNA/DOCUSATE SODIUM TABLET 1 TAB PO ×2 (07:54→17:38)
[2019-10-27] MEDS: ATORVASTATIN 40 MG TABLET PO (07:54)
[2019-10-27] MEDS: GABAPENTIN 400 MG CAPSULE PO ×3 (07:54→17:38)
[2019-10-27] MEDS: PARoxetine 20 MG TABLET PO (07:54)
[2019-10-27] MEDS: lisinopriL 10 MG TABLET PO (07:54)
[2019-10-27] MEDS: SODIUM CHLORIDE 1 GM TABLET 2 GM PO ×3 (07:55→17:39)
[2019-10-27] MEDS: TAMSULOSIN HCL 0.4 MG CAPSULE PO (07:55)
[2019-10-27] MEDS: VALSARTAN 160 MG TABLET 320 MG PO (07:55)
[2019-10-27 08:50] VITALS: BMI 10.0
--- NOTE | 2019-10-27 09:20 | PCOTNOTE ---
It is recommended that this patient, Abilio Grijalva, have a drop-arm commode for home use. This patient is currently non-ambulatory, wheelchair dependent, and requires use of a sliding board to transfer. This patient is room confined with the inability to access his toilet at home and will therefore require use of a drop-arm commode. The patient also has further impairments of weakness, left hemiparesis, and decreased endurance, balance, and coordination. A drop-arm commode is recommended for home use in order to provide optimal safety and independence with toileting tasks and transfers. The drop-arm commode will allow patient access to a toilet, will resolve patient's mobility limitations, and will provide safe access to a toilet within her home. I agree with and certify that the above recommendation is medically necessary.
[2019-10-27 12:07] LABS: Glucose Point of Care 131 (65-105)
--- NOTE | 2019-10-27 12:40 | PCDIET ---
Nutrition Follow-Up Complete: Nutrition Diagnosis: Predicted suboptimal oral intake related to dysphagia as evidenced by patient requesting solid foods on minced and moist diet. Nutrition Goal: Patient to consume 75% of meals/supplements or greater. Goal met. Patient consuming 100% of most meals on heart healthy diet with fluid restriction which is appropriate. Last recorded weight is 76.2 kg. Recommend obtaining new weight. Bowel Motility: Last documented BM, per nursing flowsheet, was 10/25/19. Labs Reviewed: Hgb (10.3), Hct (30.8), BUN (24), Alb (3.2), Konstantin Ca (8.74) Meds Noted: [place], Novolog, Lantus, Synthroid, Lisinopril, Glucophage, Dilantin, Miralax, Senna, Januvia, Diovan Additional Notes: No documented skin breakdown. Reviewed importance of following heart healthy, carbohydrate controlled diet. Handouts added to discharge instructions, as well. Will continue to monitor with same goal. Nutrition Monitoring and Evaluation: Follow up in 7 days.
--- NOTE | 2019-10-27 13:07 | WPDNEURORHBP ---
Subjective Date/time seen: 10/27/19 13:07 Interval history: this 69-year-old is here after having had stroke with left-sided hemiplegia/hemiparesis his continues to be better her pain rather his pain around head and neck area is fairly decently controlled he denies any headache nausea vomiting chest pain shortness of breath fever chills sore throat his showed a sodium and potassium are better the patient will need the family training Review of Systems Review of Systems: All systems reviewed & are unremarkable except as noted in HPI and below Functional Status Transfers Ability Ability to Transfer In/Out of Chair: Total Assistance X 2 Exam Const: General: comfortable and no acute distress HENMT: General nose exam: Normal nares present Mouth: Yes moist mucous membranes Eyes: General: appearance normal, both eyes and all related structures Neck: Neck: supple and no JVD Resp: Effort & Inspection: normal respiratory effort Auscultation: clear to auscultation bilaterally Cardio: Rate: regular rate Rhythm: regular rhythm GI: GI Palp: Yes Soft to palpation Auscultation: normal bowel sounds Skin: General skin exam: normal color and no rashes or lesions noted Neuro: Other: patient is awake and alert well oriented to time place and person with the left-sided moderately severe hemiparesis and left-sided neglect and visual field Extrem: General: normal to inspection Psych: Mental Status: mental status grossly normal Objective Data Vital Signs Vital Signs: Vital Signs - 24 hr 10/26/19 14:00 10/26/19 22:00 10/27/19 06:00 Temperature 36.2 C L 36.4 C 36.9 C Pulse Rate 96 94 83 Respiratory Rate 18 18 18 Blood Pressure 131/68 165/75 H 150/70 H Pulse Oximetry 95 93 97 Intake/Output Intake/Output: Intake & Output 10/24/19 10/25/19 10/26/19 10/27/19 23:59 23:59 23:59 23:59 Intake Total 828 578 5506 720 Output Total 4850 2700 1250 550 Balance -3890 -1830 130 170 Meds/Results Medications: Active Medications Generic Name Dose Route Start Last Admin Trade Name Freq PRN Reason Stop Dose Admin Acetaminophen 650 mg 10/18/19 16:45 10/27/19 02:06 Tylenol Tablet PO 650 mg Q4H PRN Administration headache Hydrocodone Bitart/Acetaminophen 1 tab 10/18/19 16:45 10/27/19 10:23 [place] 5-325 Mg PO 1 tab Q4H PRN Administration Pain (Scale Score 4-6) Hydrocodone Bitart/Acetaminophen 2 tab 10/18/19 16:45 10/22/19 11:18 [place] 5-325 Mg PO 2 tab Q4H PRN Administration Pain (Scale Score 7-10) Amlodipine Besylate 10 mg 10/21/19 09:00 10/27/19 07:53 Norvasc PO 10 mg QAM PALAK Administration Aspirin 81 mg 10/21/19 08:00 10/27/19 07:53 Aspirin Chewable PO 81 mg DAILY@0800 PALAK Administration Atorvastatin Calcium 40 mg 10/21/19 09:00 10/27/19 07:54 Lipitor PO 40 mg DAILY PALAK Administration Dextrose 12.5 gm 10/18/19 16:48 Dextrose 50% Syringe IV PUSH PRN PRN Hypoglycemia Protocol Fluticasone Propionate 1 spray 10/19/19 09:00 10/27/19 07:53 Flonase 0.05% Nasal [place] NASAL 1 spray DAILY PALAK Administration Gabapentin 400 mg 10/18/19 17:00 10/27/19 12:34 Neurontin PO 400 mg TID PALAK Administration Glucagon 1 mg 10/18/19 16:48 Glucagon For Inj IM PRN PRN Hypoglycemia Protocol Glucose 15 gm 10/18/19 16:48 Glutose 15 PO PRN PRN Hypoglycemia Protocol Heparin Sodium (Porcine) 5,000 units 10/21/19 06:00 10/27/19 05:42 Heparin Sodium SUB-Q 5,000 units Q8HR PALAK Administration Dextrose 1,000 mls @ 100 mls/hr 10/18/19 16:48 Dextrose 5% 1,000 Ml IVPB PRN PRN Hypoglycemia Protocol Insulin Aspart 2 - 5 units 10/18/19 17:00 10/27/19 12:33 Novolog SUB-Q Not Given TIDWM PALAK Protocol Insulin Aspart 5 units 10/18/19 17:00 10/27/19 12:33 Novolog SUB-Q 5 units TIDWM PALAK Administration Insulin Glargine 60 units
[2019-10-27 14:00] VITALS: BP 137/59; PULSE 92; RESP 18; TEMP 36.6; O2SAT 98
[2019-10-27 17:03] LABS: Glucose Point of Care 237 (65-105)
[2019-10-27] MEDS: metFORMIN HCL XR 500 MG TAB.SR.24H 1000 MG PO (17:39)
[2019-10-27 20:00] VITALS: PULSE 91; RESP 18; O2SAT 97
[2019-10-27] MEDS: PHENYTOIN SODIUM 100 MG CAP 300 MG PO (20:20)
[2019-10-27] MEDS: INSULIN GLARGINE (*BKC) 100 UNITS/ML 60 UNITS SUB-Q (20:20)
[2019-10-27] MEDS: QUEtiapine FUMARATE 25 MG TABLET 50 MG PO (20:21)
[2019-10-27 20:44] LABS: Glucose Point of Care 198 (65-105)
[2019-10-27 20:57] VITALS: BP 157/79; PULSE 91; RESP 18; TEMP 36.6; O2SAT 97
[2019-10-28 04:59] VITALS: BP 164/81; PULSE 89; RESP 18; TEMP 36.2; O2SAT 98
[2019-10-28] MEDS: HEPARIN SODIUM 5,000 UNITS/ML VIAL 5000 UNITS SUB-Q ×3 (06:06→22:30)
[2019-10-28] MEDS: LEVOTHYROXINE SODIUM 50 MCG TABLET PO (06:06)
[2019-10-28] MEDS: FLUTICASONE PROPIONATE 0.05% NA SPR 16 GM BTL (*BKC) 1 SPRAY NASAL (06:38)
[2019-10-28 07:01] LABS: Glucose Point of Care 139 (65-105)
[2019-10-28] MEDS: INSULIN ASPART (*BKC) 100 UNITS/ML SUB-Q ×3 (07:40→17:06)
[2019-10-28] MEDS: ASPIRIN 81 MG CHEWABLE TABLET PO (08:38)
[2019-10-28] MEDS: ATORVASTATIN 40 MG TABLET PO (08:39)
[2019-10-28] MEDS: TAMSULOSIN HCL 0.4 MG CAPSULE PO (08:39)
[2019-10-28] MEDS: amLODIPine BESYLATE 5 MG TABLET 10 MG PO (08:39)
[2019-10-28] MEDS: SENNA/DOCUSATE SODIUM TABLET 1 TAB PO ×2 (08:39→17:00)
[2019-10-28] MEDS: SODIUM CHLORIDE 1 GM TABLET 2 GM PO ×3 (08:40→17:00)
[2019-10-28] MEDS: lisinopriL 10 MG TABLET PO (08:40)
[2019-10-28] MEDS: PARoxetine 20 MG TABLET PO (08:40)
[2019-10-28] MEDS: PHENYTOIN SODIUM 100 MG CAP 200 MG PO (08:40)
[2019-10-28] MEDS: VALSARTAN 160 MG TABLET 320 MG PO (08:40)
[2019-10-28] MEDS: GABAPENTIN 400 MG CAPSULE PO ×3 (08:41→17:01)
[2019-10-28 09:31] VITALS: BMI 10.0
--- NOTE | 2019-10-28 11:56 | WPDNEURORHBP ---
Subjective Date/time seen: 10/28/19 11:56 Interval history: this 69-year-old gentleman is here status post stroke which has left him with significant left-sided hemiparesis from which he is slowly improving his also has a bladder retention and has a Harman catheter which is clear and does not show any blood is presently on heparin subcu for DVT prophylaxis however I would most likely discharge him depending upon the pharmacy approval Xarelto 10 milligram daily for another 10 days or so Patient denies any headache nausea vomiting chest pain shortness of breath fever chills sore throat Review of Systems Review of Systems: All systems reviewed & are unremarkable except as noted in HPI and below Functional Status Transfers Ability Ability to Transfer In/Out of Chair: Total Assistance X 2 Exam Const: General: comfortable and no acute distress HENMT: General nose exam: Normal nares present Mouth: Yes moist mucous membranes Eyes: General: appearance normal, both eyes and all related structures Neck: Neck: supple and no JVD Resp: Effort & Inspection: normal respiratory effort Auscultation: clear to auscultation bilaterally Cardio: Rate: regular rate Rhythm: regular rhythm GI: GI Palp: Yes Soft to palpation Auscultation: normal bowel sounds Urinary Catheter: Urinary Catheter: patent and draining and urine clear Skin: General skin exam: normal color and no rashes or lesions noted Neuro: Other: Abilio is awake and alert will oriented follows commands with left-sided visual field defect and left-sided slowly improving moderately severe hemiparesis Extrem: General: normal to inspection Psych: Mental Status: mental status grossly normal Objective Data Vital Signs Vital Signs: Vital Signs - 24 hr 10/27/19 14:00 10/27/19 20:00 10/27/19 20:57 Temperature 36.6 C 36.6 C Pulse Rate 92 91 91 Respiratory Rate 18 18 18 Blood Pressure 137/59 L 157/79 H Pulse Oximetry 98 97 97 10/28/19 04:59 Temperature 36.2 C L Pulse Rate 89 Respiratory Rate 18 Blood Pressure 164/81 H Pulse Oximetry 98 Intake/Output Intake/Output: Intake & Output 10/25/19 10/26/19 10/27/19 10/28/19 23:59 23:59 23:59 23:59 Intake Total 870 1380 1420 480 Output Total 1450 1250 1250 550 Balance -580 130 170 -70 Meds/Results Medications: Active Medications Generic Name Dose Route Start Last Admin Trade Name [place] PRN Reason Stop Dose Admin Acetaminophen 650 mg 10/18/19 16:45 10/27/19 02:06 Tylenol Tablet PO 650 mg Q4H PRN Administration headache Hydrocodone Bitart/Acetaminophen 1 tab 10/18/19 16:45 10/28/19 06:46 [place] 5-325 Mg PO 1 tab Q4H PRN Administration Pain (Scale Score 4-6) Hydrocodone Bitart/Acetaminophen 2 tab 10/18/19 16:45 10/22/19 11:18 [place] 5-325 Mg PO 2 tab Q4H PRN Administration Pain (Scale Score 7-10) Amlodipine Besylate 10 mg 10/21/19 09:00 10/28/19 08:39 Norvasc PO 10 mg QAM PALAK Administration Aspirin 81 mg 10/21/19 08:00 10/28/19 08:38 Aspirin Chewable PO 81 mg DAILY@0800 PALAK Administration Atorvastatin Calcium 40 mg 10/21/19 09:00 10/28/19 08:39 Lipitor PO 40 mg DAILY PALAK Administration Dextrose 12.5 gm 10/18/19 16:48 Dextrose 50% Syringe IV PUSH PRN PRN Hypoglycemia Protocol Fluticasone Propionate 1 spray 10/19/19 09:00 10/28/19 06:38 Flonase 0.05% Nasal [place] NASAL 1 spray DAILY PALAK Administration Gabapentin 400 mg 10/18/19 17:00 10/28/19 08:41 Neurontin PO 400 mg TID PALAK Administration Glucagon 1 mg 10/18/19 16:48 Glucagon For Inj IM PRN PRN Hypoglycemia Protocol Glucose 15 gm 10/18/19 16:48 Glutose 15 PO PRN PRN Hypoglycemia Protocol Heparin Sodium (Porcine) 5,000 units 10/21/19 06:00 10/28/19 06:06 Heparin Sodium SUB-Q 5,000 units Q8HR PALAK Administration Dextrose 1,000 mls @ 100 mls/hr 10/18/19 16:48 Dextrose 5% 1
[2019-10-28 12:32] LABS: Glucose Point of Care 187 (65-105)
[2019-10-28 14:00] VITALS: BP 141/77; PULSE 92; RESP 20; TEMP 36.5; O2SAT 98
[2019-10-28] MEDS: ACETAMINOPHEN 325 MG TABLET 650 MG PO ×2 (14:14→20:18)
[2019-10-28 14:37] VITALS: BMI 10.0
--- NOTE | 2019-10-28 15:00 | PC.NURSE ---
siri called in today, to patients pharmacey. Scrip will cost patient $42.49, social service made aware
[2019-10-28] MEDS: metFORMIN HCL XR 500 MG TAB.SR.24H 1000 MG PO (17:01)
[2019-10-28 17:33] LABS: Glucose Point of Care 259 (65-105)
[2019-10-28] MEDS: PHENYTOIN SODIUM 100 MG CAP 300 MG PO (20:16)
[2019-10-28] MEDS: QUEtiapine FUMARATE 25 MG TABLET 50 MG PO (20:17)
[2019-10-28] MEDS: INSULIN GLARGINE (*BKC) 100 UNITS/ML 60 UNITS SUB-Q (20:21)
[2019-10-28 20:45] LABS: Glucose Point of Care 203 (65-105)
[2019-10-28 22:00] VITALS: BP 139/83; PULSE 92; RESP 20; TEMP 37.3; O2SAT 97
[2019-10-29] MEDS: ACETAMINOPHEN 325 MG TABLET 650 MG PO ×2 (04:59→12:08)
[2019-10-29] MEDS: HEPARIN SODIUM 5,000 UNITS/ML VIAL 5000 UNITS SUB-Q (05:00)
[2019-10-29] MEDS: LEVOTHYROXINE SODIUM 50 MCG TABLET PO (05:32)
[2019-10-29 05:49] VITALS: BP 150/77; PULSE 90; RESP 20; TEMP 36.9; O2SAT 96
[2019-10-29 06:42] LABS: Glucose Point of Care 123 (65-105)
[2019-10-29] MEDS: ASPIRIN 81 MG CHEWABLE TABLET PO (07:38)
[2019-10-29] MEDS: INSULIN ASPART (*BKC) 100 UNITS/ML SUB-Q ×2 (07:38→12:07)
[2019-10-29] MEDS: amLODIPine BESYLATE 5 MG TABLET 10 MG PO (07:39)
[2019-10-29] MEDS: lisinopriL 10 MG TABLET PO (07:40)
[2019-10-29] MEDS: TAMSULOSIN HCL 0.4 MG CAPSULE PO (07:40)
[2019-10-29] MEDS: PHENYTOIN SODIUM 100 MG CAP 200 MG PO (07:40)
[2019-10-29] MEDS: VALSARTAN 160 MG TABLET 320 MG PO (07:40)
[2019-10-29] MEDS: GABAPENTIN 400 MG CAPSULE PO ×2 (07:40→12:06)
[2019-10-29] MEDS: SENNA/DOCUSATE SODIUM TABLET 1 TAB PO (07:40)
[2019-10-29] MEDS: SODIUM CHLORIDE 1 GM TABLET 2 GM PO ×2 (07:41→12:07)
[2019-10-29] MEDS: PARoxetine 20 MG TABLET PO (07:41)
[2019-10-29] MEDS: FLUTICASONE PROPIONATE 0.05% NA SPR 16 GM BTL (*BKC) 1 SPRAY NASAL (07:41)
[2019-10-29] MEDS: ATORVASTATIN 40 MG TABLET PO (07:41)
--- NOTE | 2019-10-29 10:26 | WPDNEURORHBP ---
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 which had given him trigeminal neurology type of symptoms on the left side of the face which is fairly decently controlled his moderately severe left-sided hemiparesis has improved and his going to be discharged today looking forward to go he has bladder retention and the urine is clear and the catheter is in place The patient denies any significant or severe headaches nausea vomiting chest pain shortness of breath fever chills sore throat Review of Systems Review of Systems: All systems reviewed & are unremarkable except as noted in HPI and below Functional Status Transfers Ability Ability to Transfer In/Out of Chair: Total Assistance X 2 Exam Const: General: comfortable and no acute distress HENMT: General nose exam: Normal nares present Mouth: Yes moist mucous membranes Eyes: General: appearance normal, both eyes and all related structures Neck: Neck: supple and no JVD Resp: Effort & Inspection: normal respiratory effort Auscultation: clear to auscultation bilaterally Cardio: Rate: regular rate Rhythm: regular rhythm GI: GI Palp: Yes Soft to palpation Auscultation: normal bowel sounds Urinary Catheter: Urinary Catheter: patent and draining and urine clear Skin: General skin exam: normal color and no rashes or lesions noted Neuro: Other: patient is awake alert and well oriented time place and person has normal speech and language functions moderately severe left-sided hemiparesis which has improved he has not any distress and the family will be taking care him at home with home health overall he has significantly improved from the time we have received Extrem: General: normal to inspection Psych: Mental Status: mental status grossly normal Objective Data Vital Signs Vital Signs: Vital Signs - 24 hr 10/28/19 14:00 10/28/19 22:00 10/29/19 05:49 Temperature 36.5 C 37.3 C 36.9 C Pulse Rate 92 92 90 Respiratory Rate 20 20 20 Blood Pressure 141/77 H 139/83 150/77 H Pulse Oximetry 98 97 96 Intake/Output Intake/Output: Intake & Output 10/26/19 10/27/19 10/28/19 10/29/19 23:59 23:59 23:59 23:59 Intake Total 1380 1420 960 240 Output Total 1250 1250 1500 550 Balance 130 170 -540 -310 Meds/Results Medications: Active Medications Generic Name Dose Route Start Last Admin Trade Name Freq PRN Reason Stop Dose Admin Acetaminophen 650 mg 10/18/19 16:45 10/29/19 04:59 Tylenol Tablet PO 650 mg Q4H PRN Administration headache Hydrocodone Bitart/Acetaminophen 1 tab 10/18/19 16:45 10/28/19 06:46 [place] 5-325 Mg PO 1 tab Q4H PRN Administration Pain (Scale Score 4-6) Hydrocodone Bitart/Acetaminophen 2 tab 10/18/19 16:45 10/22/19 11:18 [place] 5-325 Mg PO 2 tab Q4H PRN Administration Pain (Scale Score 7-10) Amlodipine Besylate 10 mg 10/21/19 09:00 10/29/19 07:39 Norvasc PO 10 mg QAM PALAK Administration Aspirin 81 mg 10/21/19 08:00 10/29/19 07:38 Aspirin Chewable PO 81 mg DAILY@0800 PALAK Administration Atorvastatin Calcium 40 mg 10/21/19 09:00 10/29/19 07:41 Lipitor PO 40 mg DAILY PALAK Administration Dextrose 12.5 gm 10/18/19 16:48 Dextrose 50% Syringe IV PUSH PRN PRN Hypoglycemia Protocol Fluticasone Propionate 1 spray 10/19/19 09:00 10/29/19 07:41 Flonase 0.05% Nasal [place] NASAL 1 spray DAILY PALAK Administration Gabapentin 400 mg 10/18/19 17:00 10/29/19 07:40 Neurontin PO 400 mg TID PALAK Administration Glucagon 1 mg 10/18/19 16:48 Glucagon For Inj IM PRN PRN Hypoglycemia Protocol Glucose 15 gm 10/18/19 16:48 Glutose 15 PO PRN PRN Hypoglycemia Protocol Dextrose 1,000 mls @ 100 mls/hr 10/18/19 16:48 Dextrose 5% 1,000 Ml IVPB PRN PRN Hypoglycemia Protoc
[2019-10-29 12:01] LABS: Phenytoin Dilantin 17 ug/mL (10-20)
[2019-10-29 12:01] LABS: Glucose Point of Care 160 (65-105)
[2019-10-29] MEDS: RIVAROXABAN 10 MG TABLET PO (12:07)
--- NOTE | 2019-10-30 12:22 | PM.DS ---
DS: Admitting Diagnosis Admitting Diagnosis Admitting Diagnosis: CVA DS: Discharge Diagnosis Discharge Diagnosis (1) Hyponatremia: Code(s): E87.1 - Hypo-osmolality and hyponatremia Status: Resolved (2) Suicidal ideation: Code(s): R45.851 - Suicidal ideations Status: Acute (3) BPH (benign prostatic hyperplasia): Code(s): N40.0 - Benign prostatic hyperplasia without lower urinary tract symptoms Status: Chronic (4) Hypothyroidism: Code(s): E03.9 - Hypothyroidism, unspecified Status: Chronic (5) Hyperlipidemia: Code(s): E78.5 - Hyperlipidemia, unspecified Status: Chronic (6) Diabetes mellitus type 2 in nonobese: Code(s): E11.9 - Type 2 diabetes mellitus without complications Status: Chronic (7) Hallucinations: Code(s): R44.3 - Hallucinations, unspecified Status: Acute (8) Hemiparesis of left nondominant side: Code(s): G81.94 - Hemiplegia, unspecified affecting left nondominant side Status: Chronic (9) Trigeminal neuralgia: Code(s): G50.0 - Trigeminal neuralgia Status: Acute (10) Hypertension: Code(s): I10 - Essential (primary) hypertension Status: Chronic (11) Stroke: Code(s): I63.9 - Cerebral infarction, unspecified Status: Chronic DS: Summary Hospital Course Reason for hospitalization: this 69-year-old gentleman was admitted to our acute rehab after having had the right hemispheric stroke which was followed with the picture of trigeminal neurology type of pain related to thalamic part of the right-side of the brain he had some suicidal ideation with background history of having had hospitalize the psych unit sometimes in the past and for brief eat of time he was observed in the ICU and came back to the rehab floor never complained of any kind of suicidal ideations his hallucinations he was having also resolved and the pain he was having resolved with the use of the gabapentin other medical issues have been mentioned above and also in my previous notes and in my history and physical examination he received extensive is speech therapy physical therapy of compression therapy and gait training along with the counseling from this physician combined with the discussion with the family members including the daughter and the son-in-law he was not able to achieve the following independent measures and was able to be discharged home with home health to follow with follow-up instructions to be followed by the treating physicians who saw him initially for the stroke and also primary care physician Hospital Course: he was able to achieve the following independent measures Eating setup, oral hygiene set up, toileting dependent, bathing partial assistance, upper body dressing partial assistance, lower body dressings substantial, foot fair substantial, rolling in bed partial assistance, sitting to lying substantial, lying to sitting substantial, sit to stand partial assistance, chair transfers substantial, toilet transfers substantial, the car transfers patient unable to, walking 10 feet patient was unable to, walking 50 feet with to turns patient was unable to, walking 150 feet patient was unable to, walking 10 feet uneven surfaces patient was unable to, carb or step patient unable to 4 steps patient was unable to, the chemo object patient was unable to, wheelchair 50 feet partial assistance, wheelchair 150 feet partial assistance Patient was sent home with home health no falls were recorded Time Spent with Patient Time attestation: Total time spent providing and/or coordinating discharge services: Exam Const: General: comfortable and no acute distress HENMT: General nose exam: Normal nares present Mouth: Yes dry mucous membranes Eyes: General: appearance normal, both eyes and all related structures Neck: Neck: supple and no JVD Resp: Effort & Inspection: normal respiratory effort Auscultation: clear
--- NOTE | 2019-11-09 16:29 | PM.IMPN ---
Progress Note: A&P Assessment and Plan (1) Suicidal ideation: Code(s): R45.851 - Suicidal ideations Status: Acute Assessment and Plan: 11/09/19 16:29 Abilio Grijalva is a 69 year old male initially admitted to [facility] status post CVA with left upper and lower extremity weakness however while in the [facility] patient became quite depressed and wanted to commit suicide patient was transferred to ICU and observed and was seen by crisis team and have and agreement the patient will not commit suicide, patient does remain clinically stable, yesterday patient potassium was 5.6 and was given 1 time dose of Kayexalate 15 mg p.o. times, today repeat potassium is 5.4, will give another dose of Kayexalate, patient is clinically stable does not any complaint of chest pain shortness of breath palpitation or dizziness, patient does appear depressed., Today patient clinically stayed his potassium is close to normal, will sign off upon discharge patient will be benefit from psychiatry consult. (2) Diabetes mellitus type 2 in nonobese: Code(s): E11.9 - Type 2 diabetes mellitus without complications Status: Chronic Assessment and Plan: will continue home regimen and monitor (3) Hypertension: Code(s): I10 - Essential (primary) hypertension Status: Chronic Assessment and Plan: will continue home regimen and monitor Subjective Date/time seen: 11/09/19 16:29 Abilio Grijalva is a 69 year old male initially admitted to [facility] status post CVA with left upper and lower extremity weakness however while in the [facility] patient became quite depressed and wanted to commit suicide patient was transferred to ICU and observed and was seen by crisis team and have and agreement the patient will not commit suicide, patient does remain clinically stable, yesterday patient potassium was 5.6 and was given 1 time dose of Kayexalate 15 mg p.o. times, today repeat potassium is 5.4, will give another dose of Kayexalate, patient is clinically stable does not any complaint of chest pain shortness of breath palpitation or dizziness, patient does appear depressed., Today patient clinically stayed his potassium is close to normal, will sign off upon discharge patient will be benefit from psychiatry consult. Review of Systems Review of Systems: All systems reviewed & are unremarkable except as noted in HPI and below Exam Const: General: comfortable and no acute distress HENMT: General nose exam: Normal nares present Eyes: Sclera: sclerae normal Neck: Neck: supple Resp: Effort & Inspection: normal respiratory effort Auscultation: clear to auscultation bilaterally Cardio: Rate: regular rate Rhythm: regular rhythm GI: Auscultation: normal bowel sounds Skin: General skin exam: normal color Neuro: Speech: normal speech Sensory Exam: normal sensation Psych: Affect: Anxious affect present Objective Data Meds/Results Radiology Results: ITS Impressions Abdomen X-Ray 10/11/19 09:24 IMPRESSION: 1. Constipation.
== END 2019-10-29 14:15 | disposition home health service (06) | DRG 57 ==
PROVIDERS: Family Medicine; Internal Medicine Nephrology; Psychiatry & Neurology Neurology; Admitting Provider Psychiatry & Neurology Neurology; PCP Internal Medicine; Visit Provider Psychiatry & Neurology Neurology
DX: I69.354 Hemiplegia and hemiparesis following cerebral infarction affecting left non-dominant side (principal); R45.851 Suicidal ideations; I69.311 Memory deficit following cerebral infarction; I69.398 Other sequelae of cerebral infarction; H53.462 Homonymous bilateral field defects, left side; I69.392 Facial weakness following cerebral infarction; I10 Essential (primary) hypertension; E78.5 Hyperlipidemia, unspecified; E03.9 Hypothyroidism, unspecified; E83.51 Hypocalcemia; E11.65 Type 2 diabetes mellitus with hyperglycemia; G50.0 Trigeminal neuralgia; K59.00 Constipation, unspecified; N40.1 Benign prostatic hyperplasia with lower urinary tract symptoms; R33.8 Other retention of urine; Z79.4 Long term (current) use of insulin; Z87.891 Personal history of nicotine dependence
CPT/HCPCS: 36415; 74018; 80048; 80053; 80061; 80069; 80185; 81001; 82465; 82533; 83036; 83883; 83930; 83935; 84100; 84155; 84165; 84295; 84443; 85025; 85027; 87077; 87086; 87088; 87186; 92507; 92523; 97110; 97129; 97130; 97162; 97167; 97530; 97535; 97542; A9270; J0834; J1644; J1815

== ENCOUNTER 2019-10-16 17:36 | Inpatient (IN) | payer MEDICARE, SELFPAY ==
--- NOTE | 2019-10-16 17:40 | ADMGEN ---
This patient, Abilio Grijalva, was admitted to Intensive Care Unit-10 from [facility]. Patient/family oriented to hospital policies and general routines including ID bracelet, bed and alarms, visiting hours, pain management, procedures, bathroom and other care routines, personal items, smoking policy, room service/diet, and visiting hours. Valuables list has been completed. Information on how to activate the Rapid Response Team has been discussed. Patient/Family are encouraged to report perceived risks to care and to ask questions if they do not understand what they are told or what they should do.
[2019-10-16 20:00] VITALS: BP 152/99; PULSE 72; RESP 21; TEMP 36.9; O2SAT 92
--- NOTE | 2019-10-16 20:04 | PM.IMHP ---
H&P: HPI History of Present Illness Date/Time: 10/16/19 20:04 Chief complaint: Suicidal Ideations Narrative: Abilio Grijalva is a 69 year old maleWho had been in [facility] since 10/08/2019. According to the patient he was doing some physical therapy but still had a flaccid left arm and leg. The patient presented to [facility] on October 04, 2019 after waking up a left-sided weakness. CT showed right occipital encephalomalacia. Patient was outside the window for a tPA treatment or a thrombectomy. A right occipital f infarct appeared to be developed. The patient had history of TIAs in the past. The patient had been living home alone in using a cane occasionally when his arthritis with flare up. His son in-law and daughter which check on him frequently. The patient had been recovering in [facility] and developed some depression. The patient stated that he was in [place] [facility] many years ago due to depression but is not currently on any medication. The patient stated that he had a plan today to wrap the call wheeler cord around his neck and raise his head of the bed up to strangulate himself. Patient is frustrated with losing his independence and not being able to do what he normally does. Patient feels that this is been a big change in the stressor in his life and felt that he just did want to live anymore. He had suicide thoughts and had a plan to commit suicide. I had a long discussion with the patient and he feels that he is very depressed at this point and is focused on the loss of his ability to move his left upper arm and leg. He feels useless. Patient is willing to talk to crisis and possibly go to inpatient psychiatric care. The patient agrees that he does need psychiatric care for his depression and agrees to voluntary himself for psychiatric care. He is agreeable to start medication for depression. Patient was placed in ICU with suicidal precautions. Date of service 10/16/2019 Review of Systems Review of Systems: All systems reviewed & are unremarkable except as noted in HPI and below Constitutional: Constitutional: Reports as per HPI and Reports no additional constitutional complaints Eyes: Eyes: Reports as per HPI and Reports no additional eye complaints ENT: Reports system reviewed and no additional complaints, except as documented and Reports Normal hearing present Cardiovascular: Cardiovascular: Reports no additional cardiovascular complaints Respiratory: Respiratory: Reports no additional respiratory complaints and Reports no additional respiratory complaints Gastrointestinal: Gastrointestinal: Reports as per HPI and Reports no additional gastrointestinal complaints Musculoskeletal: Musculoskeletal: Reports no additional musculoskeletal complaints Integumentary/Breasts: Skin/Breast: Reports system reviewed and no additional complaints, except as docu and Reports as per HPI Neurologic: Reports system reviewed and no additional complaints, except as documented, Reports as per HPI and Reports Normal hearing present Psychiatric: Psychiatric: Reports no additional psychiatric complaints and Reports as per HPI Endocrine: Endocrine: Reports no additional endocrine complaints Hematologic/Lymphatic: Hematologic/Lymphatic: Reports no additional hematologic/lymphatic complaints Allergic/Immunologic: Allergic/Immunologic: Reports no additional allergic/immunologic complaints [facility] Past Medical History Medical History (Updated 10/16/19 @ 20:24 by Stacy White NP) BPH (benign prostatic hyperplasia) Diabetes mellitus type 2 in nonobese Hyperlipidemia Hypothyroidism Status post placement of implantable loop recorder left upper chest Family History Family History (Updated 10/16/19 @ 20:16 by Stacy White NP) Mother Alzheimer's dementia Father Heart disease Sibling Heart disease Social History Social History (Updated 10/16/19 @ 20:18 by Stacy White NP) Social History: the patient draw als
[2019-10-16 20:30] VITALS: BMI 30.3
[2019-10-16 20:47] LABS: Glucose Point of Care 217 (65-105)
[2019-10-16] MEDS: SENNA/DOCUSATE SODIUM TABLET 1 TAB PO (23:29)
[2019-10-16] MEDS: PHENYTOIN SODIUM 100 MG CAP 300 MG PO (23:29)
[2019-10-16] MEDS: QUEtiapine FUMARATE 25 MG TABLET 50 MG PO (23:29)
[2019-10-17] VITALS (12 sets, daily range): BP systolic 105–152; BP diastolic 40–96; PULSE 82–97; RESP 15–23; TEMP 36.4–36.9; O2SAT 93–95; BMI 11.0
[2019-10-17 01:11] LABS: Basophils Absolute Auto 0.1 K/mm3 (0.0-0.1); Basophils Percent Auto 0.8 % (0.2-1.2); Eosinophils Absolute Auto 0.2 K/mm3 (0-0.3); Eosinophils Percent Auto 2.2 % (0-4.4); Hematocrit 36.6 % (42.0-52.0); Hemoglobin 12.7 g/dL (14.0-18.0); Immature Granulocyte Absolute 0.41 K/mm3 (0.00-0.031); Immature Granulocyte Percent A 3.8 % (0-0.5); Lymphocytes Absolute Auto 2.24 K/mm3 (0.9-3.2); Lymphocytes Percent Auto 20.9 % (18.3-44.2); Mean Corpuscular HGB Conc 34.7 g/dl (32-36); Mean Corpuscular Hemoglobin 33.4 pg (26-34); Mean Corpuscular Volume 96.3 fl (80-100); Mean Platelet Volume 9.5 fl (7.4-10.4); Monocytes Absolute Auto 1.3 K/mm3 (0.1-0.6); Monocytes Percent Auto 12.4 % (2.6-8.5); Neutrophils Absolute Auto 6.4 K/mm3 (1.3-6.7); Neutrophils Percent Auto 59.9 % (45.5-73.1); Platelet Count Result 303 k/mm3 (150-375); Red Cell Distribution Width 13.1 % (11.5-14.5); White Blood Count 10.7 K/mm3 (4.5-10.0)
--- NOTE | 2019-10-17 02:03 | PC.NURSE ---
10/16/19 pt answers orientation questions correctly but is convinced hi IV tubing is his glasses.
--- NOTE | 2019-10-17 02:05 | PC.NURSE ---
10/16/19 2330 Heparin not given due to no platelet count from today. Dr Moreno made aware and stat CBC ordered.
--- NOTE | 2019-10-17 02:34 | PC.NURSE ---
10/17/19 0100 Pt reaching into air and stating he is looking at his food and then states he is watching the [employer]-TV is not on.
[2019-10-17 04:46] LABS: Basophils Absolute Auto 0.1 K/mm3 (0.0-0.1); Basophils Percent Auto 0.6 % (0.2-1.2); Eosinophils Absolute Auto 0.2 K/mm3 (0-0.3); Eosinophils Percent Auto 1.9 % (0-4.4); Hemoglobin 12.2 g/dL (14.0-18.0); Immature Granulocyte Absolute 0.44 K/mm3 (0.00-0.031); Immature Granulocyte Percent A 3.5 % (0-0.5); Lymphocytes Absolute Auto 1.57 K/mm3 (0.9-3.2); Lymphocytes Percent Auto 12.6 % (18.3-44.2); Mean Corpuscular HGB Conc 33.9 g/dl (32-36); Mean Corpuscular Hemoglobin 33.1 pg (26-34); Mean Corpuscular Volume 97.6 fl (80-100); Mean Platelet Volume 9.6 fl (7.4-10.4); Monocytes Absolute Auto 1.4 K/mm3 (0.1-0.6); Monocytes Percent Auto 11.6 % (2.6-8.5); Neutrophils Absolute Auto 8.7 K/mm3 (1.3-6.7); Neutrophils Percent Auto 69.8 % (45.5-73.1); Platelet Count Result 320 k/mm3 (150-375); Red Blood Count 3.69 M/mm3 (4.6-6.20); Red Cell Distribution Width 13.2 % (11.5-14.5); White Blood Count 12.4 K/mm3 (4.5-10.0)
[2019-10-17 05:01] LABS: Alanine Aminotransferase 39 U/L (4-50); Alkaline Phosphatase 111 U/L (38-126); Anion Gap 9 mmol/L (8-16); Aspartate Amino Transferase 43 U/L (17-59); Bilirubin,Total 0.4 mg/dL (0.2-1.3); Blood Urea Nitrogen 20 mg/dL (9-20); Calcium 8.6 mg/dL (8.4-10.2); Carbon Dioxide 24 mmol/L (22-30); Chloride 95 mmol/L (98-107); Estimated CRCL calculation 56 ml/min; Estimated Glomerular Filt Rate > 60; Glucose 236 mg/dL (75-110); Magnesium 2.1 mg/dL (1.6-2.3); Potassium 5.3 mmol/L (3.4-5.0); Sodium 128 mmol/L (137-145)
[2019-10-17] MEDS: LEVOTHYROXINE SODIUM 50 MCG TABLET PO (06:47)
[2019-10-17] MEDS: HEPARIN SODIUM 5,000 UNITS/ML VIAL 5000 UNITS SUB-Q ×2 (06:49→13:27)
[2019-10-17] MEDS: VALSARTAN 160 MG TABLET 320 MG PO (09:14)
[2019-10-17] MEDS: GABAPENTIN 400 MG CAPSULE PO ×3 (09:15→17:37)
[2019-10-17] MEDS: amLODIPine BESYLATE 5 MG TABLET 10 MG PO (09:15)
[2019-10-17] MEDS: MECLIZINE HCL 25 MG TABLET PO (09:15)
[2019-10-17] MEDS: FLUTICASONE PROPIONATE 0.05% NA SPR 16 GM BTL (*BKC) 1 SPRAY NASAL (09:15)
[2019-10-17] MEDS: ASPIRIN 81 MG CHEWABLE TABLET PO (09:15)
[2019-10-17] MEDS: PHENYTOIN SODIUM 100 MG CAP 200 MG PO (09:16)
[2019-10-17] MEDS: TAMSULOSIN HCL 0.4 MG CAPSULE PO (09:16)
[2019-10-17] MEDS: SENNA/DOCUSATE SODIUM TABLET 1 TAB PO ×2 (09:16→17:38)
[2019-10-17] MEDS: ATORVASTATIN 40 MG TABLET PO (09:16)
[2019-10-17] MEDS: INSULIN ASPART (*BKC) 100 UNITS/ML SUB-Q ×3 (09:20→17:36)
[2019-10-17] MEDS: PARoxetine 20 MG TABLET PO (10:55)
[2019-10-17] MEDS: ACETAMINOPHEN 325 MG TABLET 650 MG PO (10:58)
[2019-10-17 11:59] LABS: Glucose Point of Care 240 (65-105)
[2019-10-17 12:02] LABS: Glucose Point of Care 262 (65-105)
[2019-10-17 16:52] LABS: Glucose Point of Care 277 (65-105)
--- NOTE | 2019-10-17 17:50 | PM.IMPN ---
Progress Note: A&P Assessment and Plan (1) Stroke: Code(s): I63.9 - Cerebral infarction, unspecified Status: Chronic Assessment and Plan: the patient had been in [facility] recovering from a stroke going through PT and OT. I did consult Dr. Strong. However the patient had some suicidal ideation and was Taken out of trc and placed on suicide precautions in ICU. The patient is feeling depressed about his inability to do the things that he usually does. I did order PT and OT. Will continue with patient's aspirin at looks like he is also on subcu heparin. continue with phenytoin 10/17/19 17:50 patient is 69 year male recently had a stroke with left upper and lower extremity weakness patient was initially seen at [facility] however patient presented of outside treatment window, patient was transferred to [facility] for rehab and patient has been and [facility] for close to be however patient is symptoms were not improving and he became quite depressed and expressed desire to kill himself, patient was evaluated and transferred to ICU for close observation, patient does realize that his depressed and he needs help and is willing to be admitted to psychiatric unit for further evaluation and management, patient has no medical patient currently and is clinically stable will have crisis team evaluate the patient and patient will benefit going into psychiatric inpatient care (2) Suicidal ideation: Code(s): R45.851 - Suicidal ideations Status: Acute Assessment and Plan: Patient was agreeable to start medication. So I did start him on Paxil. The patient has had a history of depression in the past. The patient did have a plan. I did consult respiratory care program director for crisis intervention. The patient is willing to do inpatient psych therapy if needed. (3) Diabetes mellitus type 2 in nonobese: Code(s): E11.9 - Type 2 diabetes mellitus without complications Status: Chronic Assessment and Plan: Accu-Cheks AC and HS. Continue with his diabetic medications that he takes at home. (4) Hypertension: Code(s): I10 - Essential (primary) hypertension Status: Chronic Assessment and Plan: Continue with amlodipine. continue valsartan. (5) Hypothyroidism: Code(s): E03.9 - Hypothyroidism, unspecified Status: Chronic Assessment and Plan: Continue levothyroxine (6) Hyperlipidemia: Code(s): E78.5 - Hyperlipidemia, unspecified Status: Chronic Assessment and Plan: continue with home medications Atorvastatin (7) BPH (benign prostatic hyperplasia): Code(s): N40.0 - Benign prostatic hyperplasia without lower urinary tract symptoms Status: Chronic Assessment and Plan: continue with tamsulosin. (8) Hemiparesis of left nondominant side: Code(s): G81.94 - Hemiplegia, unspecified affecting left nondominant side Status: Chronic Assessment and Plan: Continue with physical therapy and occupational therapy Subjective Date/time seen: 10/17/19 17:50 patient is 69 year male recently had a stroke with left upper and lower extremity weakness patient was initially seen at [facility] however patient presented of outside treatment window, patient was transferred to [facility] for rehab and patient has been and [facility] for close to be however patient is symptoms were not improving and he became quite depressed and expressed desire to kill himself, patient was evaluated and transferred to ICU for close observation, patient does realize that his depressed and he needs help and is willing to be admitted to psychiatric unit for further evaluation and management, patient has no medical patient currently and is clinically stable will have crisis team evaluate the patient and patient will benefit going into psychiatric inpatient care Review of Systems Review of Systems: All systems reviewed & are unremarkable exce
[2019-10-17 21:50] LABS: Glucose Point of Care 275 (65-105)
[2019-10-18] VITALS: PULSE 89; RESP 18
[2019-10-18] MEDS: PHENYTOIN SODIUM 100 MG CAP 300 MG PO ×2 (00:36→08:48)
[2019-10-18] MEDS: QUEtiapine FUMARATE 25 MG TABLET 50 MG PO (00:37)
[2019-10-18] MEDS: HEPARIN SODIUM 5,000 UNITS/ML VIAL 5000 UNITS SUB-Q ×2 (00:37→06:44)
[2019-10-18] MEDS: INSULIN GLARGINE (*BKC) 100 UNITS/ML 60 UNITS SUB-Q (00:38)
[2019-10-18] MEDS: SALINE 0.65% NAS SOLN 44 ML BTL 2 SPRAY NASAL (00:40)
[2019-10-18 06:00] VITALS: BP 126/82; PULSE 82; RESP 18; TEMP 36.8
[2019-10-18] MEDS: LEVOTHYROXINE SODIUM 50 MCG TABLET PO (06:44)
[2019-10-18 08:00] VITALS: BP 177/83; PULSE 82; PULSE 85; RESP 18; TEMP 37.1; O2SAT 93; O2SAT 96
[2019-10-18] MEDS: TAMSULOSIN HCL 0.4 MG CAPSULE PO (08:46)
[2019-10-18] MEDS: ASPIRIN 81 MG CHEWABLE TABLET PO (08:46)
[2019-10-18] MEDS: amLODIPine BESYLATE 5 MG TABLET 10 MG PO (08:47)
[2019-10-18] MEDS: VALSARTAN 160 MG TABLET 320 MG PO (08:48)
[2019-10-18] MEDS: ATORVASTATIN 40 MG TABLET PO (08:48)
[2019-10-18] MEDS: PARoxetine 20 MG TABLET PO (08:50)
[2019-10-18] MEDS: SENNA/DOCUSATE SODIUM TABLET 1 TAB PO (08:51)
[2019-10-18] MEDS: GABAPENTIN 400 MG CAPSULE PO ×2 (08:51→12:37)
[2019-10-18] MEDS: FLUTICASONE PROPIONATE 0.05% NA SPR 16 GM BTL (*BKC) 1 SPRAY NASAL (08:52)
[2019-10-18] MEDS: PHENYTOIN SODIUM 100 MG CAP 200 MG PO (08:52)
[2019-10-18 09:26] LABS: Anion Gap 7 mmol/L (8-16); Blood Urea Nitrogen 23 mg/dL (9-20); Calcium 8.4 mg/dL (8.4-10.2); Carbon Dioxide 22 mmol/L (22-30); Chloride 100 mmol/L (98-107); Estimated CRCL calculation 62 ml/min; Estimated Glomerular Filt Rate > 60; Glucose 277 mg/dL (75-110); Magnesium 2.2 mg/dL (1.6-2.3); Potassium 5.6 mmol/L (3.4-5.0); Sodium 129 mmol/L (137-145)
[2019-10-18] MEDS: INSULIN ASPART (*BKC) 100 UNITS/ML SUB-Q ×2 (10:40→13:28)
[2019-10-18 11:00] LABS: Glucose Point of Care 284 (65-105)
--- NOTE | 2019-10-18 11:11 | PC.NURSE ---
Spoke with care coordination regarding move to [facility]. Crisis was in to see patient yesterday and did a safety contract with patient.
[2019-10-18] MEDS: SODIUM POLYSTYRENE SULFONONATE 15 GM/60 ML BTL PO (12:36)
--- NOTE | 2019-10-18 12:58 | PM.DS ---
DS: Admitting Diagnosis Admitting Diagnosis Admitting Diagnosis: Suicidal Ideations DS: Discharge Diagnosis Discharge Diagnosis (1) Stroke: Code(s): I63.9 - Cerebral infarction, unspecified Status: Chronic Assessment and Plan: the patient had been in [facility] recovering from a stroke going through PT and OT. I did consult Dr. Strong. However the patient had some suicidal ideation and was Taken out of trc and placed on suicide precautions in ICU. The patient is feeling depressed about his inability to do the things that he usually does. I did order PT and OT. Will continue with patient's aspirin at looks like he is also on subcu heparin. continue with phenytoin 10/17/19 17:50 patient is 69 year male recently had a stroke with left upper and lower extremity weakness patient was initially seen at [facility] however patient presented of outside treatment window, patient was transferred to [facility] for rehab and patient has been and [facility] for close to be however patient is symptoms were not improving and he became quite depressed and expressed desire to kill himself, patient was evaluated and transferred to ICU for close observation, patient does realize that his depressed and he needs help and is willing to be admitted to psychiatric unit for further evaluation and management, patient has no medical patient currently and is clinically stable will have crisis team evaluate the patient and patient will benefit going into psychiatric inpatient care (2) Suicidal ideation: Code(s): R45.851 - Suicidal ideations Status: Acute Assessment and Plan: Patient was agreeable to start medication. So I did start him on Paxil. The patient has had a history of depression in the past. The patient did have a plan. I did consult insurance healthcare consultant for crisis intervention. The patient is willing to do inpatient psych therapy if needed. (3) Diabetes mellitus type 2 in nonobese: Code(s): E11.9 - Type 2 diabetes mellitus without complications Status: Chronic Assessment and Plan: Accu-Cheks AC and HS. Continue with his diabetic medications that he takes at home. (4) Hypertension: Code(s): I10 - Essential (primary) hypertension Status: Chronic Assessment and Plan: Continue with amlodipine. continue valsartan. (5) Hypothyroidism: Code(s): E03.9 - Hypothyroidism, unspecified Status: Chronic Assessment and Plan: Continue levothyroxine (6) Hyperlipidemia: Code(s): E78.5 - Hyperlipidemia, unspecified Status: Chronic Assessment and Plan: continue with home medications Atorvastatin (7) BPH (benign prostatic hyperplasia): Code(s): N40.0 - Benign prostatic hyperplasia without lower urinary tract symptoms Status: Chronic Assessment and Plan: continue with tamsulosin. (8) Hemiparesis of left nondominant side: Code(s): G81.94 - Hemiplegia, unspecified affecting left nondominant side Status: Chronic Assessment and Plan: Continue with physical therapy and occupational therapy DS: Summary Hospital Course Reason for hospitalization: Chief complaint: Suicidal Ideations Narrative: Abilio Grijalva is a 69 year old maleWho had been in [facility] since 10/08/2019. According to the patient he was doing some physical therapy but still had a flaccid left arm and leg. The patient presented to [facility] on October 04, 2019 after waking up a left-sided weakness. CT showed right occipital encephalomalacia. Patient was outside the window for a tPA treatment or a thrombectomy. A right occipital f infarct appeared to be developed. The patient had history of TIAs in the past. The patient had been living home alone in using a cane occasionally when his arthritis with flare up. His son in-law and daughter which check on him frequently. The patient had been recovering in [facility] and developed some
[2019-10-18 13:51] LABS: Glucose Point of Care 336 (65-105)
[2019-10-18 17:06] LABS: Glucose Point of Care 260 (65-105)
[2019-10-19 16:16] LABS: SARS-CoV-2 RNA PCR Negative
== END 2019-10-18 14:55 | DRG 881 ==
PROVIDERS: Family Medicine; Nurse Practitioner; Admitting Provider Internal Medicine; PCP Internal Medicine; Visit Provider Family Medicine
DX: F32.9 Major depressive disorder, single episode, unspecified (principal); R45.851 Suicidal ideations; I69.354 Hemiplegia and hemiparesis following cerebral infarction affecting left non-dominant side; E11.9 Type 2 diabetes mellitus without complications; Z20.828 Contact with and (suspected) exposure to other viral communicable diseases; I10 Essential (primary) hypertension; E03.9 Hypothyroidism, unspecified; E78.5 Hyperlipidemia, unspecified; N40.0 Benign prostatic hyperplasia without lower urinary tract symptoms; M19.90 Unspecified osteoarthritis, unspecified site
CPT/HCPCS: 36415; 80048; 80053; 83735; 84443; 85025; 87086; 87635; 97110; 97162; 97167; A9270; C9803; J1644; J1815; U0003